=== PATIENT | male | born 1945 | race Caucasian/White ===

== ENCOUNTER → 2016-03-19 | Outpatient (CLI) | payer OTHER ==
[~2016-03-19] MED LIST: ASPI81TA28 PO; CHOL100010 PO; CINN500T PO; GLC/500 PO; LISI5TAB PO; MULT-506 PO; PRLSR20 PO; SIMV20TA2 PO
== END | disposition home or self-care (01) ==
LOC: C.LABPBG 09:14
PROVIDERS: ATTEND Internal Medicine Gastroenterology
DX: E31.21 Multiple endocrine neoplasia [MEN] type I (principal)

== ENCOUNTER → 2016-08-20 | Outpatient (CLI) | payer OTHER ==
[2016-08-20 15:25] LABS: BLOOD UREA NITROGEN 19 mg/dl (7-18)
--- NOTE | 2016-08-20 15:52 | DIAGNOSTIC IMAGING REPORT ---
BRAIN WITHOUT CONTRAST HISTORY: Memory loss. Mental status change. DEMENTIA TECHNIQUE: Multiplanar multisequence MRI of the brain was performed without the use of contrast. COMPARISON STUDY: None. FINDINGS: Mild age-related atrophy. Mild chronic small vessel change involving the periventricular and deep white matter regions. Ventricular system is midline. Sella and parasellar regions are unremarkable. Diffusion-weighted images show no evidence for an acute ischemic event. IMPRESSION: Age-related atrophy and chronic small vessel change. No acute process. The above report was generated using voice recognition software. It may contain grammatical, syntax or spelling errors. Electronically signed by: Santosh Briscoe M.D. 08/20/2016 3:51 PM Dictated Date/Time: 08/20/2016 3:49 PM
== END | disposition home or self-care (01) ==
LOC: C.MRI 14:31
PROVIDERS: ATTEND Family Medicine
DX: I10 Essential (primary) hypertension (principal); F03.90 Unspecified dementia, unspecified severity, without behavioral disturbance, psychotic disturbance, mood disturbance, and anxiety

== ENCOUNTER → 2016-09-22 | Outpatient (CLI) | payer OTHER ==
[2016-09-22 12:55] LABS: ESTIMATED AVERAGE GLUCOSE 123 mg/dl; HA1C FLAG Normal (Normal)
[2016-09-22 13:02] LABS: BLOOD UREA NITROGEN 15 mg/dl (7-18); BUN/CREATININE RATIO 17.1 (10-20); CALCIUM 9.4 mg/dl (8.5-10.1); CARBON DIOXIDE 28 mmol/L (21-32); CHLORIDE 106 mmol/L (98-107); CREATININE 0.86 mg/dl (0.60-1.40); GLUCOSE,FASTING 100 mg/dl (70-99); MAGNESIUM 2.1 mg/dl (1.8-2.4); POTASSIUM 4.3 mmol/L (3.5-5.1); SODIUM 139 mmol/L (136-145)
[2016-09-22 13:05] LABS: HEMATOCRIT 44.6 % (42-52); MEAN CELL VOLUME 95.3 fL (80-100); MEAN CORPUSCULAR HEMOGLOBIN 32.1 pg (25-34); MEAN CORPUSCULAR HGB CONC 33.6 g/dl (32-36); PLATELET COUNT 201 K/uL (130-400); RED BLOOD COUNT 4.68 M/uL (4.7-6.1); WHITE BLOOD COUNT 6.21 K/uL (4.8-10.8)
[2016-09-22 13:14] LABS: ALKALINE PHOSPHATASE 120 U/L (45-117); ALT/SGPT 32 U/L (12-78); AST/SGOT 24 U/L (15-37); CHOLESTEROL 106 mg/dl (0-200); CHOLESTEROL/HDL RATIO 2.9; HDL CHOLESTEROL 37 mg/dl; TRIGLYCERIDES 67 mg/dl (0-150); VERY LOW DENSITY LIPOPROT CALC 13 mg/dl
== END | disposition home or self-care (01) ==
LOC: C.LABPBG 09:19
PROVIDERS: ATTEND Family Medicine
DX: E78.5 Hyperlipidemia, unspecified (principal); I10 Essential (primary) hypertension; Z79.899 Other long term (current) drug therapy

== ENCOUNTER → 2016-10-22 | Outpatient (CLI) | payer OTHER | END | disposition home or self-care (01) | LOC: C.LAB 11:24 | PROVIDERS: ATTEND Psychiatry & Neurology Neurology | DX: R41.3 Other amnesia (principal) ==

== ENCOUNTER 2017-03-30 08:10 | Inpatient (IN) | payer OTHER ==
[2017-03-24 15:18] VITALS: BMI 24.0
--- NOTE | 2017-03-24 15:59 | PAT Medication Instructions ---
Service Date Mar 24, 2017. Current Home Medication List Aspirin (Aspirin Ec), 81 MG PO QAM Cholecalciferol (Vitamin D3), 1 TAB PO QAM Donepezil HCl (Aricept), 10 MG PO DAILY Lisinopril (Prinivil), 10 MG PO QAM Multivitamin (Multivitamin), 1 TAB PO QAM Omeprazole (Prilosec), 40 MG PO BID Simvastatin (Zocor), 20 MG PO HS Medication Instructions For Your Scheduled Surgery - Continue as directed: Donepezil HCl (Aricept), 10 MG PO DAILY - Hold the following medications the morning of surgery: Cholecalciferol (Vitamin D3), 1 TAB PO QAM Lisinopril (Prinivil), 10 MG PO QAM Multivitamin (Multivitamin), 1 TAB PO QAM - Take the following medications the morning of surgery with a sip of water: Omeprazole (Prilosec), 40 MG PO BID Aspirin (Aspirin Ec), 81 MG PO QAM - Take the following medications as scheduled the night before surgery: Omeprazole (Prilosec), 40 MG PO BID Simvastatin (Zocor), 20 MG PO HS If you have any questions please call us at [phone] or [phone] or [phone]
[2017-03-24 16:29] LABS: BASO % 0.3 %; BASO ABS # 0.02 K/uL (0-0.2); EOS ABS # 0.06 K/uL (0-0.5); HEMATOCRIT 42.4 % (42-52); HEMOGLOBIN 14.6 g/dL (14.0-18.0); IG# 0.01 K/uL (0.00-0.02); LYMPH % 26.7 %; LYMPH ABS # 1.54 K/uL (1.2-3.4); MEAN CORPUSCULAR HEMOGLOBIN 32.4 pg (25-34); MEAN CORPUSCULAR HGB CONC 34.4 g/dl (32-36); MONO % 8.2 %; MONO ABS # 0.47 K/uL (0.11-0.59); NEUT % 63.6 %; NEUT ABS # 3.66 K/uL (1.4-6.5); PLATELET COUNT 184 K/uL (130-400); RED CELL DISTRIBUTION WIDTH CV 13.1 % (11.5-14.5); WHITE BLOOD COUNT 5.76 K/uL (4.8-10.8)
[2017-03-24 16:36] LABS: ALBUMIN 3.4 gm/dl (3.4-5.0); CALCIUM 9.6 mg/dl (8.5-10.1); CREATININE 0.99 mg/dl (0.60-1.40); POTASSIUM 4.6 mmol/L (3.5-5.1)
--- NOTE | 2017-03-24 16:37 | DIAGNOSTIC IMAGING REPORT ---
CHEST 2 VIEWS ROUTINE CLINICAL HISTORY: pat preoperative evaluation COMPARISON STUDY: 08/16/2014 FINDINGS: The bones soft tissues and hemidiaphragms are normal. The cardiomediastinal silhouette is normal. The lungs are clear. The pulmonary vasculature is normal. IMPRESSION: Negative chest. The above report was generated using voice recognition software. It may contain grammatical, syntax or spelling errors. Electronically signed by: Santosh Briscoe M.D. 03/24/2017 4:35 PM Dictated Date/Time: 03/24/2017 4:35 PM
[2017-03-24 16:41] LABS: INR 1.1 (0.9-1.1); PTT PATIENT 26.4 SECONDS (21.0-31.0)
--- NOTE | 2017-03-24 18:13 | HISTORY & PHYSICAL EXAMINATION ---
DATE OF ADMISSION: 03/30/2017 CHIEF COMPLAINT: Bilateral knee pain. HISTORY OF PRESENT ILLNESS: Mr. Clay is a 71-year-old male with a 1- to 2-year history of worsening bilateral knee pain. The patient rates his pain an 8/10. He has pain with his daily activities. He has limited standing and walking tolerance. Pain is worse with weightbearing. The patient has had injections, bracing over the years. He leads a fairly active lifestyle and has difficulty with his ADLs. He has failed conservative treatment and is scheduled for bilateral knee replacement. PAST MEDICAL HISTORY: Borderline diabetes. He denies heart disease or DVT. PAST SURGICAL HISTORY: Lumbar discectomy, cholecystectomy, left shoulder repair, parathyroidectomy. SOCIAL HISTORY: The patient denies alcohol or tobacco use. He lives in a single story home. He is and retired. FAMILY HISTORY: Negative for DVT. MEDICATIONS: Simvastatin 40 mg half tablet daily, omeprazole 20 mg 2 tablets twice daily, lisinopril 10 mg daily, aspirin 81 mg daily, vitamin D3 one daily, multivitamin 1 daily, donepezil 10 mg daily. ALLERGIES: None. REVIEW OF SYSTEMS: See HPI. Ten other systems reviewed, all negative. PHYSICAL EXAMINATION: VITAL SIGNS: Height 6 feet 0 inch, weight 176 pounds, BMI 24. GENERAL: This is a well-developed, well-nourished male who is alert and oriented x3. Mood and affect are appropriate. HEENT: Normocephalic, atraumatic. Mucous membranes are moist and intact. NECK: Supple without lymphadenopathy. HEART: Regular rate and rhythm without murmurs, rubs or gallops. LUNGS: Clear to auscultation without wheezes or rhonchi. ABDOMEN: Soft and nontender. Bowel sounds are equal and active. EXTREMITIES: No ecchymosis, redness or warmth. Thigh and calf are soft and nontender. Right knee shows neutral alignment. Range of motion is from 0-115 degrees. He has minimal effusion. He is neurovascularly intact. Left knee shows a varus deformity. Range of motion is from 3-115 degrees with +2 laxity. His deformity does correct to neutral. He has mild effusion. He is neurovascularly intact. X-RAY EXAMINATION: AP and lateral views show joint space narrowing and osteophyte formation in both knees. IMPRESSION: Degenerative joint disease, bilateral knees. PLAN: The patient will be admitted for bilateral total knee replacement with Dr. Baez. We will plan on aspirin for DVT prophylaxis. The patient is planning on short rehab stay at [facility] upon discharge.
[2017-03-25 06:34] LABS: HEMOGLOBIN A1C 5.8 % (4.5-5.6)
[~2017-03-30] VITALS: Ht 180.3 cm; Wt 79.9 kg
[2017-03-30] VITALS (8 sets, daily range): BP systolic 105–171; BP diastolic 46–96; PULSE 53–78; TEMP 35.8–36.8; O2SAT 95–99; Ht 180.3 cm; Wt 79.9 kg
--- NOTE | 2017-03-30 08:06 | History & Physical Bridge Note ---
H&P Re-Evaluation Bridge Note: I have examined the patient, reviewed the History & Physical and in the interval since the performance of the History & Physical I have noted the following changes of clinical significance: No changes noted
[~2017-03-30 08:10] MED LIST changes: +BUPIVACAINE 0.25% 30 ML VIAL ONE; +BUPIVACAINE 0.5 % 5 MG/1 ML PF 10ML VIAL ONE; +CHOL1000 PO; -CHOL100010 PO; -CINN500T PO; +DONE5TAB9 PO; -GLC/500 PO; +LACTATED RINGER'S 1000ML 1,000 ML IV SCH; +LACTATED RINGER'S 1000ML 500 ML IV SCH
[2017-03-30] MEDS ORDERED: CEFAZOLIN SOD 1000MG/7.5 ML IV PUSH IV ONE (09:15)
[2017-03-30] MEDS ORDERED: CeleBREX 200 MG CAP ONE (09:16)
[2017-03-30] MEDS ORDERED: ACETAMINOPHEN 500 MG TAB PO ONE (09:16)
[2017-03-30] MEDS ORDERED: DEXAMETHASONE 4 MG TAB ONE (09:16)
[2017-03-30] MEDS ORDERED: GABAPENTIN 300 MG CAP PO ONE (09:17)
[2017-03-30] MEDS ORDERED: FAMOTIDINE 20 MG TAB ONE (09:17)
[2017-03-30] MEDS ORDERED: METOCLOPRAMIDE HCL 10 MG TAB PO ONE (09:18)
[2017-03-30] MEDS ORDERED: ROPIVACAINE 5MG/ML 30 ML 150 MG, BUPIVACAINE 0.5% MPF INJ 30 ML, EpINEphrine HCL INJ 0.... INFIL SCH ×8 (09:30)
[2017-03-30] MEDS ORDERED: MIDAZOLAM HCL 1 MG/ML 2ML VIAL ONE ×2 (09:37)
[2017-03-30] MEDS ORDERED: FENTANYL CITRATE INJ 50 MCG/1 ML 2 ML VIAL ONE (09:37)
[2017-03-30] MEDS ORDERED: BACITRACIN 50000 UNIT VIAL ONE (09:39)
[2017-03-30] MEDS ORDERED: POVIDONE-IODINE OP SOLN 30 ML BTL ONE (09:39)
[2017-03-30] MEDS ORDERED: ONDANSETRON INJ 2 MG/ML 2 ML VIAL IV PRN ×2 (09:45→12:45)
[2017-03-30] MEDS ORDERED: EpHEDrine SULFATE INJ 50 MG/ML AMP IV PRN (09:45)
[2017-03-30] MEDS ORDERED: ATROPINE SULFATE 0.1 MG/ML 5ML SYR IV PRN (09:45)
[2017-03-30] MEDS ORDERED: FENTANYL CITRATE INJ 50 MCG/1 ML 2 ML VIAL IV PRN (09:45)
[2017-03-30] MEDS ORDERED: BUPIVACAINE 0.5 % 5 MG/1 ML PF 10ML VIAL ONE (10:28)
--- NOTE | 2017-03-30 10:40 | History & Physical Bridge Note ---
H&P Re-Evaluation Bridge Note: I have examined the patient, reviewed the History & Physical and in the interval since the performance of the History & Physical I have noted the following changes of clinical significance: No changes noted the procedure been changed to left total knee arthroplasty after discussion with anesthesia regarding patient risk factors of the procedure will be a left total knee arthroplasty
[2017-03-30] MEDS: TRANEXAMIC ACID INJ 1,000 MG x 2 Bags IV SCH ×4 (10:43→14:57)
[2017-03-30] MEDS ORDERED: LIDOCAINE HCL 2% 2 ML VIAL (20MG/ML) ONE (12:02)
[2017-03-30] MEDS ORDERED: PROPOFOL IV EMULSION 10 MG/ML 20 ML VIAL IV ONE (12:02)
--- NOTE | 2017-03-30 12:02 | [facility] Post Operative Brief Note ---
Immediate Operative Summary Operative Date Mar 30, 2017. Pre-Operative Diagnosis left knee osteoarthritis Post-Operative Diagnosis left knee osteoarthritis Procedure(s) Performed left knee total arthroplasty Surgeon Dr. Oni Baez Enrichment Specialist Surgeon(s) Bismark Ghosh Estimated Blood Loss 5ML Findings Consistent with Post-Op Diagnosis Specimens A: Left knee bone and tissue Anesthesia Type MAC Spinal Regional Complication(s) none Disposition Disposition: Recovery Room / PACU
--- NOTE | 2017-03-30 12:03 | [facility] Operative Report ---
Operative Report Operative Date Mar 30, 2017. Pre-Operative Diagnosis left knee osteoarthritis Post-Operative Diagnosis left knee osteoarthritis Procedure(s) Performed left knee total arthroplasty utilizing Harrison & Nephew journey 2 non-block size 6 femur 6 tibia 11 Dilia [address] Oni Baez Office Manager Surgeon(s) Bismark Ghosh Estimated Blood Loss 5ML Findings Patient presents with severe end-stage DJD left knee with tricompartmental arthritis medial compartment DJD subchondral sclerosis osteophytes marginal osteophytes Specimens A: Left knee bone and tissue Anesthesia Type MAC Spinal Regional Complication(s) none Disposition Recovery Room / PACU Indications Patient presents after failing attempts at conservative management including physical therapy anti-inflammatories Roto-Rest activity modification proper findings revealed subchondral sclerosis osteophytes marginal osteophytes sclerosis bone the bone medial compartment. Description of Procedure After proper prepping and draping of the left lower extremity anterior midline incision was made over the region of the extensor extensor mechanism after meticulous hemostasis was obtained and maintained in subcutaneous tissues a medial parapatellar incision was made The patella was subluxed lateralward the medial lateral gutter were cleaned from any hypertrophic synovitis and scar tissue of the distal femoral block was placed and the distal femoral osteotomy cut was made subsequently the chamfers anterior and posterior osteotomy cuts were made utilizing the 4-in-1 block the tibia was subsequently subluxed anteriorward medial and ateral meniscal remnants were excised in their entirety remnants of the anterior and posterior cruciate ligaments were excised in their entirety excellent exposure of the proximal tibia was obtained the tibial osteotomy guide was placed on the proximal tibial osteotomy cut was made once again the knee was irrigated with copious amounts of sterile saline solution the patella was subsequently everted lateralward thickened scar tissue around the patella was removed the patella was subsequently cut utilizing a freehand technique and was drilled prepared for final preparation and placement of patella socially flexion-extension gaps were checked and the equal and symmetric trials were placed to the appropriate femoral and tibial trials with poly-spacer being placed for equal flexion and extension gaps and full range of motion including extension to 0 and flexion to 140 the trial components after having been taken to recovery range of motion was subsequently removed meticulous hemostasis was obtained and maintained subsequently a knee block injection of joint cocktail including ropivacaine 0.5% 150 mg. Bupivacaine 0.5 % epinephrine 1-200,030 mL's toradol 30 mg dexamethasone 4 mg ketamine 10 mg clonidine 100 micrograms normal saline solution 30 mg was infiltrated into the soft tissues of the posterior knee medial lateral gutters and periosteal synovium special attention was paid to protect neurovascular structures at all times subsequently trial components having been removed the knee was irrigated with sterile saline solution. debris was removed the proximal tibia was subsequently prepared and was made ready for the placement of the tibial component tibial component was also cemented and tamped into position the femoral component was subsequently placed and cemented in the position the patellar component was subsequently cemented in position because hemostasis once again obtained and maintained wound having been thoroughly irrigated with debridement and debridement lavage was performed as well as a medial parapatellar incision closed with #1 Vicryl in interrupted fashion subcutaneous was closed with #2 Vicryl skin was closed with skin clips. PA-C was necessary for prepping and drapping as well as wound closure of deep fascia Sub cutaneous tissue and skin and was necessary for the case. A sterile compressive dressing was placed patient was taken to recovery in stable condition of report dictated by Nestor I attest to the content of the Intraoperative Record and any orders documented therein. Any exceptions are noted below. I attest to the content of the Intraoperative Record and any orders documented therein. Any exceptions are noted below.
[2017-03-30] MEDS ORDERED: OXYCODONE HCL IR 5 MG TAB (IMMEDIATE RELEASE) PO PRN (12:45)
[2017-03-30] MEDS ORDERED: ALUMINUM/MAGNESIUM/SIMETH (MAALOX MAX) 30 ML UDC PO PRN (12:45)
[2017-03-30] MEDS ORDERED: CEFAZOLIN IV 2,000 MG in DEXTROSE 5% 50ML 50 ML IV SCH (12:45)
[2017-03-30] MEDS ORDERED: TRAMADOL HCL 50 MG TAB PO PRN (12:45)
[2017-03-30] MEDS ORDERED: MoRPHine SULFATE 2 MG/ML CARP IV PRN (12:45)
[2017-03-30] MEDS ORDERED: MAGNESIUM HYDROXIDE SUSP 30 ML UDC PO PRN (12:45)
[2017-03-30] MEDS ORDERED: TAMSULOSIN HCL 0.4 MG CAP PO PRN (12:45)
--- NOTE | 2017-03-30 13:05 | Anesthesiology Progress Note ---
Anesthesia Post Op Note Date & Time Mar 30, 2017 at 13:05 Vital Signs Pain Intensity: 0 Vital Signs Past 12 Hours Date Time Temp Pulse Resp B/P (MAP) Pulse Ox O2 Delivery O2 Flow Rate FiO2 03/30/17 12:45 55 16 117/67 100 Oxymask 8 03/30/17 12:35 36.3 60 16 121/71 99 Oxymask 8 03/30/17 09:10 36.4 57 18 171/96 97 Room Air Notes Mental Status: alert / awake / arousable, participated in evaluation Pt Amnestic to Procedure: Yes Nausea / Vomiting: adequately controlled Pain: adequately controlled Airway Patency, RR, SpO2: stable & adequate BP & HR: stable & adequate Hydration State: stable & adequate Neuraxial Anesthesia: was administered, sensory block is resolving Anesthetic Complications: no major complications apparent
--- NOTE | 2017-03-30 13:18 | DIAGNOSTIC IMAGING REPORT ---
L KNEE 1 OR 2 VIEWS ROUTINE CLINICAL HISTORY: Left knee arthroplasty. COMPARISON: None FINDINGS: Alignment of the total left knee arthroplasty is anatomic. There is no fracture or unexpected radiopaque foreign body. There are drains and skin sumi. IMPRESSION: Expected findings following total left knee arthroplasty. Electronically signed by: Magdiel Saucedo M.D. 03/30/2017 1:17 PM Dictated Date/Time: 03/30/2017 1:16 PM
[2017-03-30] MEDS: ACETAMINOPHEN 500 MG TAB PO SCH (15:59)
[2017-03-30] MEDS ORDERED: PNEUMOCOCCAL ADMINISTRATION CHARGE ONE (18:00)
[2017-03-30] MEDS ORDERED: PNEUMOCOCCAL POLYSACCHARIDES 25 MCG/0.5 ML VIAL/SYR IM. ONE (18:00)
[2017-03-30] MEDS: CEFAZOLIN IV 2,000 MG in SYRINGE 0 ML IV SCH (18:57)
[2017-03-30] MEDS: FERROUS GLUCONATE 324 MG TAB PO SCH (18:57)
[2017-03-30] MEDS: SODIUM CHLORIDE 0.9% 1000ML 1,000 ML IV SCH (21:31)
[2017-03-30] MEDS: SIMVASTATIN 20 MG TAB PO SCH (21:31)
[2017-03-30] MEDS: ASPIRIN 81 MG ECTAB PO SCH (21:32)
[2017-03-30] MEDS: CeleBREX 200 MG CAP PO SCH (21:32)
[2017-03-30] MEDS: SENNA 8.6 MG TAB PO SCH (21:33)
[2017-03-30] MEDS: DOCUSATE SODIUM 100 MG CAP PO SCH (21:33)
[2017-03-30] MEDS ORDERED: NURSING VERBAL MED ORDER ONE (23:00)
[2017-03-31] VITALS (7 sets, daily range): BP systolic 99–112; BP diastolic 47–63; PULSE 61–79; TEMP 36.1–36.9; O2SAT 94–100
[2017-03-31] MEDS: ACETAMINOPHEN 500 MG TAB PO SCH ×3 (00:31→17:13)
[2017-03-31] MEDS: CEFAZOLIN IV 2,000 MG in SYRINGE 0 ML IV SCH (01:53)
[2017-03-31] MEDS: SODIUM CHLORIDE 0.9% 1000ML 1,000 ML IV SCH (07:18)
[2017-03-31 07:44] LABS: HEMATOCRIT 34.2 % (42-52); MEAN CELL VOLUME 92.2 fL (80-100); MEAN CORPUSCULAR HEMOGLOBIN 32.3 pg (25-34); MEAN CORPUSCULAR HGB CONC 35.1 g/dl (32-36); MEAN PLATELET VOLUME 9.7 fL (7.4-10.4); PLATELET COUNT 172 K/uL (130-400); RED CELL DISTRIBUTION WIDTH CV 12.7 % (11.5-14.5); RED CELL DISTRIBUTION WIDTH SD 43.2 fL (36.4-46.3); WHITE BLOOD COUNT 18.58 K/uL (4.8-10.8)
--- NOTE | 2017-03-31 08:11 | Orthopedic Progress Note ---
Orthopedic Progress Note Date of Service Mar 31, 2017. Subjective Post OP Day: 1 Reports: feeling well, Denies: chest pain, SOB, nausea / vomiting, light headedness, calf pain Objective calves soft nontender, N/V intact, capillary refill less than 2 sec., dressing C /D/I, A&O x3, toes mobile, hemovac drainage (105/5cc per shift) Date Time Temp Pulse Resp B/P (MAP) Pulse Ox O2 Delivery O2 Flow Rate FiO2 03/31/17 08:00 36.1 61 12 110/60 (77) 100 Room Air 03/31/17 06:58 36.8 79 18 112/63 (79) 98 Room Air 03/31/17 03:20 36.9 75 16 99/47 (64) 97 Room Air 03/31/17 00:30 Room Air 03/30/17 23:29 36.7 72 17 105/46 (65) 96 Room Air 03/30/17 20:03 36.8 71 18 116/57 (76) 95 Room Air 03/30/17 16:42 36.4 78 18 146/72 (96) 99 Nasal Cannula 2.0 03/30/17 15:44 35.8 71 16 147/81 (103) 98 Nasal Cannula 3.0 03/30/17 15:03 69 15 137/70 (92) 99 03/30/17 14:36 36.4 58 15 135/75 (95) 99 03/30/17 13:45 Nasal Cannula 2.0 03/30/17 13:45 Nasal Cannula 2.0 03/30/17 13:45 36.4 53 16 131/69 (89) 96 Nasal Cannula 2.0 03/30/17 13:15 36.5 54 13 123/65 99 Nasal Cannula 2 03/30/17 13:05 59 20 130/65 97 Nasal Cannula 2 03/30/17 12:55 62 14 118/79 93 Nasal Cannula 2 03/30/17 12:45 55 16 117/67 100 Oxymask 8 03/30/17 12:35 36.3 60 16 121/71 99 Oxymask 8 03/30/17 09:10 36.4 57 18 171/96 97 Room Air Laboratory Results 24 Hours: Test 03/31/17 07:18 Hematocrit 34.2 % Hemoglobin 12.0 g/dL Assessment & Plan Assessment: POD#1 sp left TKA Plan: PT/OT DVT proph- ASA 81mg bid Pain management- Alisa, Tylenol DC planning- Initially patient was considering inpt rehab with BL TKA. Now that he is just a single he may consider home PT. Patient will see how PT goes today and discuss with .Anticipate DC tomorrow.
[2017-03-31 08:13] LABS: CALCIUM 9.1 mg/dl (8.5-10.1); CREATININE 1.07 mg/dl (0.60-1.40); POTASSIUM 3.8 mmol/L (3.5-5.1)
[2017-03-31] MEDS: FERROUS GLUCONATE 324 MG TAB PO SCH ×3 (08:30→17:14)
[2017-03-31] MEDS: LISINOPRIL 5 MG TAB PO SCH (09:11)
[2017-03-31] MEDS: DOCUSATE SODIUM 100 MG CAP PO SCH ×2 (09:11→20:54)
[2017-03-31] MEDS: CeleBREX 200 MG CAP PO SCH ×2 (09:11→20:53)
[2017-03-31] MEDS: DONEPEZIL HCL 5 MG TAB PO SCH (09:11)
[2017-03-31] MEDS: ASPIRIN 81 MG ECTAB PO SCH ×2 (09:12→20:53)
[2017-03-31] MEDS: CHOLECALCIFEROL 1000 INTER.UNIT TAB PO SCH (09:12)
[2017-03-31] MEDS: MULTIVITAMIN TAB PO SCH (09:12)
[2017-03-31] MEDS: PANTOprazole SOD 40 MG TAB PO SCH (09:56)
[2017-03-31] MEDS: SENNA 8.6 MG TAB PO SCH (20:54)
[2017-03-31] MEDS: SIMVASTATIN 20 MG TAB PO SCH (20:54)
[2017-04-01] MEDS: ACETAMINOPHEN 500 MG TAB PO SCH ×2 (00:25→08:55)
[2017-04-01 07:03] VITALS: BP 124/62; PULSE 64; TEMP 36.9; O2SAT 97
--- NOTE | 2017-04-01 07:55 | Orthopedic Progress Note ---
Orthopedic Progress Note Date of Service Apr 01, 2017. Subjective Post OP Day: 2 Reports: feeling well, Denies: complaints Objective calves soft nontender, N/V intact, dressing C/D/I (Silverlon with scant drainage noted), A&O x3, toes mobile Date Time Temp Pulse Resp B/P (MAP) Pulse Ox O2 Delivery O2 Flow Rate FiO2 04/01/17 07:03 36.9 64 19 124/62 (82) 97 Room Air 04/01/17 01:15 Room Air 03/31/17 23:12 36.8 76 15 105/49 (67) 94 Room Air 03/31/17 15:15 Room Air 03/31/17 15:13 36.7 64 16 101/47 (65) 94 Room Air 03/31/17 12:20 36.8 65 14 110/54 (72) 96 Room Air 03/31/17 10:21 100 Room Air 03/31/17 08:00 36.1 61 12 110/60 (77) 100 Room Air Assessment & Plan Assessment: POD#2 sp left TKA Plan: PT/OT DVT proph- ASA 81mg bid Pain management DC planning- Now planning for home health services. Plan for dc later today. Inhouse Planning Pain Management: Celebrex, Ultram, Morphine, PO Tylenol, Oxy IR DVT Prophylaxis: TEDs, SCDs, ASA Discharge Planning Discharge Planning: home with home health
[2017-04-01] MEDS ORDERED: RXC5 PO (07:58)
[2017-04-01] MEDS ORDERED: CLB200 PO (07:58)
[2017-04-01] MEDS ORDERED: SENN-61 PO (07:58)
[2017-04-01] MEDS ORDERED: ASPI81TA28 PO (07:58)
[2017-04-01] MEDS ORDERED: ACET-24 PO (07:58)
--- NOTE | 2017-04-01 08:03 | Discharge Instructions ---
Discharge Instructions Date of Service Apr 01, 2017. Admission Reason for Admission: Bilateral Knee Osteoarthritis Discharge Discharge Diagnosis / Problem: Left Knee Djd Discharge Goals Goal(s): Decrease discomfort, Improve function, Increase independence Activity Recommendations Activity Limitations: per Instructions/Follow-up section Weightbearing Status: Left weightbearing (as tolerated) . Instructions / Follow-Up Instructions / Follow-Up ACTIVITY RECOMMENDATIONS: SELF CARE INSTRUCTIONS AFTER TOTAL KNEE REPLACEMENT A. You may need to continue a physical therapy program after discharge from the hospital. There are several options available to you. Your doctor will assist you in selecting the best one for you. 1. An out-patient facility 2 to 3 times a week for therapy or home therapy. 2. Continue working on all exercises taught to you in the hospital. Your goals should be to increase bending of your knee to 90 degrees and beyond and to fully straighten your knee. B. You may progress at your own pace from walking with a walker or crutches to a cane; then to no assistive devices. C. Make walking a part of your daily routine. Be up as much as comfortable with rest periods throughout the day. Rest with leg elevation is very important. Use the ice wrap frequently for the first 3-4 weeks. D. There are no restrictions on activities. You may ride in a car, shop, participate in cork molder and all social activities. E. Wear the long elastic stockings (SAMMIE hose) 20 hours a day for 2 weeks after surgery. They can be removed several times a day for laundering and for a bath. F. You may shower, no tub baths until cleared by your doctor. SPECIAL CARE INSTRUCTIONS: VERY IMPORTANT TO READ AND REVIEW A. There are a few signs you need to watch for after you are home. Call [facility] if you notice any of the followin. Increased severe knee pain. Some pain is expected especially when you exercise. 2. Increased swelling in your leg or knee; pain or swelling of the calf muscle in either lower leg. 3. Any fluid drainage from the incision. 4. Shortness of breath or chest pain. B. Please call [facility] at if you have any concerns or questions about your operation or recovery. The doctor or his nurse will return your call promptly. C. You must take antibiotics before dental work, bladder, bowel or other surgery. Your doctor will provide you with a permanent care to carry describing this precaution. IMPORTANT: * REMEMBER TO TAKE ASPIRIN, 81 MG, TWICE DAILY FOR 4 WEEKS UNLESS OTHERWISE DIRECTED. THIS IS YOUR BLOOD THINNER. * HIGH RISK PATIENTS MAY BE PRESCRIBED A STRONGER BLOOD THINNER. THIS WILL BE PROVIDED AT DISCHARGE. * CALL IF INCREASED PAIN, REDNESS, DRAINAGE OR FEVER GREATER THAT 101. * WEAR SAMMIE HOSE 20 HOURS PER DAY FOR 2 WEEKS. * Silverlon- This is a large adhesive bandage that contains silver ions. This helps your incision heal by fighting off bacteria and protecting it from the outside environment. You are permitted to shower with this dressing. This will remain on your incision for 7 days and then should be removed. Some visible blood or drainage through the dressing window is normal. If there is significant drainage or leaking noted before the 7 days notify your doctor's office immediately. Once removed, keep incision clean and dry. If there is any drainage or redness noted, please call your surgeon. . FOLLOW UP VISIT: If appointment is not already scheduled: Please call [facility] to make a follow-up appointment for 2 weeks after your surgery at . Current Hospital Diet Patient's current hospital diet: AHA Diet (Heart Healthy) Discharge Diet Recommended Diet: AHA Diet (Heart Healthy) Procedures Procedures Performed: left knee total arthroplasty utilizing Harrison & Nephew journey 2 non-block size 6 femur 6 tibia 11 Dilia 32 oval patella Pending Studies Studies pending at discharge: no Laboratory Results Hemoglobin A1c Test 03/24/17 16:04 Range/Units Estimated Average Glucose 120 mg/dl Hemoglobin A1c 5.8 H 4.5-5.6 % Medical Emergencies . Who to Call and When: Medical Emergencies: If at any time you feel your situation is an emergency, please call 911 immediately. . Non-Emergent Contact Non-Emergency issues call your: Surgeon Call Non-Emergent contact if: temperature is above 101.5, your pain is not controlled, your pain is worsening, wound has increased drainage, wound has increased redness . "Provider Documentation" section prepared by Bismark Mcmahon. . VTE Core Measure Inpt VTE Proph given/why not?: Other Anticoagulation, T.E.D. Stockings, SCD's [place] Drug Monitoring Program Search Results: patient reviewed within database, no issues identified
[2017-04-01 08:49] LABS: CALCIUM 9.3 mg/dl (8.5-10.1); CREATININE 0.91 mg/dl (0.60-1.40); POTASSIUM 4.8 mmol/L (3.5-5.1)
[2017-04-01] MEDS: DOCUSATE SODIUM 100 MG CAP PO SCH (08:55)
[2017-04-01] MEDS: CHOLECALCIFEROL 1000 INTER.UNIT TAB PO SCH (08:55)
[2017-04-01] MEDS: ASPIRIN 81 MG ECTAB PO SCH (08:55)
[2017-04-01] MEDS: CeleBREX 200 MG CAP PO SCH (08:55)
[2017-04-01] MEDS: DONEPEZIL HCL 5 MG TAB PO SCH (08:56)
[2017-04-01] MEDS: MULTIVITAMIN TAB PO SCH (08:57)
[2017-04-01] MEDS: LISINOPRIL 5 MG TAB PO SCH (08:57)
[2017-04-01] MEDS: FERROUS GLUCONATE 324 MG TAB PO SCH ×2 (08:57→13:08)
[2017-04-01] MEDS: PANTOprazole SOD 40 MG TAB PO SCH (09:00)
[2017-04-01 10:36] VITALS: BP 124/62; PULSE 64; TEMP 36.9; O2SAT 97
== END 2017-04-01 13:20 | disposition home health service (06) | DRG 470 ==
LOC: C.ACU 08:10 → C.3E 09:04 → ENRESERV 12:58
PROVIDERS: ADMIT Orthopaedic Surgery; ATTEND Orthopaedic Surgery
PROC: 0SRD0J9 Replacement of Left Knee Joint with Synthetic Substitute, Cemented, Open Approach (ICD-10-PCS; principal; 2017-03-30 10:45)
DX: M17.12 Unilateral primary osteoarthritis, left knee (principal); R73.03 Prediabetes; Z79.82 Long term (current) use of aspirin; Z79.899 Other long term (current) drug therapy; Z98.890 Other specified postprocedural states

== ENCOUNTER 2017-05-18 06:19 | Inpatient (IN) | payer OTHER ==
[2017-04-20 15:00] VITALS: Ht 180.3 cm; Wt 77.3 kg
[~2017-05-18] VITALS: Ht 180.3 cm; Wt 77.3 kg
[2017-05-18] VITALS (10 sets, daily range): BP systolic 99–154; BP diastolic 52–79; PULSE 59–77; TEMP 36.4–36.5; O2SAT 93–100
[~2017-05-18 06:19] MED LIST changes: +ACET-24 PO; +ACETAMINOPHEN 500 MG TAB PO SCH; -BUPIVACAINE 0.25% 30 ML VIAL ONE; -BUPIVACAINE 0.5 % 5 MG/1 ML PF 10ML VIAL ONE; +CEFAZOLIN 1000MG IV PUSH 7.5 ML IV SCH; +CINN1CAP2 PO; +CLB200 PO; +CeleBREX 200 MG CAP PO SCH; +DEXAMETHASONE 4 MG TAB PO SCH; +DONE1TAB26 PO; -DONE5TAB9 PO; +FAMOTIDINE 20 MG TAB PO SCH; +GABAPENTIN 300 MG CAP PO SCH; +IBUP600T44 PO; -LACTATED RINGER'S 1000ML 1,000 ML IV SCH; +METOCLOPRAMIDE HCL 10 MG TAB PO SCH; +POLY335019 PO; +ROPIVACAINE 5MG/ML 30 ML 150 MG, BUPIVACAINE 0.5% MPF INJ 30 ML, EpINEphrine HCL INJ 0.... INFIL SCH; +TRAM-10 PO
[2017-05-18] MEDS: TRANEXAMIC ACID INJ 1,000 MG x 2 Bags IV SCH ×4 (06:30→08:10)
[2017-05-18] MEDS ORDERED: BUPIVACAINE 0.25% 30 ML VIAL ONE (06:35)
[2017-05-18] MEDS ORDERED: BUPIVACAINE 0.5 % 5 MG/1 ML PF 10ML VIAL ONE (06:35)
[2017-05-18] MEDS ORDERED: METOPROLOL TARTRATE 1 MG/ML VIAL ONE (07:00)
[2017-05-18] MEDS ORDERED: FENTANYL CITRATE INJ 50 MCG/1 ML 2 ML VIAL ONE (07:00)
[2017-05-18] MEDS ORDERED: MIDAZOLAM HCL 1 MG/ML 2ML VIAL ONE (07:01)
[2017-05-18] MEDS ORDERED: ORTHO JOINT ANESTHETIC ONE (07:08)
[2017-05-18] MEDS ORDERED: POVIDONE-IODINE OP SOLN 30 ML BTL ONE (07:08)
[2017-05-18] MEDS ORDERED: BACITRACIN 50000 UNIT VIAL ONE (07:08)
--- NOTE | 2017-05-18 07:09 | History and Physical ---
History & Physical Date May 18, 2017. Chief Complaint Patient presents as a 71-year-old white male with severe end-stage DJD about his right knee presents for right total knee arthroplasties failed attempts at conservative management presents for a total knee arthroplasty postoperative pain management DVT prophylaxis antibiotics History of Present Illness The patient is a 72 year old male with complaints of ongoing right knee pain as previously undergone left total knee arthroplasty successfully presents for right total knee arthroplasty postoperative pain meds DVT prophylaxis for failed attempts at conservative management x-rays will be evidence of subchondral sclerosis cystic changes marginal osteophytes Past Medical/Surgical History Medical Problems: (1) Diabetes (2) High blood pressure (3) Kidney stone (4) Left knee DJD (5) Ulcer Surgical Problems: (1) Hx of cholecystectomy Additional History Hepatic Disease: No Endocrine Disorder: Yes Kidney Disease: No Hypertension: No Heart Disease: No Bleeding Tendencies: No Infectious Diseases: No Allergies Coded Allergies: No Known Allergies (Unverified , 05/18/17) Home Medications Scheduled Acetaminophen (Sb Non-Aspirin Extra Stre), 1,000 MG PO Q8H Aspirin (Aspirin Ec), 81 MG PO BID Cholecalciferol (Vitamin D3), 1,000 UNITS PO QAM Cinnamon (Cinnamon), 500 MG PO HS Donepezil Hydrochloride (Donepezil Hcl), 10 MG PO HS Lisinopril (Prinivil), 5 MG PO QAM Multivitamin (Multivitamin), 1 TAB PO QAM Omeprazole (Prilosec), 40 MG PO BID Polyethylene Glycol 3350 (Miralax), 17 GM PO QAM Simvastatin (Zocor), 20 MG PO HS Scheduled PRN Celecoxib (Celebrex), 200 MG PO DAILY PRN for Pain Ibuprofen (Motrin), Unknown Dose PO UD PRN for Pain Tramadol (Ultram), 50 MG PO Q4H PRN for Pain Physical Examination Skin: warm/dry, no rash Eyes: normal inspection, EOMI, sclerae normal ENT: normal ENT inspection, pharynx normal Head: normocephalic, atraumatic Neck: supple, no adenopathy, trachea midline Respiratory/Chest: lungs clear, normal breath sounds, no respiratory distress Cardiovascular: regular rate, rhythm, no edema, no murmur Abdomen / GI: normal bowel sounds, non tender Back: normal inspection Extremities: + pertinent finding (djd rt knee) Diagnosis Severe end-stage right degenerative joint disease right knee with varus alignment subchondral sclerosis marginal osteophytes subchondral cystic changes Plan of Treatment Plan for total knee arthroplasty postoperative pain management DVT prophylaxis antibiotics as necessary
[2017-05-18] MEDS ORDERED: ATROPINE SULFATE 0.1 MG/ML 5ML SYR IV PRN (08:45)
[2017-05-18] MEDS ORDERED: EpHEDrine SULFATE INJ 50 MG/ML AMP IV PRN (08:45)
[2017-05-18] MEDS ORDERED: LIDOCAINE HCL 2% 2 ML VIAL (20MG/ML) ONE (09:13)
[2017-05-18] MEDS ORDERED: ONDANSETRON INJ 2 MG/ML 2 ML VIAL ONE (09:13)
[2017-05-18] MEDS ORDERED: PROPOFOL IV EMULSION 10 MG/ML 20 ML VIAL IV ONE (09:26)
--- NOTE | 2017-05-18 09:29 | [facility] Post Operative Brief Note ---
Immediate Operative Summary Operative Date May 18, 2017. Pre-Operative Diagnosis Right Knee Degenerative Joint Disease Post-Operative Diagnosis Right Knee Degenerative Joint Disease Procedure(s) Performed Right Total Knee Arthroplasty utilizing ChartITright non-block journey 03/16 femur 6 tibia 12 Kira [address] Baez Mine Inspector Surgeon(s) Bismark Mcmahon PA-C Estimated Blood Loss 5 cc Findings Consistent with Post-Op Diagnosis Specimens A: Right Knee Bone and Tissue Anesthesia Type MAC Spinal Regional Complication(s) none Disposition Disposition: Recovery Room / PACU
--- NOTE | 2017-05-18 09:30 | [facility] Operative Report ---
Operative Report Operative Date May 18, 2017. Pre-Operative Diagnosis Right Knee Degenerative Joint Disease Post-Operative Diagnosis Right Knee Degenerative Joint Disease Procedure(s) Performed Right Total Knee Arthroplasty utilizing Zamzee non-block journey / femur 6 tibia 12 Kira [address] Baez Laboratory Coordinator Surgeon(s) Bismark Mcmahon PA-C Estimated Blood Loss 5 cc Findings Patient presents with varus alignment subchondral sclerosis marginal osteophytes cystic changes bone the bone changes medial compartment patellofemoral compartment no response to conservative therapy Specimens A: Right Knee Bone and Tissue Anesthesia Type MAC Spinal Regional Complication(s) none Disposition Recovery Room / PACU Indications Patient presents with severe end-stage DJD varus alignment subchondral sclerosis marginal osteophytes subchondral cystic changes no response to conservative therapy the patient has had previous injections viscous accommodation corticosteroid injections relative rest activity modification presents for right total knee arthroplasty Description of Procedure After proper prepping and draping of the Right lower extremity anterior midline incision was made over the region of the extensor extensor mechanism after meticulous hemostasis was obtained and maintained in subcutaneous tissues a medial parapatellar incision was made The patella was subluxed lateralward the medial lateral gutter were cleaned from any hypertrophic synovitis and scar tissue of the distal femoral block was placed and the distal femoral osteotomy cut was made subsequently the chamfers anterior and posterior osteotomy cuts were made utilizing the 4-in-1 block the tibia was subsequently subluxed anteriorward medial and ateral meniscal remnants were excised in their entirety remnants of the anterior and posterior cruciate ligaments were excised in their entirety excellent exposure of the proximal tibia was obtained the tibial osteotomy guide was placed on the proximal tibial osteotomy cut was made once again the knee was irrigated with copious amounts of sterile saline solution the patella was subsequently everted lateralward thickened scar tissue around the patella was removed the patella was subsequently cut utilizing a freehand technique and was drilled prepared for final preparation and placement of patella socially flexion-extension gaps were checked and the equal and symmetric trials were placed to the appropriate femoral and tibial trials with poly-spacer being placed for equal flexion and extension gaps and full range of motion including extension to 0 and flexion to 140 the trial components after having been taken to recovery range of motion was subsequently removed meticulous hemostasis was obtained and maintained subsequently a knee block injection of joint cocktail including ropivacaine 0.5% 150 mg. Bupivacaine 0.5 % epinephrine 1-200,030 mL's toradol 30 mg dexamethasone 4 mg ketamine 10 mg clonidine 100 micrograms normal saline solution 30 mg was infiltrated into the soft tissues of the posterior knee medial lateral gutters and periosteal synovium special attention was paid to protect neurovascular structures at all times subsequently trial components having been removed the knee was irrigated with sterile saline solution. debris was removed the proximal tibia was subsequently prepared and was made ready for the placement of the tibial component tibial component was also cemented and tamped into position the femoral component was subsequently placed and cemented in the position the patellar component was subsequently cemented in position because hemostasis once again obtained and maintained wound having been thoroughly irrigated with debridement and debridement lavage was performed as well as a medial parapatellar incision closed with #1 Vicryl in interrupted fashion subcutaneous was closed with #2 Vicryl skin was closed with skin clips. PA-C was necessary for prepping and drapping as well as wound closure of deep fascia Sub cutaneous tissue and skin and was necessary for the case. A sterile compressive dressing was placed patient was taken to recovery in stable condition of report dictated by Nestor I attest to the content of the Intraoperative Record and any orders documented therein. Any exceptions are noted below. I attest to the content of the Intraoperative Record and any orders documented therein. Any exceptions are noted below.
[2017-05-18] MEDS ORDERED: CEFAZOLIN IV 1,000 MG in DEXTROSE 5% 50ML 50 ML IV SCH (10:15)
[2017-05-18] MEDS ORDERED: ONDANSETRON INJ 2 MG/ML 2 ML VIAL IV PRN (10:15)
[2017-05-18] MEDS ORDERED: MoRPHine SULFATE 2 MG/ML CARP IV PRN (10:15)
[2017-05-18] MEDS ORDERED: OXYCODONE HCL IR 5 MG TAB (IMMEDIATE RELEASE) PO PRN (10:15)
[2017-05-18] MEDS ORDERED: ALUMINUM/MAGNESIUM/SIMETH (MAALOX MAX) 30 ML UDC PO PRN (10:15)
[2017-05-18] MEDS ORDERED: TAMSULOSIN HCL 0.4 MG CAP PO PRN (10:15)
--- NOTE | 2017-05-18 10:50 | Anesthesiology Progress Note ---
Anesthesia Post Op Note Date & Time May 18, 2017 at 10:50 Vital Signs Pain Intensity: 0 Vital Signs Past 12 Hours Date Time Temp Pulse Resp B/P (MAP) Pulse Ox O2 Delivery O2 Flow Rate FiO2 05/18/17 10:47 66 16 100 05/18/17 10:47 65 16 05/18/17 10:45 121/65 05/18/17 10:42 59 14 99 05/18/17 10:42 60 14 05/18/17 10:40 121/64 05/18/17 10:37 61 12 05/18/17 10:37 61 12 100 05/18/17 10:35 117/70 05/18/17 10:35 36.6 100 Nasal Cannula 2 05/18/17 10:32 61 12 05/18/17 10:32 61 12 99 05/18/17 10:31 62 16 05/18/17 10:31 63 16 99 05/18/17 10:30 126/69 05/18/17 10:26 61 16 05/18/17 10:26 61 16 99 05/18/17 10:25 126/67 05/18/17 10:21 62 12 05/18/17 10:21 62 12 100 05/18/17 10:20 112/64 05/18/17 10:16 68 12 100 05/18/17 10:16 67 12 05/18/17 10:15 116/64 05/18/17 10:14 61 13 100 05/18/17 10:14 59 13 05/18/17 10:10 123/66 05/18/17 10:09 66 16 100 05/18/17 10:09 65 16 05/18/17 10:06 114/60 05/18/17 10:04 65 20 128/63 100 05/18/17 10:04 66 20 05/18/17 10:04 36.6 69 14 128/63 100 Oxymask 10 05/18/17 06:50 36.4 63 18 154/79 96 Room Air Notes Mental Status: alert / awake / arousable, participated in evaluation Pt Amnestic to Procedure: Yes Nausea / Vomiting: adequately controlled Pain: adequately controlled Airway Patency, RR, SpO2: stable & adequate BP & HR: stable & adequate Hydration State: stable & adequate Neuraxial Anesthesia: was administered, sensory block is resolving Anesthetic Complications: no major complications apparent
--- NOTE | 2017-05-18 10:52 | DIAGNOSTIC IMAGING REPORT ---
RIGHT KNEE 2 VIEWS History: Right total knee arthroplasty. Degenerative arthritis. Postop. FINDINGS: The patient is status post a right total knee arthroplasty. The hardware is intact. No fracture or dislocation. Skin sumi and surgical drains are in place. IMPRESSION: Right total knee arthroplasty. No evidence for hardware complication. Electronically signed by: Rudi Farrell M.D. 05/18/2017 10:51 AM Dictated Date/Time: 05/18/2017 10:47 AM
[2017-05-18] MEDS: D5W AND 1/2NSS + 20MEQ KCL 1,000 ML IV SCH ×2 (13:06→21:49)
[2017-05-18] MEDS: FERROUS GLUCONATE 324 MG TAB PO SCH ×2 (13:06→17:54)
[2017-05-18] MEDS: ACETAMINOPHEN 500 MG TAB PO SCH ×2 (14:43→21:16)
[2017-05-18] MEDS: CEFAZOLIN IV 1,000 MG in SYRINGE 0 ML IV SCH ×2 (15:18→23:47)
[2017-05-18] MEDS: DONEPEZIL HCL 10 MG TAB PO SCH (21:14)
[2017-05-18] MEDS: ASPIRIN 81 MG ECTAB PO SCH (21:14)
[2017-05-18] MEDS: SIMVASTATIN 20 MG TAB PO SCH (21:14)
[2017-05-18] MEDS: CeleBREX 200 MG CAP PO SCH (21:15)
[2017-05-19 03:36] VITALS: BP 125/70; PULSE 95; TEMP 36.6; O2SAT 99
[2017-05-19] MEDS: ACETAMINOPHEN 500 MG TAB PO SCH ×3 (06:23→21:04)
[2017-05-19 06:46] LABS: HEMATOCRIT 33.3 % (42-52); HEMOGLOBIN 11.7 g/dL (14.0-18.0); MEAN CELL VOLUME 90.2 fL (80-100); MEAN CORPUSCULAR HEMOGLOBIN 31.7 pg (25-34); MEAN CORPUSCULAR HGB CONC 35.1 g/dl (32-36); MEAN PLATELET VOLUME 9.3 fL (7.4-10.4); PLATELET COUNT 222 K/uL (130-400); RED CELL DISTRIBUTION WIDTH SD 42.6 fL (36.4-46.3); WHITE BLOOD COUNT 18.36 K/uL (4.8-10.8)
[2017-05-19 07:22] LABS: CALCIUM 9.4 mg/dl (8.5-10.1); CREATININE 0.86 mg/dl (0.60-1.40); POTASSIUM 4.5 mmol/L (3.5-5.1)
[2017-05-19] MEDS: D5W AND 1/2NSS + 20MEQ KCL 1,000 ML IV SCH (07:42)
--- NOTE | 2017-05-19 08:30 | Orthopedic Progress Note ---
Orthopedic Progress Note Date of Service May 19, 2017. Subjective Post OP Day: 1 Reports: feeling well, Denies: chest pain, SOB, nausea / vomiting, light headedness, calf pain Additional Notes: Pt states he's unable to dorsiflex his foot. No other complaints at this time. Discussed that it was likely due to intraop injection. Objective calves soft nontender, dressing C/D/I, A&O x3, hemovac drainage (250ml) Unable to dorsiflex the foot/great toe on the operative leg. States he has sensation on the dorsum of the foot. Plantar flexion is strong. Date Time Temp Pulse Resp B/P (MAP) Pulse Ox O2 Delivery O2 Flow Rate FiO2 05/19/17 07:45 Room Air 05/19/17 03:36 36.6 95 17 125/70 (88) 99 Room Air 05/18/17 23:30 94 Room Air 2.0 05/18/17 23:19 36.5 67 15 130/72 (91) 94 Room Air 05/18/17 19:28 36.5 74 16 99/52 (68) 93 05/18/17 15:25 Room Air 05/18/17 15:12 77 16 111/61 (78) 97 Room Air 05/18/17 14:00 36.4 70 16 119/66 (83) 100 Room Air 05/18/17 13:00 36.4 73 16 127/73 (91) 100 Room Air 05/18/17 12:06 59 16 123/76 (92) 98 05/18/17 11:30 59 16 120/67 (84) 96 05/18/17 11:00 36.5 67 14 128/72 (90) 97 Nasal Cannula 2.0 05/18/17 11:00 97 Nasal Cannula 2.0 05/18/17 11:00 97 Nasal Cannula 2.0 05/18/17 11:00 36.5 67 16 128/72 (90) 97 Nasal Cannula 2.0 05/18/17 10:47 66 16 100 05/18/17 10:47 65 16 05/18/17 10:45 121/65 05/18/17 10:42 59 14 99 05/18/17 10:42 60 14 05/18/17 10:40 121/64 05/18/17 10:37 61 12 05/18/17 10:37 61 12 100 05/18/17 10:35 117/70 05/18/17 10:35 36.6 100 Nasal Cannula 2 05/18/17 10:32 61 12 05/18/17 10:32 61 12 99 05/18/17 10:31 62 16 05/18/17 10:31 63 16 99 05/18/17 10:30 126/69 05/18/17 10:26 61 16 05/18/17 10:26 61 16 99 05/18/17 10:25 126/67 05/18/17 10:21 62 12 05/18/17 10:21 62 12 100 05/18/17 10:20 112/64 05/18/17 10:16 68 12 100 05/18/17 10:16 67 12 05/18/17 10:15 116/64 05/18/17 10:14 61 13 100 05/18/17 10:14 59 13 05/18/17 10:10 123/66 05/18/17 10:09 66 16 100 05/18/17 10:09 65 16 05/18/17 10:06 114/60 05/18/17 10:04 65 20 128/63 100 05/18/17 10:04 66 20 05/18/17 10:04 36.6 69 14 128/63 100 Oxymask 10 Laboratory Results 24 Hours: Test 05/19/17 06:26 Hematocrit 33.3 % Hemoglobin 11.7 g/dL Assessment & Plan Assessment: POD 1 s/p Right TKA Right foot drop Plan: PT/OT Follow foot drop for now. Likely due to intraop injection. AFO brace if not resolving quickly. Planning for HH services upon DC Inhouse Planning Pain Management: Celebrex, Morphine, PO Tylenol, Oxy IR DVT Prophylaxis: TEDs, SCDs, ASA Discharge Planning Discharge Planning: home with home health
[2017-05-19] MEDS: FERROUS GLUCONATE 324 MG TAB PO SCH ×3 (08:46→17:52)
[2017-05-19] MEDS: POLYETHYLENE (MIRALAX) 17 GM PACK PO SCH (08:47)
[2017-05-19] MEDS: ASPIRIN 81 MG ECTAB PO SCH ×2 (08:47→21:03)
[2017-05-19] MEDS: PANTOprazole SOD 40 MG TAB PO SCH (08:47)
[2017-05-19] MEDS: MULTIVITAMIN TAB PO SCH (08:47)
[2017-05-19] MEDS: CeleBREX 200 MG CAP PO SCH ×2 (08:47→21:03)
[2017-05-19 08:49] VITALS: BP 130/70; PULSE 84; TEMP 36.7; O2SAT 100
[2017-05-19] MEDS: LISINOPRIL 5 MG TAB PO SCH (08:52)
[2017-05-19] MEDS ORDERED: MULTIVITAMIN TAB PO SCH (09:00)
[2017-05-19 09:36] VITALS: BP 164/91; PULSE 66; TEMP 36.3
--- NOTE | 2017-05-19 10:56 | Anesthesiology Progress Note ---
Anesthesia Post Op Note Date & Time May 19, 2017 at 10:55 Vital Signs Pain Intensity: 0.0 Vital Signs Past 12 Hours Date Time Temp Pulse Resp B/P (MAP) Pulse Ox O2 Delivery O2 Flow Rate FiO2 05/19/17 09:36 36.3 66 16 164/91 (115) 05/19/17 08:49 36.7 84 16 130/70 (90) 100 Room Air 05/19/17 07:45 Room Air 05/19/17 03:36 36.6 95 17 125/70 (88) 99 Room Air 05/18/17 23:30 94 Room Air 2.0 05/18/17 23:19 36.5 67 15 130/72 (91) 94 Room Air Notes Mental Status: alert / awake / arousable, participated in evaluation Pt Amnestic to Procedure: Yes Nausea / Vomiting: adequately controlled Pain: adequately controlled Airway Patency, RR, SpO2: stable & adequate BP & HR: stable & adequate Hydration State: stable & adequate Neuraxial Anesthesia: sensory block resolved Anesthetic Complications: no major complications apparent
[2017-05-19 12:41] VITALS: BP 152/80; PULSE 70; TEMP 36.3; O2SAT 98
[2017-05-19] MEDS: TRAMADOL HCL 50 MG TAB PO PRN ×2 (13:48→23:47)
[2017-05-19 14:50] VITALS: BP 132/66; PULSE 71; TEMP 36.4; O2SAT 99
[2017-05-19] MEDS: SIMVASTATIN 20 MG TAB PO SCH (21:02)
[2017-05-19] MEDS: DONEPEZIL HCL 10 MG TAB PO SCH (21:02)
[2017-05-19 23:32] VITALS: BP 125/68; PULSE 85; TEMP 36.5; O2SAT 95
[2017-05-20] MEDS: ACETAMINOPHEN 500 MG TAB PO SCH (05:40)
[2017-05-20 06:17] VITALS: BP 108/59; PULSE 65; TEMP 36.7; O2SAT 96
[2017-05-20] MEDS: FERROUS GLUCONATE 324 MG TAB PO SCH (07:16)
[2017-05-20] MEDS: CeleBREX 200 MG CAP PO SCH (07:17)
[2017-05-20] MEDS: ASPIRIN 81 MG ECTAB PO SCH (07:17)
[2017-05-20] MEDS: POLYETHYLENE (MIRALAX) 17 GM PACK PO SCH (07:17)
[2017-05-20] MEDS: MULTIVITAMIN TAB PO SCH (07:18)
[2017-05-20] MEDS: PANTOprazole SOD 40 MG TAB PO SCH (07:18)
[2017-05-20 07:20] VITALS: BP 114/66; PULSE 71
[2017-05-20] MEDS: LISINOPRIL 5 MG TAB PO SCH (07:21)
--- NOTE | 2017-05-20 07:32 | Orthopedic Progress Note ---
Orthopedic Progress Note Date of Service May 20, 2017. Subjective Post OP Day: 2 Reports: feeling well, pain controlled w PO medications, Denies: complaints, chest pain, SOB, nausea / vomiting, light headedness, calf pain Objective calves soft nontender, N/V intact, capillary refill less than 2 sec., dressing C /D/I (silverlon intact), A&O x3, toes mobile foot drop resolved Date Time Temp Pulse Resp B/P (MAP) Pulse Ox O2 Delivery O2 Flow Rate FiO2 05/20/17 07:20 71 114/66 (82) 05/20/17 06:17 36.7 65 15 108/59 (75) 96 Room Air 05/20/17 00:00 Room Air 05/19/17 23:32 36.5 85 16 125/68 (87) 95 Room Air 05/19/17 15:10 Room Air 05/19/17 14:50 36.4 71 16 132/66 (88) 99 Room Air 05/19/17 12:41 36.3 70 13 152/80 (104) 98 Room Air 05/19/17 09:36 36.3 66 16 164/91 (115) 05/19/17 08:49 36.7 84 16 130/70 (90) 100 Room Air 05/19/17 07:45 Room Air Assessment & Plan Assessment: POD 2 s/p Right TKA Right foot drop- resolved Plan: PT/OT Foot drop has resolved will plan on discharge home later today with HHPT Discharge Planning Discharge Planning: home with home health
--- NOTE | 2017-05-20 07:33 | Discharge Instructions ---
Discharge Instructions Date of Service May 20, 2017. Admission Reason for Admission: Right Knee Osteoarthritis Discharge Discharge Diagnosis / Problem: right total knee replacement Discharge Goals Goal(s): Decrease discomfort, Improve function, Increase independence Activity Recommendations Activity Limitations: as noted below Weightbearing Status: Right weightbearing (as tolerated) . Instructions / Follow-Up Instructions / Follow-Up ACTIVITY RECOMMENDATIONS: SELF CARE INSTRUCTIONS AFTER TOTAL KNEE REPLACEMENT A. You may need to continue a physical therapy program after discharge from the hospital. There are several options available to you. Your doctor will assist you in selecting the best one for you. 1. An out-patient facility 2 to 3 times a week for therapy or home therapy. 2. Continue working on all exercises taught to you in the hospital. Your goals should be to increase bending of your knee to 90 degrees and beyond and to fully straighten your knee. B. You may progress at your own pace from walking with a walker or crutches to a cane; then to no assistive devices. C. Make walking a part of your daily routine. Be up as much as comfortable with rest periods throughout the day. Rest with leg elevation is very important. Use the ice wrap frequently for the first 3-4 weeks. D. There are no restrictions on activities. You may ride in a car, shop, participate in fish filleter and all social activities. E. Wear the long elastic stockings (SAMMIE hose) 20 hours a day for 2 weeks after surgery. They can be removed several times a day for laundering and for a bath. F. You may shower, no tub baths until cleared by your doctor. SPECIAL CARE INSTRUCTIONS: VERY IMPORTANT TO READ AND REVIEW A. There are a few signs you need to watch for after you are home. Call [facility] [place] if you notice any of the followin. Increased severe knee pain. Some pain is expected especially when you exercise. 2. Increased swelling in your leg or knee; pain or swelling of the calf muscle in either lower leg. 3. Any fluid drainage from the incision. 4. Shortness of breath or chest pain. B. Please call [facility] at if you have any concerns or questions about your operation or recovery. The doctor or his nurse will return your call promptly. C. You must take antibiotics before dental work, bladder, bowel or other surgery. Your doctor will provide you with a permanent care to carry describing this precaution. IMPORTANT: * REMEMBER TO TAKE ASPIRIN, 81 MG, TWICE DAILY FOR 4 WEEKS UNLESS OTHERWISE DIRECTED. THIS IS YOUR BLOOD THINNER. * HIGH RISK PATIENTS MAY BE PRESCRIBED A STRONGER BLOOD THINNER. THIS WILL BE PROVIDED AT DISCHARGE. * CALL IF INCREASED PAIN, REDNESS, DRAINAGE OR FEVER GREATER THAT 101. * WEAR SAMMIE HOSE 20 HOURS PER DAY FOR 2 WEEKS. * YOU MAY HAVE A LARGE BAND-AID LIKE DRESSING (SILVERON). THIS WILL REMAIN ON YOUR INCISION FOR 7 DAYS, THEN CAN BE REMOVED. IF INCISION IS LEAKING THROUGH DRESSING, CALL THE OFFICE . FOLLOW UP VISIT: If appointment is not already scheduled: Please call [facility] [place] to make a follow-up appointment for 2 weeks after your surgery at . Current Hospital Diet Patient's current hospital diet: Regular Diet Discharge Diet Recommended Diet: Regular Diet Procedures Procedures Performed: Right Total Knee Arthroplasty utilizing Visual Unity non-block journey 2 femur 6 tibia 12 Kira 32 oval patella Pending Studies Studies pending at discharge: no Laboratory Results Hemoglobin A1c Test 03/24/17 16:04 Range/Units Estimated Average Glucose 120 mg/dl Hemoglobin A1c 5.8 H 4.5-5.6 % Medical Emergencies . Who to Call and When: Medical Emergencies: If at any time you feel your situation is an emergency, please call 911 immediately. . Non-Emergent Contact Non-Emergency issues call your: Primary Care Provider, Surgeon . "Provider Documentation" section prepared by Santosh Javier. . [place] Drug Monitoring Program Search Results: patient reviewed within database, no issues identified
[2017-05-20] MEDS ORDERED: CLB200 PO (07:35)
[2017-05-20] MEDS ORDERED: ASPI-320 PO (07:35)
[2017-05-20] MEDS ORDERED: ONDA-170 PO (07:35)
[2017-05-20] MEDS ORDERED: RXC5 PO (07:35)
[2017-05-20] MEDS ORDERED: ACET-24 PO (07:35)
[2017-05-20 09:10] VITALS: BP 114/66; PULSE 71; TEMP 36.7; O2SAT 96
--- NOTE | 2017-05-24 16:11 | DISCHARGE SUMMARY ---
DISCHARGE DIAGNOSIS: Degenerative joint disease, right knee. SECONDARY DIAGNOSES: Borderline diabetic, hypertension, history of peptic ulcer disease, hypercholesterolemia. CONSULTS: None. COMPLICATIONS: None. PROCEDURE: Right total knee arthroplasty performed by Dr. Baez on for 05/18/2017. BRIEF HISTORY: As dictated in the history and physical. HOSPITAL SUMMARY: The patient was admitted on the above-noted date and had the above-noted surgery performed, which he tolerated well. On first postoperative day, he was feeling well and had no complaints. He was stating that he was unable to dorsiflex his operative foot. Calves were soft and nontender. Dressings clean, dry and intact. The patient was currently unable to dorsiflex the foot or great toe on the operative leg. He states he has sensation on dorsum of foot and plantar flexion was strong. Vital signs are stable. He was afebrile and hemoglobin was 11.7. He was started on physical therapy protocol and continued on DVT prophylaxis and pain management. With his right foot drop, it was likely due to intraoperative injection and plans were for AFO brace if it was not resolving. By his second postoperative day, he was feeling well and pain was controlled. He had no complaints. Calves were soft and nontender. Neurovascularly was intact. Dressings clean, dry and intact. Toes are mobile. His footdrop was resolved. Vital signs were stable. He was afebrile. He was progressing with his physical therapy and it was felt he could be discharged to home. For further review, please see chart. LAB AND X-RAY DATA: As per chart. DISCHARGE INSTRUCTIONS: The patient was discharged home in satisfactory condition on 05/20/2017. DIET: Regular. ACTIVITY: Weightbearing as tolerated, right lower extremity. Follow TK instruction sheets and special care instructions as noted. Follow up with Dr. Baez in 2 weeks. The patient to call for appointment if one has not been made for you. DISCHARGE MEDICATIONS: Acetaminophen 1000 mg p.o. q. 8 hours., aspirin 81 mg p.o. b.i.d. and after 30 days resume once daily dosing, Celebrex 200 mg p.o. b.i.d., Zofran 8 mg p.o. q. 8 hours. p.r.n. nausea, oxycodone 5-10 mg p.o. q. 4 hours. p.r.n. Resume home meds as listed. Stop taking the home dosing of acetaminophen. Stop taking ibuprofen and tramadol.
== END 2017-05-20 10:22 | disposition home health service (06) | DRG 470 ==
LOC: C.ACU 06:19 → C.3E 06:45 → ENRESERV 10:34
PROVIDERS: ADMIT Orthopaedic Surgery; ATTEND Orthopaedic Surgery
PROC: 0SRC0J9 Replacement of Right Knee Joint with Synthetic Substitute, Cemented, Open Approach (ICD-10-PCS; principal; 2017-05-18 08:30)
DX: M17.11 Unilateral primary osteoarthritis, right knee (principal); M21.161 Varus deformity, not elsewhere classified, right knee; I25.10 Atherosclerotic heart disease of native coronary artery without angina pectoris; I10 Essential (primary) hypertension; E78.5 Hyperlipidemia, unspecified; F03.90 Unspecified dementia, unspecified severity, without behavioral disturbance, psychotic disturbance, mood disturbance, and anxiety; Z96.652 Presence of left artificial knee joint; Z87.891 Personal history of nicotine dependence; Z79.82 Long term (current) use of aspirin; Z79.899 Other long term (current) drug therapy

== ENCOUNTER → 2017-06-28 | Outpatient (CLI) | payer OTHER ==
[~2017-06-28] MED LIST changes: -ACETAMINOPHEN 500 MG TAB PO SCH; +ASPI-320 PO; -ASPI81TA28 PO; -CEFAZOLIN 1000MG IV PUSH 7.5 ML IV SCH; -CeleBREX 200 MG CAP PO SCH; -DEXAMETHASONE 4 MG TAB PO SCH; -FAMOTIDINE 20 MG TAB PO SCH; -GABAPENTIN 300 MG CAP PO SCH; -IBUP600T44 PO; -LACTATED RINGER'S 1000ML 500 ML IV SCH; -METOCLOPRAMIDE HCL 10 MG TAB PO SCH; +ONDA-170 PO; -ROPIVACAINE 5MG/ML 30 ML 150 MG, BUPIVACAINE 0.5% MPF INJ 30 ML, EpINEphrine HCL INJ 0.... INFIL SCH; +RXC5 PO; -TRAM-10 PO
[2017-06-28 17:03] LABS: BASO % 0.5 %; BASO ABS # 0.03 K/uL (0-0.2); EOS % 1.5 %; EOS ABS # 0.09 K/uL (0-0.5); HEMATOCRIT 38.5 % (42-52); HEMOGLOBIN 12.3 g/dL (14.0-18.0); IG# 0.02 K/uL (0.00-0.02); LYMPH % 18.8 %; LYMPH ABS # 1.11 K/uL (1.2-3.4); MEAN CELL VOLUME 90.4 fL (80-100); MEAN CORPUSCULAR HEMOGLOBIN 28.9 pg (25-34); MEAN CORPUSCULAR HGB CONC 31.9 g/dl (32-36); MEAN PLATELET VOLUME 10.8 fL (7.4-10.4); MONO % 5.2 %; MONO ABS # 0.31 K/uL (0.11-0.59); NEUT % 73.7 %; NEUT ABS # 4.35 K/uL (1.4-6.5); PLATELET COUNT 226 K/uL (130-400); RED CELL DISTRIBUTION WIDTH CV 14.3 % (11.5-14.5); RED CELL DISTRIBUTION WIDTH SD 46.8 fL (36.4-46.3); WHITE BLOOD COUNT 5.91 K/uL (4.8-10.8)
== END | disposition home or self-care (01) ==
LOC: C.LABPBG 11:38
PROVIDERS: ATTEND Family Medicine
DX: R53.83 Other fatigue (principal); R68.89 Other general symptoms and signs

== ENCOUNTER → 2017-09-28 | Outpatient (CLI) | payer OTHER ==
--- NOTE | 2017-09-28 16:24 | DIAGNOSTIC IMAGING REPORT ---
LUMBAR SPINE RADIOGRAPHS CLINICAL HISTORY: Acute back pain. COMPARISON: CT of the abdomen and pelvis October 18, 2009. FINDINGS: There are 5 lumbar type vertebra. Vertebral body heights are maintained there is no fracture or suspicious lesion. Mild multilevel disc space narrowing is noted with moderate anterior osteophytosis. There is moderate multilevel facet arthrosis. There are cholecystectomy clips. Scattered soft tissue calcifications are chronic. There may be partial ankylosis of the bilateral sacroiliac joints. IMPRESSION: 1. No acute lumbar spine fracture or subluxation. 2. Moderate multilevel degenerative disc disease and facet arthrosis of the lumbar spine. 3. 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 Electronically signed by: Magdiel Saucedo M.D. 09/28/2017 4:22 PM Dictated Date/Time: 09/28/2017 4:21 PM
== END | disposition home or self-care (01) ==
LOC: C.RAD1850 16:09
PROVIDERS: ATTEND Family Medicine
DX: M54.5 Low back pain (principal); M51.36 Other intervertebral disc degeneration, lumbar region; M43.28 Fusion of spine, sacral and sacrococcygeal region

== ENCOUNTER 2023-12-05 11:25 | Inpatient (IN) ==
--- NOTE | 2023-12-05 11:52 | XRay Report ---
SINGLE VIEW CHEST CLINICAL HISTORY: Atypical chest pain FINDINGS: An AP, portable, upright chest radiograph is compared to study dated 08/16/2014. The heart is mildly enlarged. The pulmonary vasculature is noncongested. Chronic interstitial thickening is simil ar to previous. The lungs and pleural spaces are clear. No pneumothorax is seen. The skeletal structu res are osteopenic. The bony thorax is grossly intact. Postsurgical changes seen in the left shoulder . Surgical clips project over the left lower neck. IMPRESSION: No active disease in the chest. ACT 112: Negative or not required by law. Electronically signed by: Geovany Patel M.D. 12/05/2023 11:50 AM
[2023-12-05 11:56] LABS: Basophils # (auto) 0.03 K/uL (0.00-0.20); Basophils % (auto) 0.3 %; Eosinophils # (auto) 0.04 K/uL (0.00-0.50); Eosinophils % (auto) 0.4 %; Hematocrit (blood only) 41.1 % (42.0-52.0); Hemoglobin 14.4 g/dl (14.0-18.0); Immature Granulocytes # (auto) 0.03 K/uL (0.01-0.20); Immature Granulocytes % (auto) 0.3 %; Lymphocytes # (auto) 1.17 K/uL (1.20-3.40); Lymphocytes % (auto) 10.7 %; Mean Corpuscular Hemoglobin 32.7 pg (25.0-34.0); Mean Corpuscular Volume 93.2 fL (80.0-100.0); Mean Platelet Volume 9.9 fL (9.4-12.4); Monocytes # (auto) 0.55 K/uL (0.11-0.59); Neutrophils # (auto) 9.08 K/uL (1.40-6.50); Neutrophils % (auto) 83.3 %; Platelet Count 222 K/uL (130-400); RDW Coefficient of Variation 12.9 % (11.5-14.5); RDW Standard Deviation 44.2 fL (36.4-46.3); Red Blood Count 4.41 M/uL (4.70-6.10)
[2023-12-05 11:56] LABS: iSTAT Hemoglobin 13.9 g/dl (14.0-18.0); iSTAT Ionized Calcium 1.29 mmol/l (1.12-1.32); iSTAT Potassium 4.3 mmol/L (3.3-5.0)
[2023-12-05] MEDS: OPTIRAY 320 125ml IV ONE (12:07)
[2023-12-05 12:15] LABS: Anion Gap 4 (3-11); BUN Creatinine Ratio 22.2 (10-20); Blood Urea Nitrogen 20 mg/dl (6-23); Calcium 9.6 mg/dl (8.6-10.3); Carbon Dioxide 29 mmol/L (21-32); Chloride 104 mmol/L (98-107); Glucose 120 mg/dl (70-99(Fasting)); Lipase 17 U/L (11-82); Magnesium 1.8 mg/dl (1.7-2.4); Potassium 4.2 mmol/L (3.5-5.1); Sodium 137 mmol/L (136-145)
--- NOTE | 2023-12-05 12:18 | Electrocardiogram Report ---
Test Reason : Blood Pressure : */* mmHG Vent. Rate : 59 BPM Atrial Rate : 59 BPM P-R Int : 210 ms QRS Dur : 84 ms QT Int : 440 ms P-R-T Axes : 14 -29 103 degrees QTcB Int : 435 ms Sinus bradycardia with 1st degree A-V block Abnormal ECG When compared with ECG of 17-Oct-2017 12:37, QRS axis Shifted left Confirmed by Kristopher Lutz ([id number]) on 12/05/2023 12:18:38 PM Referred By: Confirmed By: Kristopher Lutz
[2023-12-05 12:20] LABS: Troponin I High Sensitivity 4.8 pg/ml (0-20)
--- NOTE | 2023-12-05 12:20 | CT Scan Report ---
CT SCAN OF THE BRAIN WITHOUT IV CONTRAST CLINICAL HISTORY: Syncope COMPARISON STUDY: CT of the brain dated 10/27/2017. TECHNIQUE: Unenhanced axial CT scan of the brain is performed from the vertex to the skull base. A do se lowering technique was utilized adhering to the principles of ALARA. FINDINGS: Brain parenchyma: There is age-related involutional change noting moderate subcortical and periventri cular microangiopathic disease. There is no hemorrhage, mass effect, or evidence of acute territorial ischemia by CT criteria. Jordan-white matter differentiation is preserved. No extra-axial fluid collec tion is seen. Ventricles, sulci, cisterns: Prominent secondary to involutional change. Intracranial vasculature: There is atherosclerotic calcification of the cavernous carotid arteries. Calvarium: Unremarkable. Sinuses and mastoids: The visualized paranasal sinuses are clear. The mastoid air cells are well pneu matized. Orbits: The bony orbits are grossly intact. IMPRESSION: There is no hemorrhage, mass effect, or evidence of acute territorial ischemia by CT carroll dunn. ACT 112: Negative or not required by law. Electronically signed by: Geovany Patel M.D. 12/05/2023 12:18 PM
[2023-12-05 12:25] LABS: Partial Thromboplastin Ratio 0.9; Partial Thromboplastin Time 24 Seconds (21-31); Prothrombin Time 11.3 Seconds (9.0-12.0)
[2023-12-05] MEDS: ASPIRIN CHEW 324 MG PO STA (12:26)
--- NOTE | 2023-12-05 13:28 | Emergency Department Note ---
History of Present Illness General Chief complaint: Syncope Stated complaint: SYNCOPE Time Seen by Provider: 12/05/23 11:29 Source: family (Daughter at bedside) History of Present Illness Provider complaint: Syncope 78-year-old male presents emergency department for syncope. Reportedly the patient was at [employer] with his when he started having abdominal pain and then had a syncopal episode. Patient is dementia and is unable to get a clear history. Daughter at bedside reported that the patient was not having chest pain or headache but she states that she was not there when this occurred. Home Medications Medication Instructions Recorded Confirmed Type acetaminophen 500 mg tablet 1,000 mg PO Q8H PRN Pain 10/17/17 12/05/23 History (Tylenol Extra Strength) aspirin 81 mg tablet,delayed 81 mg PO DAILY 10/17/17 12/05/23 History release cholecalciferol (vitamin D3) 25 1,000 units PO DAILY 10/17/17 12/05/23 History mcg (1,000 unit) tablet (Vitamin D3) lisinopril 5 mg tablet 5 mg PO DAILY 10/17/17 12/05/23 History multivitamin 1 tab PO DAILY 10/17/17 12/05/23 History simvastatin 20 mg tablet 20 mg PO HS 10/17/17 12/05/23 History omeprazole 40 mg capsule,delayed 40 mg PO BID 04/30/21 12/05/23 History release sertraline 25 mg tablet 25 mg PO PM 04/30/21 12/05/23 History donepezil 10 mg tablet 10 mg PO BID #180 tabs 07/06/23 12/05/23 Rx glipizide 2.5 mg tablet, extended 2.5 mg PO HS 12/05/23 12/05/23 History release 24 hr Allergies Allergy/AdvReac Type Severity Reaction Status Date / Time No Known Allergies Allergy Verified 04/08/20 10:24 Past Med/Surg History Problem List (Updated 12/05/23 @ 16:21 by Christos Foreman MD) Ischemic heart disease due to coronary artery obstruction Syncope V-tach (Acute) Syncope (Acute) 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) Idiopathic peripheral neuropathy (Acute) Small vessel disease, cerebrovascular (Acute) History of knee replacement procedure of left knee History of knee replacement procedure of right knee High blood pressure (Chronic) Abdominal pain (Acute) Left knee DJD Right knee DJD Medical History Hyperlipidemia Mixed Alzheimer's and vascular dementia Diabetes Dementia Hypertension Inguinal hernia Diabetes Actinic keratosis Surgical History H/O right inguinal hernia repair Hx of cholecystectomy Family History Brother Diabetes Hypertension Sister Diabetes Hypertension Other No pertinent family history Social History Smoking Status: Never smoker Feels Safe at Home: Yes Physical Exam Vital Signs Vital Signs - 24 hr 12/05/23 11:30 12/05/23 11:30 12/05/23 11:30 Temperature 36.5 C Temperature Source Axillary Pulse Rate 59 L Pulse Rate [Apical] 61 Pulse Rate from SpO2 Sensor Respiratory Rate 20 20 Respiratory Effort / Characteristics Non-Labored Non-Labored Respiratory Depth Normal Normal Blood Pressure 139/67 Blood Pressure [Right Arm] 139/67 Blood Pressure Mean 91 Blood Pressure Mean [Right Arm] 91 Pulse Oximetry 98 98 Oxygen Delivery Method Room Air Room Air Room Air Sepsis Recent Fever Within 48 Hours No Sepsis New/Unexplained Change in Mental Status No Sepsis Action Taken by Nursing No Action Required 12/05/23 11:30 12/05/23 11:31 12/05/23 11:33 Temperature Temperature Source Pulse Rate 57 L Pulse Rate [Apical] Pulse Rate from SpO2 Sensor Respiratory Rate 14 Respiratory Effort / Characteristics Respiratory Depth Blood Pressure 139/67 Blood Pressure [Right Arm] Blood Pressure Mean 84 Blood Pressure Mean [Right Arm] Pulse Oximetry 98 Oxygen Delivery Method Room Air Sepsis Recent Fever Within 48 Hours Sepsis New/Unexplained Change in Mental Status Sepsis Action Taken by Nursing 12/05/23 12:03 12/05/23 12:03 12/05/23 12:06 Temperature Temperature Source Pulse Rate 74 68 Pulse Rate [Apical] Pulse Rate from SpO2 Sensor Respiratory Rate 22 Respiratory Effort / Characteristics Respiratory Depth Blood Pressure 140/83 Blood Pressure [Right Arm] Blood Pressure Mean 95 Blood Pressure Mean [Right Arm] Pulse Oximetry Oxygen Delivery Method Sepsis Recent Fever Within 48 Hours Sepsis New/Unexplained Change in Mental Status Sepsis Action Taken by Nursing 12/05/23 12:16 12/05/23 12:16 12/05/23 12:16 Temperature Temperature Source Pulse Rate Pulse Rate [Apical] 61 Pulse Rate from SpO2 Sensor Respiratory Rate 20 Respiratory Effort / Characteristics Non-Labored Respiratory Depth Normal Blood Pressure Blood Pressure [Right Arm] 139/67 Blood Pressure Mean Blood Pressure Mean [Right Arm] 91 Pulse Oximetry 98 98 98 Oxygen Delivery Method Room Air Room Air Room Air Sepsis Recent Fever Within 48 Hours Sepsis New/Unexplained Change in Mental Status Sepsis Action Taken by Nursing 12/05/23 12:30 12/05/23 12:30 12/05/23 13:00 Temperature Temperature Source Pulse Rate 57 L Pulse Rate [Apical] Pulse Rate from SpO2 Sensor 56 L Respiratory Rate 15 Respiratory Effort / Characteristics Respiratory Depth Blood Pressure 116/66 121/67 Blood Pressure [Right Arm] Blood Pressure Mean 87 85 Blood Pressure Mean [Right Arm] Pulse Oximetry 90 Oxygen Delivery Method Sepsis Recent Fever Within 48 Hours Sepsis New/Unexplained Change in Mental Status Sepsis Action Taken by Nursing 12/05/23 13:00 12/05/23 13:27 12/05/23 13:30 Temperature Temperature Source Pulse Rate 56 L 57 L Pulse Rate [Apical] Pulse Rate from SpO2 Sensor 56 L 57 L Respiratory Rate 16 13 Respiratory Effort / Characteristics Respiratory Depth Blood Pressure 115/68 Blood Pressure [Right Arm] Blood Pressure Mean 85 Blood Pressure Mean [Right Arm] Pulse Oximetry 99 99 Oxygen Delivery Method Sepsis Recent Fever Within 48 Hours Sepsis New/Unexplained Change in Mental Status Sepsis Action Taken by Nursing 12/05/23 13:45 12/05/23 13:57 12/05/23 14:00 Temperature Temperature Source Pulse Rate 56 L 55 L Pulse Rate [Apical] Pulse Rate from SpO2 Sensor 56 L 55 L Respiratory Rate 14 17 Respiratory Effort / Characteristics Respiratory Depth Blood Pressure 132/75 Blood Pressure [Right Arm] Blood Pressure Mean 85 Blood Pressure Mean [Right Arm] Pulse Oximetry 96 96 Oxygen Delivery Method Sepsis Recent Fever Within 48 Hours Sepsis New/Unexplained Change in Mental Status Sepsis Action Taken by Nursing 12/05/23 14:09 12/05/23 15:56 Temperature Temperature Source Pulse Rate 56 L 57 L Pulse Rate [Apical] Pulse Rate from SpO2 Sensor 57 L Respiratory Rate 16 20 Respiratory Effort / Characteristics Respiratory Depth Blood Pressure 150/82 H Blood Pressure [Right Arm] Blood Pressure Mean Blood Pressure Mean [Right Arm] Pulse Oximetry 98 100 Oxygen Delivery Method Room Air Sepsis Recent Fever Within 48 Hours Sepsis New/Unexplained Change in Mental Status Sepsis Action Taken by Nursing Physical Exam GENERAL: oriented to person, place, and time. appears well-developed and well- nourished. HENT: Exam performed. - Head: Normocephalic and atraumatic. EYES: Conjunctivae and EOM are normal. Right eye exhibits no discharge. Left eye exhibits no discharge. No scleral icterus. NECK: Normal range of motion. Neck supple. No JVD present. CV: Normal rate, regular rhythm, normal heart sounds and intact distal pulses. There is no peripheral edema. Palpable radial pulses bue. PULM/CHEST: Effort normal and breath sounds normal. No respiratory distress. No stridor. no wheezes. no rales. ABD: The abdomen is soft. There is no tenderness. NEURO: Motor and sensation grossly intact. SKIN: Skin is warm and dry. He is not diaphoretic. PSYCH: normal mood and affect. Behavior is normal. Judgment and thought content normal. Course Course 1129: The patient was evaluated in room A12. A complete history and physical exam was performed Cardiac monitoring: An order was placed for continuous cardiac monitoring. The monitor shows a rate of 60 with sinus rhythm interpreted by me While in the room evaluating the patient the patient had a 4 beat run of V. tach. Patient was asymptomatic. 1343: Vital signs stable. Patient very pleasantly sitting in the room. No reported chest pain. Patient is demented and unable to give an accurate history though. CT of the head negative. CT of the chest viewed by me shows no dissection. Labs within normal limits. Repeat EKG looks same as previous 2 EKGs done in the emergency department. Discussed the patient's EKGs with on- call interventional cardiology Dr. Foreman. He reviewed the patient's EKGs and agreed that the EKGs are borderline. He recommends getting a high-sensitivity troponin and then to contact him back. 1355: CTA chest abdomen pelvis negative. 1436: Vital signs stable. Delta troponin negative. Discussed case with Dr. Cardoza again and he states given the intermittent V. tach he wants to conduct a cardiac catheterization on the patient. He recommends admitting the patient to medicine and states he will plan on doing a cardiac catheterization around 1600 today. No heart alert activation at this time though, will be a planned catheterization. Family and patient were made aware and family is in agreement. Hospitalist Dr. Donohue was also made aware and in agreement with the plan. Cardiology states no heparin at this time. Administered Medications Discontinued Medications Aspirin (Aspirin Chew 324 Mg) 324 mg PO NOW STA Stop: 12/05/23 11:37 Last Admin: 12/05/23 12:26 Dose: 324 mg Documented By: MONIKA Ioversol (Optiray 320 125ml) 119 ml IV ONCE ONE Stop: 12/05/23 12:08 Last Admin: 12/05/23 12:07 Dose: 119 ml Documented By: LOPEZ Medical Decision Making Laboratory Data Attestation: I reviewed the patient's lab results. 12/05/23 11:43 12/05/23 11:43 Lab Results 12/05/23 12/05/23 12/05/23 Range/Units 11:43 11:44 13:45 WBC 10.90 H (4.8-10.8) K/ul RBC 4.41 L (4.70-6.10) M/uL Hgb 14.4 (14.0-18.0) g/dl POC Hgb 13.9 L (14.0-18.0) g/dl Hct 41.1 L (42.0-52.0) % POC Hct 41 L (42-52) % MCV 93.2 (80.0-100.0) fL MCH 32.7 (25.0-34.0) pg MCHC 35.0 (32.0-36.0) g/dL RDW Std Deviation 44.2 (36.4-46.3) fL RDW Coeff of Aruna 12.9 (11.5-14.5) % Plt Count 222 (130-400) K/uL MPV 9.9 (9.4-12.4) fL Immature Gran % (Auto) 0.3 % Neut % (Auto) 83.3 % Lymph % (Auto) 10.7 % [place] % (Auto) 5.0 % Eos % (Auto) 0.4 % Baso % (Auto) 0.3 % Neut # (Auto) 9.08 H (1.40-6.50) K/uL Lymph # (Auto) 1.17 L (1.20-3.40) K/uL [place] # (Auto) 0.55 (0.11-0.59) K/uL Eos # (Auto) 0.04 (0.00-0.50) K/uL Baso # (Auto) 0.03 (0.00-0.20) K/uL Immature Gran # (Auto) 0.03 (0.01-0.20) K/uL PT 11.3 (9.0-12.0) Seconds INR 1.0 (0.9-1.1) APTT 24 (21-31) Seconds PTT Ratio 0.9 POC Sodium 140 (135-144) mmol/L Sodium 137 (136-145) mmol/L POC Potassium 4.3 (3.3-5.0) mmol/L Potassium 4.2 (3.5-5.1) mmol/L POC Chloride 101 (101-112) mmol/L Chloride 104 (98-107) mmol/L Carbon Dioxide 29 (21-32) mmol/L POC Total CO2 25 (24-31) mmol/L Anion Gap 4 (3-11) POC Anion Gap 19.0 (16-25) mmol/L POC BUN 20 H (7-18) mg/dl BUN 20 (6-23) mg/dl Creatinine 0.90 (0.6-1.4) mg/dl POC Creatinine 1.0 (0.6-1.3) mg/dl Est Cr Clr Drug Dosing Not Reportable eGFR 86.34 BUN/Creatinine Ratio 22.2 H (10-20) Glucose 120 H (70-99(Fasting)) mg/dl POC Glucose (other) 124 H (70-99) mg/dl Calcium 9.6 (8.6-10.3) mg/dl POC Ioniz Calcium Maria Eugenia 1.29 (1.12-1.32) mmol/l Magnesium 1.8 (1.7-2.4) mg/dl Troponin I High Sens 4.8 5.0 (0-20) pg/ml Lipase 17 (11-82) U/L Imaging Data Attestation: I personally reviewed and interpreted this imaging study as follows: My Impression: Chest x-ray negative. Airway clear. No pneumothorax. No consolidation. No cardiomegaly or cephalization.. No free air under the diaphragm. No fractures of the skeletal structures. CT head: No ICH CTA chest: No dissection Radiologist's Impression: Chest X-Ray 12/05/23 11:36 SINGLE VIEW CHEST CLINICAL HISTORY: Atypical chest pain FINDINGS: An AP, portable, upright chest radiograph is compared to study dated 08/16/2014. The heart is mildly enlarged. The pulmonary vasculature is noncongested. Chronic interstitial thickening is similar to previous. The lungs and pleural spaces are clear. No pneumothorax is seen. The skeletal structures are osteopenic. The bony thorax is grossly intact. Postsurgical changes seen in the left shoulder. Surgical clips project over the left lower neck. IMPRESSION: No active disease in the chest. ACT 112: Negative or not required by law. Electronically signed by: Geovany Patel M.D. 12/05/2023 11:50 AM Abdomen/Pelvis CTA 12/05/23 11:39 CT ANGIOGRAM OF THE CHEST COMBO; CT angiogram of the abdomen AND PELVIS CLINICAL HISTORY: Syncope. Epigastric abdominal pain. COMPARISON STUDY: Chest x-ray dated 12/05/2023. Abdominal CT dated 10/18/2009. TECHNIQUE: Unenhanced CT scan of the chest was performed. Subsequently, following the IV administration of 119 cc of Optiray 320, CT angiogram of the chest, abdomen, and pelvis was performed from the thoracic inlet to the proximal femora. Images are reviewed in the axial, sagittal, and coronal planes. 3-D MIPS images are created and assessed. IV contrast was administered without complication. A dose lowering technique was utilized adhering to the principles of ALARA. The examinations are degraded by streak artifact from the arms which could not be elevated above the chest or abdomen. CT DOSE: 2867.96 mGy.cm FINDINGS: CHEST: Thyroid: Imaged portions of the thyroid gland are normal in size and attenuation. Surgical clips are seen above the left thyroid lobe. Thoracic aorta: No intramural hematoma is seen on the unenhanced series. The thoracic aorta is normal in course and caliber. The aortic arch demonstrates standard 3-vessel anatomy. No dissection is seen. The arch vessels are widely patent. Pulmonary vasculature: The pulmonary trunk is normal in caliber. There are no filling defects identified in the main, lobar, or segmental pulmonary arteries to indicate pulmonary embolus. Heart: The heart is enlarged and without pericardial effusion. The coronary arteries are densely calcified. Lungs and pleural spaces: There is no airspace consolidation or pleural effusion. Mild subpleural reticulation is seen throughout both lungs with bibasilar scarring/atelectasis. The trachea and central airways are clear. There are scattered calcified granulomas. Mediastinum: There is no mediastinal lymphadenopathy. Tenisha: Mildly enlarged hilar nodes measure up to 14 mm short axis. These may be related to chronic lung disease. Axillae: There is no axillary lymphadenopathy. Bony thorax: The skeletal structures are osteopenic. Degenerative change and mild hyperkyphosis is noted in the thoracic spine. No lytic or blastic bony lesions are identified. Arthritic change is noted in the shoulders with postsurgical change seen on the left. ABDOMEN AND PELVIS: Liver: The contrast-enhanced liver is normal in size, contour, and attenuation. There is no intrahepatic biliary ductal dilatation. The main portal veins appear patent. Gallbladder: Surgically absent noting clips in the gallbladder fossa. Spleen: Normal in size and attenuation noting heterogeneous arterial phase enhancement. Pancreas: Moderately atrophic and grossly unremarkable. Adrenal glands: Unremarkable. Kidneys: The contrast enhanced kidneys demonstrate mild cortical atrophy and are without hydronephrosis. Renal sinus cysts are seen on the left. The kidneys enhance symmetrically. Abdominal aorta and iliac arteries: The abdominal aorta is normal in course and caliber noting moderate atherosclerotic calcification. No dissection is seen. The iliac arteries are widely patent bilaterally. 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 There is focal curvature of the celiac trunk and this may represent median arcuate ligament syndrome. This measures up to 1.3 cm in diameter. The superior mesenteric and inferior mesenteric arteries are widely patent. Hepatic arterial anatomy is conventional. The splenic artery is patent. 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 There are 2 left renal arteries and 3 right renal arteries. The renal arteries are patent bilaterally. Bowel: There is advanced colonic diverticulosis without CT evidence of acute diverticulitis. No bowel obstruction is seen. Moderate fecal retention is noted throughout the colon. The appendix is well-visualized and normal. Peritoneum: There is no intraperitoneal free air or abdominal ascites. There is a small fat-containing umbilical hernia. A 3 cm focus of fat necrosis is suggested in the right ventral abdominal wall. Lymphadenopathy: None. Pelvic viscera: The prostate gland is mildly enlarged and heterogeneous. The bladder wall appears thickened/trabeculated indicating chronic outlet obstruction. A 2.3 cm hutch diverticulum is seen on the right. There is evidence of previous right inguinal herniorrhaphy. Skeletal structures: The skeletal structures are osteopenic. There is moderate to advanced lumbosacral spondylosis. Degenerative sclerosis is noted in the sacroiliac joints. No lytic or blastic Lesions are seen. IMPRESSION: 1. Unremarkable CT angiogram of the thoracic aorta. 2. There is no evidence of pulmonary embolus in the main, lobar, or segmental pulmonary arteries. 3. Cardiomegaly. 4. There is no airspace consolidation or pleural effusion. 5. There is high-grade focal stenosis at the origin of the celiac trunk with poststenotic dilatation. The configuration suggests median arcuate ligament syndrome. 6. Otherwise unremarkable CT angiogram of the abdominal aorta and its major branches. 7. Advanced colonic diverticulosis without CT evidence of acute diverticulitis. 8. Additional findings as above. ACT 112: Negative or not required by law. Electronically signed by: Geovany Patel M.D. 12/05/2023 1:41 PM Chest CTA 12/05/23 11:39 CT ANGIOGRAM OF THE CHEST COMBO; CT angiogram of the abdomen AND PELVIS CLINICAL HISTORY: Syncope. Epigastric abdominal pain. COMPARISON STUDY: Chest x-ray dated 12/05/2023. Abdominal CT dated 10/18/2009. TECHNIQUE: Unenhanced CT scan of the chest was performed. Subsequently, following the IV administration of 119 cc of Optiray 320, CT angiogram of the chest, abdomen, and pelvis was performed from the thoracic inlet to the proximal femora. Images are reviewed in the axial, sagittal, and coronal planes. 3-D MIPS images are created and assessed. IV contrast was administered without complication. A dose lowering technique was utilized adhering to the principles of ALARA. The examinations are degraded by streak artifact from the arms which could not be elevated above the chest or abdomen. CT DOSE: 2867.96 mGy.cm FINDINGS: CHEST: Thyroid: Imaged portions of the thyroid gland are normal in size and attenuation. Surgical clips are seen above the left thyroid lobe. Thoracic aorta: No intramural hematoma is seen on the unenhanced series. The thoracic aorta is normal in course and caliber. The aortic arch demonstrates standard 3-vessel anatomy. No dissection is seen. The arch vessels are widely patent. Pulmonary vasculature: The pulmonary trunk is normal in caliber. There are no filling defects identified in the main, lobar, or segmental pulmonary arteries to indicate pulmonary embolus. Heart: The heart is enlarged and without pericardial effusion. The coronary arteries are densely calcified. Lungs and pleural spaces: There is no airspace consolidation or pleural effusion. Mild subpleural reticulation is seen throughout both lungs with bibasilar scarring/atelectasis. The trachea and central airways are clear. There are scattered calcified granulomas. Mediastinum: There is no mediastinal lymphadenopathy. Tenisha: Mildly enlarged hilar nodes measure up to 14 mm short axis. These may be related to chronic lung disease. Axillae: There is no axillary lymphadenopathy. Bony thorax: The skeletal structures are osteopenic. Degenerative change and mild hyperkyphosis is noted in the thoracic spine. No lytic or blastic bony lesions are identified. Arthritic change is noted in the shoulders with postsurgical change seen on the left. ABDOMEN AND PELVIS: Liver: The contrast-enhanced liver is normal in size, contour, and attenuation. There is no intrahepatic biliary ductal dilatation. The main portal veins appear patent. Gallbladder: Surgically absent noting clips in the gallbladder fossa. Spleen: Normal in size and attenuation noting heterogeneous arterial phase enhancement. Pancreas: Moderately atrophic and grossly unremarkable. Adrenal glands: Unremarkable. Kidneys: The contrast enhanced kidneys demonstrate mild cortical atrophy and are without hydronephrosis. Renal sinus cysts are seen on the left. The kidneys enhance symmetrically. Abdominal aorta and iliac arteries: The abdominal aorta is normal in course and caliber noting moderate atherosclerotic calcification. No dissection is seen. The iliac arteries are widely patent bilaterally. 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 There is focal curvature of the celiac trunk and this may represent median arcuate ligament syndrome. This measures up to 1.3 cm in diameter. The superior mesenteric and inferior mesenteric arteries are widely patent. Hepatic arterial anatomy is conventional. The splenic artery is patent. 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 There are 2 left renal arteries and 3 right renal arteries. The renal arteries are patent bilaterally. Bowel: There is advanced colonic diverticulosis without CT evidence of acute diverticulitis. No bowel obstruction is seen. Moderate fecal retention is noted throughout the colon. The appendix is well-visualized and normal. Peritoneum: There is no intraperitoneal free air or abdominal ascites. There is a small fat-containing umbilical hernia. A 3 cm focus of fat necrosis is suggested in the right ventral abdominal wall. Lymphadenopathy: None. Pelvic viscera: The prostate gland is mildly enlarged and heterogeneous. The bladder wall appears thickened/trabeculated indicating chronic outlet obstruction. A 2.3 cm hutch diverticulum is seen on the right. There is evidence of previous right inguinal herniorrhaphy. Skeletal structures: The skeletal structures are osteopenic. There is moderate to advanced lumbosacral spondylosis. Degenerative sclerosis is noted in the sacroiliac joints. No lytic or blastic Lesions are seen. IMPRESSION: 1. Unremarkable CT angiogram of the thoracic aorta. 2. There is no evidence of pulmonary embolus in the main, lobar, or segmental pulmonary arteries. 3. Cardiomegaly. 4. There is no airspace consolidation or pleural effusion. 5. There is high-grade focal stenosis at the origin of the celiac trunk with poststenotic dilatation. The configuration suggests median arcuate ligament syndrome. 6. Otherwise unremarkable CT angiogram of the abdominal aorta and its major branches. 7. Advanced colonic diverticulosis without CT evidence of acute diverticulitis. 8. Additional findings as above. ACT 112: Negative or not required by law. Electronically signed by: Geovany Patel M.D. 12/05/2023 1:[address] 12/05/23 11:39 CT SCAN OF THE BRAIN WITHOUT IV CONTRAST CLINICAL HISTORY: Syncope COMPARISON STUDY: CT of the brain dated 10/27/2017. TECHNIQUE: Unenhanced axial CT scan of the brain is performed from the vertex to the skull base. A dose lowering technique was utilized adhering to the principles of ALARA. FINDINGS: Brain parenchyma: There is age-related involutional change noting moderate subcortical and periventricular microangiopathic disease. There is no hemorrhage, mass effect, or evidence of acute territorial ischemia by CT criteria. Jordan-white matter differentiation is preserved. No extra-axial fluid collection is seen. Ventricles, sulci, cisterns: Prominent secondary to involutional change. Intracranial vasculature: There is atherosclerotic calcification of the cavernous carotid arteries. Calvarium: Unremarkable. Sinuses and mastoids: The visualized paranasal sinuses are clear. The mastoid air cells are well pneumatized. Orbits: The bony orbits are grossly intact. IMPRESSION: There is no hemorrhage, mass effect, or evidence of acute territorial ischemia by CT criteria. ACT 112: Negative or not required by law. Electronically signed by: Geovany Patel M.D. 12/05/2023 12:18 PM ECG Data Attestation: I personally reviewed and interpreted this ECG as follows: Additional Comments: EKG #1 at 1132: Sinus rhythm with rate of 59. WI 210 QRS [address] elevation or ST depression. T wave inversions in lead I and aVL. Biphasic T wave in lead V2. First-degree AV block present. EKG #2 at 1138: Sinus rhythm with rate of 54. WI 212 QRS 84 QTc 424. No significant change from the EKG done earlier. EKG #3 at 1138: Sinus rhythm with rate of 54. WI 212 QRS 84 QTc 424. No significant change from the EKG earlier today. MDM Narrative 1129: The patient was evaluated in room A12. A complete history and physical exam was performed Cardiac monitoring: An order was placed for continuous cardiac monitoring. The monitor shows a rate of 60 with sinus rhythm interpreted by me While in the room evaluating the patient the patient had a 4 beat run of V. tach. Patient was asymptomatic. 1343: Vital signs stable. Patient very pleasantly sitting in the room. No reported chest pain. Patient is demented and unable to give an accurate history though. CT of the head negative. CT of the chest viewed by me shows no dissection. Labs within normal limits. Repeat EKG looks same as previous 2 EKGs done in the emergency department. Discussed the patient's EKGs with on- call interventional cardiology Dr. Foreman. He reviewed the patient's EKGs and agreed that the EKGs are borderline. He recommends getting a high-sensitivity troponin and then to contact him back. 1355: CTA chest abdomen pelvis negative. 1436: Vital signs stable. Delta troponin negative. Discussed case with Dr. Cardoza again and he states given the intermittent V. tach he wants to conduct a cardiac catheterization on the patient. He recommends admitting the patient to medicine and states he will plan on doing a cardiac catheterization around 1600 today. No heart alert activation at this time though, will be a planned catheterization. Family and patient were made aware and family is in agreement. Hospitalist Dr. Donohue was also made aware and in agreement with the plan. Cardiology states no heparin at this time. Impression & Plan Syncope, V-tach Discharge Plan Visit Data Chief Complaint: Syncope Stated Complaint: SYNCOPE ED Provider: Gerald Parmar Discharge Problem: Syncope, V-tach Patient Disposition: Admitted As Inpatient Discharge Instructions Interventions: ED Discharge Assessment Last Done: 12/05/23 15:56 Forms Stand Alone Forms: My [facility] [employer] Prescriptions Prescriptions: No Action donepezil 10 mg tablet 10 mg PO BID Qty: 180 3RF sertraline 25 mg tablet 25 mg PO PM multivitamin Tablet 1 tab PO DAILY aspirin 81 mg Tablet,Delayed Release (Dr/Ec) 81 mg PO DAILY acetaminophen [Tylenol Extra Strength] 500 mg Tablet 1,000 mg PO Q8H PRN (Reason: Pain) simvastatin 20 mg Tablet 20 mg PO HS lisinopril 5 mg Tablet 5 mg PO DAILY cholecalciferol (vitamin D3) [Vitamin D3] 1,000 unit Tablet 1,000 units PO DAILY omeprazole 40 mg capsule,delayed release(DR/EC) 40 mg PO BID glipizide 2.5 mg tablet extended release 24hr 2.5 mg PO HS Referrals Referrals: July Brown MD [Primary Care Provider] -
--- NOTE | 2023-12-05 13:43 | CT Scan Report ---
CT ANGIOGRAM OF THE CHEST COMBO; CT angiogram of the abdomen AND PELVIS CLINICAL HISTORY: Syncope. Epigastric abdominal pain. COMPARISON STUDY: Chest x-ray dated 12/05/2023. Abdominal CT dated 10/18/2009. TECHNIQUE: Unenhanced CT scan of the chest was performed. Subsequently, following the IV administrati on of 119 cc of Optiray 320, CT angiogram of the chest, abdomen, and pelvis was performed from the th oracic inlet to the proximal femora. Images are reviewed in the axial, sagittal, and coronal planes. 3-D MIPS images are created and assessed. IV contrast was administered without complication. A dose l owering technique was utilized adhering to the principles of ALARA. The examinations are degraded by streak artifact from the arms which could not be elevated above the chest or abdomen. CT DOSE: 2867.96 mGy.cm FINDINGS: CHEST: Thyroid: Imaged portions of the thyroid gland are normal in size and attenuation. Surgical clips are seen above the left thyroid lobe. Thoracic aorta: No intramural hematoma is seen on the unenhanced series. The thoracic aorta is normal in course and caliber. The aortic arch demonstrates standard 3-vessel anatomy. No dissection is seen . The arch vessels are widely patent. Pulmonary vasculature: The pulmonary trunk is normal in caliber. There are no filling defects identif ied in the main, lobar, or segmental pulmonary arteries to indicate pulmonary embolus. Heart: The heart is enlarged and without pericardial effusion. The coronary arteries are densely calc ified. Lungs and pleural spaces: There is no airspace consolidation or pleural effusion. Mild subpleural ret iculation is seen throughout both lungs with bibasilar scarring/atelectasis. The trachea and central airways are clear. There are scattered calcified granulomas. Mediastinum: There is no mediastinal lymphadenopathy. Tenisha: Mildly enlarged hilar nodes measure up to 14 mm short axis. These may be related to chronic talita g disease. Axillae: There is no axillary lymphadenopathy. Bony thorax: The skeletal structures are osteopenic. Degenerative change and mild hyperkyphosis is no dago in the thoracic spine. No lytic or blastic bony lesions are identified. Arthritic change is noted in the shoulders with postsurgical change seen on the left. ABDOMEN AND PELVIS: Liver: The contrast-enhanced liver is normal in size, contour, and attenuation. There is no intrahepa tic biliary ductal dilatation. The main portal veins appear patent. Gallbladder: Surgically absent noting clips in the gallbladder fossa. Spleen: Normal in size and attenuation noting heterogeneous arterial phase enhancement. Pancreas: Moderately atrophic and grossly unremarkable. Adrenal glands: Unremarkable. Kidneys: The contrast enhanced kidneys demonstrate mild cortical atrophy and are without hydronephros is. Renal sinus cysts are seen on the left. The kidneys enhance symmetrically. Abdominal aorta and iliac arteries: The abdominal aorta is normal in course and caliber noting modera te atherosclerotic calcification. No dissection is seen. The iliac arteries are widely patent bilater ally. 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 There is focal curvature of the celiac trunk and this may represent me randy arcuate ligament syndrome. This measures up to 1.3 cm in diameter. The superior mesenteric and i nferior mesenteric arteries are widely patent. Hepatic arterial anatomy is conventional. The splenic artery is patent. 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 There are 2 left renal arteries and 3 right renal arteries. The renal arteries are patent bilaterally. Bowel: There is advanced colonic diverticulosis without CT evidence of acute diverticulitis. No bowel obstruction is seen. Moderate fecal retention is noted throughout the colon. The appendix is well-v isualized and normal. Peritoneum: There is no intraperitoneal free air or abdominal ascites. There is a small fat-containin g umbilical hernia. A 3 cm focus of fat necrosis is suggested in the right ventral abdominal wall. Lymphadenopathy: None. Pelvic viscera: The prostate gland is mildly enlarged and heterogeneous. The bladder wall appears thi ckened/trabeculated indicating chronic outlet obstruction. A 2.3 cm hutch diverticulum is seen on the right. There is evidence of previous right inguinal herniorrhaphy. Skeletal structures: The skeletal structures are osteopenic. There is moderate to advanced lumbosacra l spondylosis. Degenerative sclerosis is noted in the sacroiliac joints. No lytic or blastic Lesions are seen. IMPRESSION: 1. Unremarkable CT angiogram of the thoracic aorta. 2. There is no evidence of pulmonary embolus in the main, lobar, or segmental pulmonary arteries. 3. Cardiomegaly. 4. There is no airspace consolidation or pleural effusion. 5. There is high-grade focal stenosis at the origin of the celiac trunk with poststenotic dilatation. The configuration suggests median arcuate ligament syndrome. 6. Otherwise unremarkable CT angiogram of the abdominal aorta and its major branches. 7. Advanced colonic diverticulosis without CT evidence of acute diverticulitis. 8. Additional findings as above. ACT 112: Negative or not required by law. Electronically signed by: Geovany Patel M.D. 12/05/2023 1:41 PM
--- NOTE | 2023-12-05 15:38 | History & Physical Report ---
Date of Service December 05, 2023 Assessment & Plan (1) Syncope: (2) V-tach: (3) Hyperlipidemia: (4) Mixed Alzheimer's and vascular dementia: (5) Diabetes: (6) Hypertension: Plan This is an 78 M with HTN, HLD, DM2, and prior CVA among other conditions p/w syncope and episode of V tach who is being urgently taken to quality assurance lab technician for evaluation of coronary vasculature. Some of follow up plan to still be determined. 1) Syncope/Vtach/HLD -Admit to PCU post procedure unless cardiology recommends ICU -Patient is NPO for now pending procedure -Post-quality assurance lab technician care per cardiology -Antiplatelet recommendations per cardiology -Can continue Simvastatin or more high intensity statin based on recs per cardiology 2) DM2 -Patient NPO, will just order q6h accucheck for now -Can start on SSI if patient stable post procedure and taking PO; goal ser gluc 110-150 -A1C in AM 3) HTN -Monitor BP -- may be able to resume Lisinopril 5 mg daily in AM per home dose if this is confirmed 4) Mood disorder/Dementia -Reume Zoloft, Donepezil per home dose once confirmed 5) DVT PPx -- Will place SCDs only for now; can be switched to Lovenox/Heparin once cleared by cardiology to start 6) Code Status -- full code History of Present Illness Chief Complaint: Syncopal episode Primary Care Provider: July Brown MD History is largely from family because patient has dementia. 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 Per patient's daughter and , he was in [employer] this morning, when he c/o epigastric pain all of a sudden. Soon after he had a syncopal episode where he slumped over onto his and she had to help support him. This was about 10 AM. They called 911 and patient was brought here. Here in the ER, patient had a brief several second run of V tach. Given the combination of findings, patient will be taken to the cardiac quality assurance lab technician for evaluation of coronary vessels. Patient has no complaints at this time. No recent report from family of CP/SOB/f/c/n/v/d prior to the events of today. Allergies Allergy/AdvReac Type Severity Reaction Status Date / Time No Known Allergies Allergy Verified 04/08/20 10:24 Home Medications Medication Instructions Recorded Confirmed Type acetaminophen 500 mg tablet 1,000 mg PO Q8H PRN Pain 10/17/17 12/05/23 History (Tylenol Extra Strength) aspirin 81 mg tablet,delayed 81 mg PO DAILY 10/17/17 12/05/23 History release cholecalciferol (vitamin D3) 25 1,000 units PO DAILY 10/17/17 12/05/23 History mcg (1,000 unit) tablet (Vitamin D3) lisinopril 5 mg tablet 5 mg PO DAILY 10/17/17 12/05/23 History multivitamin 1 tab PO DAILY 10/17/17 12/05/23 History simvastatin 20 mg tablet 20 mg PO HS 10/17/17 12/05/23 History omeprazole 40 mg capsule,delayed 40 mg PO BID 04/30/21 12/05/23 History release sertraline 25 mg tablet 25 mg PO PM 04/30/21 12/05/23 History donepezil 10 mg tablet 10 mg PO BID #180 tabs 07/06/23 12/05/23 Rx glipizide 2.5 mg tablet, extended 2.5 mg PO HS 12/05/23 12/05/23 History release 24 hr Past Med/Surg History Problem List (Updated 12/05/23 @ 16:21 by Christos Foreman MD) Ischemic heart disease due to coronary artery obstruction Syncope V-tach (Acute) Syncope (Acute) 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) Idiopathic peripheral neuropathy (Acute) Small vessel disease, cerebrovascular (Acute) History of knee replacement procedure of left knee History of knee replacement procedure of right knee High blood pressure (Chronic) Abdominal pain (Acute) Left knee DJD Right knee DJD Medical History Hyperlipidemia Mixed Alzheimer's and vascular dementia Diabetes Dementia Hypertension Inguinal hernia Diabetes Actinic keratosis Surgical History H/O right inguinal hernia repair Hx of cholecystectomy Family History Brother Diabetes Hypertension Sister Diabetes Hypertension Other No pertinent family history Social History Smoking Status: Never smoker Feels Safe at Home: Yes Review of Systems Review of Systems: Unobtainable due to cognitive status Physical Exam Eyes: PERRL, conjunctivae normal, anicteric sclerae ENMT: external ear and nose normal, oropharynx normal Neck: trachea midline, no thyromegaly Respiratory: normal respiratory effort, lungs clear to auscultation Cardiovascular: RRR, no murmur, no edema Musculoskeletal: no cyanosis or clubbing, extremities motor strength 5/5 Skin: no rashes, warm and dry Neurologic: PERRL, EOMI, accommodation nl, no face palsy, no dysarthria Limited assessment because of dementia. Psychiatric: Orientation: alert, oriented to person, oriented to place and cooperative Patient with dementia, not able to perform detailed eval. Results & Data Results & Data Vital Signs (Past 12 Hours) Vital Signs Temp Pulse Pulse Resp BP BP Pulse Ox 12/05/23 14:09 56 L 16 98 12/05/23 14:00 132/75 12/05/23 13:57 55 L 17 96 12/05/23 13:45 56 L 14 96 12/05/23 13:30 115/68 12/05/23 13:27 57 L 13 99 12/05/23 13:00 56 L 16 99 12/05/23 13:00 121/67 12/05/23 12:30 57 L 15 90 12/05/23 12:30 116/66 12/05/23 12:16 98 12/05/23 12:16 61 20 139/67 98 12/05/23 12:16 98 12/05/23 12:06 68 12/05/23 12:03 74 22 12/05/23 12:03 140/83 12/05/23 11:33 57 L 14 12/05/23 11:31 139/67 12/05/23 11:30 98 12/05/23 11:30 61 20 139/67 98 12/05/23 11:30 12/05/23 11:30 36.5 C 59 L 20 139/67 98 O2 Del Method 12/05/23 14:09 12/05/23 14:00 12/05/23 13:57 12/05/23 13:45 12/05/23 13:30 12/05/23 13:27 12/05/23 13:00 12/05/23 13:00 12/05/23 12:30 12/05/23 12:30 12/05/23 12:16 Room Air 12/05/23 12:16 Room Air 12/05/23 12:16 Room Air 12/05/23 12:06 12/05/23 12:03 12/05/23 12:03 12/05/23 11:33 12/05/23 11:31 12/05/23 11:30 Room Air 12/05/23 11:30 Room Air 12/05/23 11:30 Room Air 12/05/23 11:30 Room Air Laboratory Results 12/05/23 12/05/23 12/05/23 13:45 11:44 11:43 WBC 10.90 H RBC 4.41 L Hgb 14.4 POC Hgb 13.9 L Hct 41.1 L POC Hct 41 L MCV 93.2 MCH 32.7 MCHC 35.0 RDW Std Deviation 44.2 RDW Coeff of Aruna 12.9 Plt Count 222 MPV 9.9 Immature Gran % (Auto) 0.3 Neut % (Auto) 83.3 Lymph % (Auto) 10.7 [place] % (Auto) 5.0 Eos % (Auto) 0.4 Baso % (Auto) 0.3 Neut # (Auto) 9.08 H Lymph # (Auto) 1.17 L [place] # (Auto) 0.55 Eos # (Auto) 0.04 Baso # (Auto) 0.03 Immature Gran # (Auto) 0.03 PT 11.3 INR 1.0 APTT 24 PTT Ratio 0.9 POC Sodium 140 Sodium 137 POC Potassium 4.3 Potassium 4.2 POC Chloride 101 Chloride 104 Carbon Dioxide 29 POC Total CO2 25 Anion Gap 4 POC Anion Gap 19.0 POC BUN 20 H BUN 20 Creatinine 0.90 POC Creatinine 1.0 Est Cr Clr Drug Dosing Not Reportable eGFR 86.34 BUN/Creatinine Ratio 22.2 H Glucose 120 H POC Glucose (other) 124 H Calcium 9.6 POC Ioniz Calcium Maria Eugenia 1.29 Magnesium 1.8 Troponin I High Sens 5.0 4.8 Lipase 17 Diagnostic Findings Chest X-Ray 12/05/23 11:36 SINGLE VIEW CHEST CLINICAL HISTORY: Atypical chest pain FINDINGS: An AP, portable, upright chest radiograph is compared to study dated 08/16/2014. The heart is mildly enlarged. The pulmonary vasculature is noncongested. Chronic interstitial thickening is similar to previous. The lungs and pleural spaces are clear. No pneumothorax is seen. The skeletal structures are osteopenic. The bony thorax is grossly intact. Postsurgical changes seen in the left shoulder. Surgical clips project over the left lower neck. IMPRESSION: No active disease in the chest. ACT 112: Negative or not required by law. Electronically signed by: Geovany Patel M.D. 12/05/2023 11:50 AM Abdomen/Pelvis CTA 12/05/23 11:39 CT ANGIOGRAM OF THE CHEST COMBO; CT angiogram of the abdomen AND PELVIS CLINICAL HISTORY: Syncope. Epigastric abdominal pain. COMPARISON STUDY: Chest x-ray dated 12/05/2023. Abdominal CT dated 10/18/2009. TECHNIQUE: Unenhanced CT scan of the chest was performed. Subsequently, following the IV administration of 119 cc of Optiray 320, CT angiogram of the chest, abdomen, and pelvis was performed from the thoracic inlet to the proximal femora. Images are reviewed in the axial, sagittal, and coronal planes. 3-D MIPS images are created and assessed. IV contrast was administered without complication. A dose lowering technique was utilized adhering to the principles of ALARA. The examinations are degraded by streak artifact from the arms which could not be elevated above the chest or abdomen. CT DOSE: 2867.96 mGy.cm FINDINGS: CHEST: Thyroid: Imaged portions of the thyroid gland are normal in size and attenuation. Surgical clips are seen above the left thyroid lobe. Thoracic aorta: No intramural hematoma is seen on the unenhanced series. The thoracic aorta is normal in course and caliber. The aortic arch demonstrates standard 3-vessel anatomy. No dissection is seen. The arch vessels are widely patent. Pulmonary vasculature: The pulmonary trunk is normal in caliber. There are no filling defects identified in the main, lobar, or segmental pulmonary arteries to indicate pulmonary embolus. Heart: The heart is enlarged and without pericardial effusion. The coronary arteries are densely calcified. Lungs and pleural spaces: There is no airspace consolidation or pleural effusion. Mild subpleural reticulation is seen throughout both lungs with bibasilar scarring/atelectasis. The trachea and central airways are clear. There are scattered calcified granulomas. Mediastinum: There is no mediastinal lymphadenopathy. Tenisha: Mildly enlarged hilar nodes measure up to 14 mm short axis. These may be related to chronic lung disease. Axillae: There is no axillary lymphadenopathy. Bony thorax: The skeletal structures are osteopenic. Degenerative change and mild hyperkyphosis is noted in the thoracic spine. No lytic or blastic bony lesions are identified. Arthritic change is noted in the shoulders with postsurgical change seen on the left. ABDOMEN AND PELVIS: Liver: The contrast-enhanced liver is normal in size, contour, and attenuation. There is no intrahepatic biliary ductal dilatation. The main portal veins appear patent. Gallbladder: Surgically absent noting clips in the gallbladder fossa. Spleen: Normal in size and attenuation noting heterogeneous arterial phase enhancement. Pancreas: Moderately atrophic and grossly unremarkable. Adrenal glands: Unremarkable. Kidneys: The contrast enhanced kidneys demonstrate mild cortical atrophy and are without hydronephrosis. Renal sinus cysts are seen on the left. The kidneys enhance symmetrically. Abdominal aorta and iliac arteries: The abdominal aorta is normal in course and caliber noting moderate atherosclerotic calcification. No dissection is seen. The iliac arteries are widely patent bilaterally. 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 There is focal curvature of the celiac trunk and this may represent median arcuate ligament syndrome. This measures up to 1.3 cm in diameter. The superior mesenteric and inferior mesenteric arteries are widely patent. Hepatic arterial anatomy is conventional. The splenic artery is patent. 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 There are 2 left renal arteries and 3 right renal arteries. The renal arteries are patent bilaterally. Bowel: There is advanced colonic diverticulosis without CT evidence of acute diverticulitis. No bowel obstruction is seen. Moderate fecal retention is noted throughout the colon. The appendix is well-visualized and normal. Peritoneum: There is no intraperitoneal free air or abdominal ascites. There is a small fat-containing umbilical hernia. A 3 cm focus of fat necrosis is suggested in the right ventral abdominal wall. Lymphadenopathy: None. Pelvic viscera: The prostate gland is mildly enlarged and heterogeneous. The bladder wall appears thickened/trabeculated indicating chronic outlet obstruction. A 2.3 cm hutch diverticulum is seen on the right. There is evidence of previous right inguinal herniorrhaphy. Skeletal structures: The skeletal structures are osteopenic. There is moderate to advanced lumbosacral spondylosis. Degenerative sclerosis is noted in the sacroiliac joints. No lytic or blastic Lesions are seen. IMPRESSION: 1. Unremarkable CT angiogram of the thoracic aorta. 2. There is no evidence of pulmonary embolus in the main, lobar, or segmental pulmonary arteries. 3. Cardiomegaly. 4. There is no airspace consolidation or pleural effusion. 5. There is high-grade focal stenosis at the origin of the celiac trunk with poststenotic dilatation. The configuration suggests median arcuate ligament syndrome. 6. Otherwise unremarkable CT angiogram of the abdominal aorta and its major branches. 7. Advanced colonic diverticulosis without CT evidence of acute diverticulitis. 8. Additional findings as above. ACT 112: Negative or not required by law. Electronically signed by: Geovany Patel M.D. 12/05/2023 1:41 PM Chest CTA 12/05/23 11:39 CT ANGIOGRAM OF THE CHEST COMBO; CT angiogram of the abdomen AND PELVIS CLINICAL HISTORY: Syncope. Epigastric abdominal pain. COMPARISON STUDY: Chest x-ray dated 12/05/2023. Abdominal CT dated 10/18/2009. TECHNIQUE: Unenhanced CT scan of the chest was performed. Subsequently, following the IV administration of 119 cc of Optiray 320, CT angiogram of the chest, abdomen, and pelvis was performed from the thoracic inlet to the proximal femora. Images are reviewed in the axial, sagittal, and coronal planes. 3-D MIPS images are created and assessed. IV contrast was administered without complication. A dose lowering technique was utilized adhering to the principles of ALARA. The examinations are degraded by streak artifact from the arms which could not be elevated above the chest or abdomen. CT DOSE: 2867.96 mGy.cm FINDINGS: CHEST: Thyroid: Imaged portions of the thyroid gland are normal in size and attenuation. Surgical clips are seen above the left thyroid lobe. Thoracic aorta: No intramural hematoma is seen on the unenhanced series. The thoracic aorta is normal in course and caliber. The aortic arch demonstrates standard 3-vessel anatomy. No dissection is seen. The arch vessels are widely patent. Pulmonary vasculature: The pulmonary trunk is normal in caliber. There are no filling defects identified in the main, lobar, or segmental pulmonary arteries to indicate pulmonary embolus. Heart: The heart is enlarged and without pericardial effusion. The coronary arteries are densely calcified. Lungs and pleural spaces: There is no airspace consolidation or pleural effusion. Mild subpleural reticulation is seen throughout both lungs with bibasilar scarring/atelectasis. The trachea and central airways are clear. There are scattered calcified granulomas. Mediastinum: There is no mediastinal lymphadenopathy. Tenisha: Mildly enlarged hilar nodes measure up to 14 mm short axis. These may be related to chronic lung disease. Axillae: There is no axillary lymphadenopathy. Bony thorax: The skeletal structures are osteopenic. Degenerative change and mild hyperkyphosis is noted in the thoracic spine. No lytic or blastic bony lesions are identified. Arthritic change is noted in the shoulders with postsurgical change seen on the left. ABDOMEN AND PELVIS: Liver: The contrast-enhanced liver is normal in size, contour, and attenuation. There is no intrahepatic biliary ductal dilatation. The main portal veins appear patent. Gallbladder: Surgically absent noting clips in the gallbladder fossa. Spleen: Normal in size and attenuation noting heterogeneous arterial phase enhancement. Pancreas: Moderately atrophic and grossly unremarkable. Adrenal glands: Unremarkable. Kidneys: The contrast enhanced kidneys demonstrate mild cortical atrophy and are without hydronephrosis. Renal sinus cysts are seen on the left. The kidneys enhance symmetrically. Abdominal aorta and iliac arteries: The abdominal aorta is normal in course and caliber noting moderate atherosclerotic calcification. No dissection is seen. The iliac arteries are widely patent bilaterally. 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 There is focal curvature of the celiac trunk and this may represent median arcuate ligament syndrome. This measures up to 1.3 cm in diameter. The superior mesenteric and inferior mesenteric arteries are widely patent. Hepatic arterial anatomy is conventional. The splenic artery is patent. 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 There are 2 left renal arteries and 3 right renal arteries. The renal arteries are patent bilaterally. Bowel: There is advanced colonic diverticulosis without CT evidence of acute diverticulitis. No bowel obstruction is seen. Moderate fecal retention is noted throughout the colon. The appendix is well-visualized and normal. Peritoneum: There is no intraperitoneal free air or abdominal ascites. There is a small fat-containing umbilical hernia. A 3 cm focus of fat necrosis is suggested in the right ventral abdominal wall. Lymphadenopathy: None. Pelvic viscera: The prostate gland is mildly enlarged and heterogeneous. The bladder wall appears thickened/trabeculated indicating chronic outlet obstruction. A 2.3 cm hutch diverticulum is seen on the right. There is evidence of previous right inguinal herniorrhaphy. Skeletal structures: The skeletal structures are osteopenic. There is moderate to advanced lumbosacral spondylosis. Degenerative sclerosis is noted in the sacroiliac joints. No lytic or blastic Lesions are seen. IMPRESSION: 1. Unremarkable CT angiogram of the thoracic aorta. 2. There is no evidence of pulmonary embolus in the main, lobar, or segmental pulmonary arteries. 3. Cardiomegaly. 4. There is no airspace consolidation or pleural effusion. 5. There is high-grade focal stenosis at the origin of the celiac trunk with poststenotic dilatation. The configuration suggests median arcuate ligament syndrome. 6. Otherwise unremarkable CT angiogram of the abdominal aorta and its major branches. 7. Advanced colonic diverticulosis without CT evidence of acute diverticulitis. 8. Additional findings as above. ACT 112: Negative or not required by law. Electronically signed by: Geovany Patel M.D. 12/05/2023 1:[address] 12/05/23 11:39 CT SCAN OF THE BRAIN WITHOUT IV CONTRAST CLINICAL HISTORY: Syncope COMPARISON STUDY: CT of the brain dated 10/27/2017. TECHNIQUE: Unenhanced axial CT scan of the brain is performed from the vertex to the skull base. A dose lowering technique was utilized adhering to the principles of ALARA. FINDINGS: Brain parenchyma: There is age-related involutional change noting moderate subcortical and periventricular microangiopathic disease. There is no hemorrhage, mass effect, or evidence of acute territorial ischemia by CT criteria. Jordan-white matter differentiation is preserved. No extra-axial fluid collection is seen. Ventricles, sulci, cisterns: Prominent secondary to involutional change. Intracranial vasculature: There is atherosclerotic calcification of the cavernous carotid arteries. Calvarium: Unremarkable. Sinuses and mastoids: The visualized paranasal sinuses are clear. The mastoid air cells are well pneumatized. Orbits: The bony orbits are grossly intact. IMPRESSION: There is no hemorrhage, mass effect, or evidence of acute territorial ischemia by CT criteria. ACT 112: Negative or not required by law. Electronically signed by: Geovany Patel M.D. 12/05/2023 12:18 PM ECG Additional Comments: Sinus Bradycardia at [address] abnormal in septal and laeral leads Code Status & VTE Plan Code Status Per discussion with and daughter, patient would like to be full code, but would not want to have life sustained indefinitely by artifical measures. PG Care Time/CCT Total # of Minutes Spent Total Time Spent with Patient: Total time spent is greater than 50% in coordination of care (as documented) at patient's floor/unit and/or counseling patient: Coding Level of Care Code 24962 INT INP/OBS CARE 2/55MIN Diagnoses Syncope, unspecified syncope type R55 Syncope type: unspecified V-tach I47.20 Hyperlipidemia E78.5 Mixed Alzheimer's and vascular dementia G30.9; F01.50; F02.80 Diabetes E11.9 Hypertension I10 (1) Syncope Syncope type: unspecified Qualified Code(s): R55 - Syncope and collapse
--- NOTE | 2023-12-05 16:23 | Consultation ---
Date of Consultation December 05, 2023 at 3:30pm Assessment & Plan (1) Syncope: Present on Admission?: Yes (2) V-tach: Present on Admission?: Yes (3) Ischemic heart disease due to coronary artery obstruction: History of Present Illness Requesting Physician: Dr. Ghulam Duarte Reason for Consultation: Syncopesuspected ischemic ventricular tachycardia associated syncope History of Present Illness Patient is a pleasant reasonably functional but with some cognitive impairment who In [employer] reportedly had a syncopal event and recovered without resuscitation On arrival in the ER, EKG suggestive of ischemic changes he had a brief episode of nonsustained VT in the ED Based on the above presentation, cardiology was consulted On speaking with the patient's daughter who is an RN, she corroborates above but patient is a poor historian and unable to give much in terms of history but he categorically at this time denies chest pain shortness of breath Also denies PND orthopnea Allergies Allergy/AdvReac Type Severity Reaction Status Date / Time No Known Allergies Allergy Verified 04/08/20 10:24 Home Medications Medication Instructions Recorded Confirmed Type acetaminophen 500 mg tablet 1,000 mg PO Q8H PRN Pain 10/17/17 12/05/23 History (Tylenol Extra Strength) aspirin 81 mg tablet,delayed 81 mg PO DAILY 10/17/17 12/05/23 History release cholecalciferol (vitamin D3) 25 1,000 units PO DAILY 10/17/17 12/05/23 History mcg (1,000 unit) tablet (Vitamin D3) lisinopril 5 mg tablet 5 mg PO DAILY 10/17/17 12/05/23 History multivitamin 1 tab PO DAILY 10/17/17 12/05/23 History simvastatin 20 mg tablet 20 mg PO HS 10/17/17 12/05/23 History omeprazole 40 mg capsule,delayed 40 mg PO BID 04/30/21 12/05/23 History release sertraline 25 mg tablet 25 mg PO PM 04/30/21 12/05/23 History donepezil 10 mg tablet 10 mg PO BID #180 tabs 07/06/23 12/05/23 Rx glipizide 2.5 mg tablet, extended 2.5 mg PO HS 12/05/23 12/05/23 History release 24 hr Patient History Medical History Hyperlipidemia Mixed Alzheimer's and vascular dementia Diabetes Dementia Hypertension Inguinal hernia Diabetes Actinic keratosis Surgical History H/O right inguinal hernia repair Hx of cholecystectomy Family History Brother Diabetes Hypertension Sister Diabetes Hypertension Other No pertinent family history Social History Smoking Status: Never smoker Feels Safe at Home: Yes Review of Systems Review of Systems: Besides what has been stated above, 10 point review of systems negative except as stated in the HPI Physical Exam Physical Exam: Appears comfortable and not in distress Eyes: Pupils equal and reactive to light and accommodation Extraocular muscles intact Respiratory: Good air entry bilaterally, no rales or crackles Cardiovascular: Rate/Rhythm: regular rate and regular rhythm Heart Sounds: normal S1 and normal S2 Gastrointestinal (Abdomen): normal bowel sounds, soft, nontender, no hepatosplenomegaly Skin: no rashes, warm and dry Neurologic: Awake alert oriented answers simple questions, no gross focal deficits Results & Data Vital Signs (Past 12 Hours) Vital Signs Temp Pulse Pulse Resp BP BP Pulse Ox 12/05/23 15:56 57 L 20 150/82 H 100 12/05/23 14:09 56 L 16 98 12/05/23 14:00 132/75 12/05/23 13:57 55 L 17 96 12/05/23 13:45 56 L 14 96 12/05/23 13:30 115/68 12/05/23 13:27 57 L 13 99 12/05/23 13:00 56 L 16 99 12/05/23 13:00 121/67 12/05/23 12:30 57 L 15 90 12/05/23 12:30 116/66 12/05/23 12:16 98 12/05/23 12:16 61 20 139/67 98 12/05/23 12:16 98 12/05/23 12:06 68 12/05/23 12:03 74 22 12/05/23 12:03 140/83 12/05/23 11:33 57 L 14 12/05/23 11:31 139/67 12/05/23 11:30 98 12/05/23 11:30 61 20 139/67 98 12/05/23 11:30 12/05/23 11:30 36.5 C 59 L 20 139/67 98 O2 Del Method 12/05/23 15:56 Room Air 12/05/23 14:09 12/05/23 14:00 12/05/23 13:57 12/05/23 13:45 12/05/23 13:30 12/05/23 13:27 12/05/23 13:00 12/05/23 13:00 12/05/23 12:30 12/05/23 12:30 12/05/23 12:16 Room Air 12/05/23 12:16 Room Air 12/05/23 12:16 Room Air 12/05/23 12:06 12/05/23 12:03 12/05/23 12:03 12/05/23 11:33 12/05/23 11:31 12/05/23 11:30 Room Air 12/05/23 11:30 Room Air 12/05/23 11:30 Room Air 12/05/23 11:30 Room Air ECG Additional Comments: Sinus rhythm, left bundle branch block, mild ST depressions lateral segments suggestive of ischemia Telemetry strip in ED showed nonsustained VT PG Care Time/CCT Total # of Minutes Spent Total Time Spent with Patient: Total time spent is greater than 50% in coordination of care (as documented) at patient's floor/unit and/or counseling patient: Coding Level of Care Code 85760 IN/OBS CONSULT LVL 4,60M Medical Decision Making High Complexity Diagnoses Syncope, unspecified syncope type R55 Syncope type: unspecified V-tach I47.20 Ischemic heart disease due to coronary artery obstruction I24.0; I25.9 Time Spent (min) 90 (1) Syncope Syncope type: unspecified Qualified Code(s): R55 - Syncope and collapse
[2023-12-05] MEDS ORDERED: ONDANSETRON INJ 2 MG/ML 2 ML VIAL IV PRN (16:49)
[2023-12-05] MEDS ORDERED: NITROGLYCERIN SL 0.4 MG/TAB TAB SL PRN (16:49)
[2023-12-05] MEDS: HEPARIN (PORCINE) 1000 UNIT/ML 10 ML (CATH LAB USE ONLY) ONE (16:55)
[2023-12-05] MEDS: fentaNYL citrate PF 100 MCG/2 ML VIAL ONE (16:55)
[2023-12-05] MEDS: MIDAZOLAM HCL 1 MG/ML 2ML VIAL ONE (16:56)
[2023-12-05] MEDS: OPTIRAY 350 ONE (16:57)
[2023-12-05] MEDS: niCARdipine HCL INJ 2.5 MG/ML 10 ML AMP ONE (16:57)
[2023-12-05] MEDS: NITROGLYCERIN/D5W 100MCG/ML 20ML SYR ONE (16:58)
[2023-12-05] MEDS: TICAGRELOR 90 MG TAB ONE (16:58)
--- NOTE | 2023-12-05 17:26 | Cardiac Catheterization ---
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 High Intensity statin ) Cardiac Cath Procedure Full Procedure Date December 05, 2023 Pre-Procedure Diagnosis Pre-Procedure Diagnosis: Arrhythmia (VT ) AUC Score AUC Score: 8 Post-Procedure Diagnosis Post-Procedure Diagnosis: Severe CAD and Successful PCI Procedure(s) Performed Procedure(s) Performed: Coronary Angiography, Left Heart Cath and Drug Eluting Stent Brake Tester Christos Foreman MD Estimated Blood Loss Estimated Blood Loss: 10 cc Summary of Findings History as a definitive test right radial artery access Cardiac catheterization including selective bilateral coronary angiography Percutaneous coronary intervention of the mid LAD Indication: Ventricular tachycardia; syncope Ischemic EKG Patient was brought to the cardiac Laydown Machine Operator in the fasting state and connected to real-time hemodynamic, electrical, and respiratory monitor Utilizing ultrasound guidance and micropuncture technique, 6 Grenadian sheath was s ecured into the right radial artery 6 Grenadian JL 3.5 and JR4 was used for left and right coronary angiography 6 Grenadian JR4 was used for hemodynamics Hemodynamics Left ventricle 126/1/9 mmHg Pressure 126/65 mmHg Coronary findings Left dominant system Right coronary artery is a small nondominant The proximal, mid, distal RCA have mild luminal regularities The left main is of normal caliber without stenosis it bifurcates into the LAD and circumflex The circumflex, its 2 obtuse marginal branch and the PDA branch are free of disease The proximal LAD has what appears to be a 20% lesion that appears mildly thrombotic but not impeding blood flow The mid LAD has a 70 to 80% hazy lesion at the takeoff of the second diagonal branch with characteristics suggestive of a ruptured plaque that appeared unstable The distal LAD is free of disease Intervention Heparin was given to achieve therapeutic ACT An EBU guide 3.5 was used to engage the left main followed by successfully wiring the LAD used a run-through wire Direct stenting of the mid LAD unstable plaque was performed using a 3.0 x 12 mm drug-eluting stent Postprocedure 2 orthogonal shots without a wire across showed appropriate stent apposition no loss of branches or dissections TR band was used to secure right radial artery hemostasis Conclusion Syncope; ventricular tachycardia with a 70% mid LAD lesion that appeared to be a ruptured plaque successful PCI Recommendations DAPT Beta-dontrell High intensity statin Echocardiogram for review Findings discussed with the patient and the patient's daughter Christos Foreman MD, FACC, FSCAI, MIKE Hemodynamics Rest Ao:: 126/85 Final Ao: 126/56 LV: 126/02/16 Recommendations Recommendations: Management Recommendatons (DAPT, BB. High Intensity statin ) Radiation Exposure (mGy) 903 Contrast (mls) 110 Anesthesia Moderate sedation using fentanyl and versed Procedural Complication(s) None I attest to the content of the Intraoperative Record and any orders documented therein. Any exceptions are noted below. Vascular Charges Indication for Procedure (1) V-tach: PG Care Time/CCT Total # of Minutes Spent Total Time Spent: 75 Total Time Spent with Patient: Total time spent is greater than 50% in coordination of care (as documented) at patient's floor/unit and/or counseling patient:
[2023-12-05] MEDS ORDERED: CARBOHYDRATES FOR HYPOGLYCEMIA PO PRN (17:27)
[2023-12-05] MEDS ORDERED: GLUCOSE 10 TAB/TUBE PO PRN (17:27)
[2023-12-05] MEDS ORDERED: DEXTROSE 50% 50 ML SYRINGE IV PRN (17:27)
[2023-12-05] MEDS ORDERED: GLUCAGON FOR INJ 1 MG VIAL SQ PRN (17:27)
[2023-12-05] MEDS ORDERED: GLUCOSE 40% GEL 15 GM TUBE PO PRN (17:27)
--- NOTE | 2023-12-05 18:15 | Cardiac Catheterization ---
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 High Intensity statin ) Cardiac Cath Procedure Full Procedure Date December 05, 2023 Pre-Procedure Diagnosis Pre-Procedure Diagnosis: Arrhythmia (VT ) AUC Score AUC Score: 8 Post-Procedure Diagnosis Post-Procedure Diagnosis: Severe CAD and Successful PCI Procedure(s) Performed Procedure(s) Performed: Coronary Angiography, Left Heart Cath and Drug Eluting Stent Ramp Lead Christos Foreman MD Estimated Blood Loss Estimated Blood Loss: 10 cc Summary of Findings Right radial artery access Cardiac catheterization including selective bilateral coronary angiography Percutaneous coronary intervention of the mid LAD Indication: Ventricular tachycardia; syncope Ischemic EKG Patient was brought to the cardiac Boat Dock Operator in the fasting state and connected to real-time hemodynamic, electrical, and respiratory monitor Utilizing ultrasound guidance and micropuncture technique, 6 Tuvaluan sheath was secured into the right radial artery 6 Tu[place] JL 3.5 and JR4 was used for left and right coronary angiography 6 Tu[place] JR4 was used for hemodynamics Hemodynamics Left ventricle 126/1/9 mmHg Pressure 126/65 mmHg Coronary findings Left dominant system Right coronary artery is a small nondominant The proximal, mid, distal RCA have mild luminal regularities The left main is of normal caliber without stenosis it bifurcates into the LAD and circumflex The circumflex, its 2 obtuse marginal branch and the PDA branch are free of disease The proximal LAD has what appears to be a 20% lesion that appears mildly thrombotic but not impeding blood flow The mid LAD has a 70 to 80% hazy lesion at the takeoff of the second diagonal branch with characteristics suggestive of a ruptured plaque that appeared unstable The distal LAD is free of disease Intervention Heparin was given to achieve therapeutic ACT An EBU guide 3.5 was used to engage the left main followed by successfully wiring the LAD used a run-through wire Direct stenting of the mid LAD unstable plaque was performed using a 3.0 x 12 mm drug-eluting stent Postprocedure 2 orthogonal shots without a wire across showed appropriate stent apposition no loss of branches or dissections TR band was used to secure right radial artery hemostasis Conclusion Syncope; ventricular tachycardia with a 70% mid LAD lesion that appeared to be a ruptured plaque successful PCI Recommendations DAPT Beta-dontrell High intensity statin Echocardiogram for review Findings discussed with the patient and the patient's daughter Christos Foreman MD, FACC, FSCAI, MIKE Hemodynamics Rest Ao:: 133/65 Final Ao: 112/45 LV: 130/11 Recommendations Recommendations: Management Recommendatons (DAPT, BB. High Intensity statin ) Radiation Exposure (mGy) 903mGy Contrast (mls) 110 Anesthesia Moderate sedation using fentanyl and versed Procedural Complication(s) None I attest to the content of the Intraoperative Record and any orders documented therein. Any exceptions are noted below. Vascular Charges Indication for Procedure (1) Ischemic heart disease due to coronary artery obstruction: (2) V-tach: PG Care Time/CCT Total # of Minutes Spent Total Time Spent with Patient: Total time spent is greater than 50% in coordination of care (as documented) at patient's floor/unit and/or counseling patient: Prolonged Care Time 75
[2023-12-05] MEDS: PANTOprazole 40 MG TAB PO SCH (20:45)
[2023-12-05] MEDS: ROSUVASTATIN CALCIUM 20 MG TAB PO SCH (21:15)
[2023-12-05] MEDS: DONEPEZIL HCL 10 MG TAB PO SCH (21:15)
[2023-12-06 00:34] VITALS: RESP 16
[2023-12-06] MEDS: ALPRAZolam 0.25 MG TABLET PO PRN (02:30)
[2023-12-06 06:12] LABS: Hematocrit (blood only) 35.5 % (42.0-52.0); Hemoglobin 12.6 g/dl (14.0-18.0); Mean Corpuscular Hemoglobin 32.1 pg (25.0-34.0); Mean Corpuscular Hgb Conc 35.5 g/dL (32.0-36.0); Mean Corpuscular Volume 90.3 fL (80.0-100.0); Platelet Count 204 K/uL (130-400); RDW Coefficient of Variation 12.5 % (11.5-14.5); RDW Standard Deviation 41.8 fL (36.4-46.3); Red Blood Count 3.93 M/uL (4.70-6.10); White Blood Count 8.36 K/ul (4.8-10.8)
[2023-12-06 06:23] LABS: BUN Creatinine Ratio 18.2 (10-20); Creatinine Clr Calc Pharmacy 69.1 ml/min; Potassium 3.9 mmol/L (3.5-5.1)
[2023-12-06 07:38] LABS: Estimated Average Glucose 134 mg/dl; Hemoglobin A1C 6.3 % (4.5-5.6)
[2023-12-06] MEDS: lisinopril 5 MG TAB PO SCH (10:12)
[2023-12-06] MEDS: TICAGRELOR 90 MG TAB PO SCH (10:12)
[2023-12-06] MEDS: SERTRALINE HCL 50 MG TABLET PO SCH (10:12)
--- NOTE | 2023-12-06 15:50 | XCELERA ---
[id number]
[2023-12-06] MEDS: ASPIRIN 81 MG ECTAB PO SCH (15:52)
--- NOTE | 2023-12-06 15:55 | Hospitalist Progress Note ---
Date of Service December 06, 2023 Assessment & Plan (1) Cardiac syncope: (2) DM2 (diabetes mellitus, type 2): (3) High blood pressure: Admission and Anticipated Discharge Date Admission Date: December 05, 2023 Merly Clay is a 78 y/o M with a PmHx: ischemic heart disease, carcinoid tumor, dementia, and small vessel cerebrovascular disease, rushed to ED after severe abdominal pain and a syncopal event with episode of v-tach. Patient was urgently sent to laboratory specialist and had catheterization done yesterday evening with successful PCI after a 70% LAD lesion with ruptured plaque was found. Today the patient is resting comfortably in the hospital with his daughter at bedside. Patient's daughter explained much of the history of the previous day as the patient has moderate cognitive decline and dementia. Patient is able to endorse that he has some lingering abdominal pain, but this is different from the severe pain he had before his syncopal event. Patient denies chest pain, palpitations, chest tightness, nausea, vomiting, SOB, cough, wheeze, fevers, or chills. 1) Syncope/Vtach/HLD -Admit to PCU post procedure unless cardiology recommends ICU -Patient is NPO for now pending procedure -Post-laboratory specialist care per cardiology -Antiplatelet recommendations per cardiology -Can continue Simvastatin or more high intensity statin based on recs per cardiology 2) DM2 -Patient NPO, will just order q6h accucheck for now -Can start on SSI if patient stable post procedure and taking PO; goal ser gluc 110-150 -A1C in AM 3) HTN -Monitor BP -- may be able to resume Lisinopril 5 mg daily in AM per home dose if this is confirmed 4) Mood disorder/Dementia -Reume Zoloft, Donepezil per home dose once confirmed 5) DVT PPx -- Will place SCDs only for now; can be switched to Lovenox/Heparin once cleared by cardiology to start 6) Code Status -- full code History of Present Illness Chief Complaint: Syncopal episode Primary Care Provider: July Brown MD History is largely from family because patient has dementia. 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 Per patient's daughter and , he was in [employer] this morning, when he c/o epigastric pain all of a sudden. Soon after he had a syncopal episode where he slumped over onto his and she had to help support him. This was about 10 AM. They called 911 and patient was brought here. Here in the ER, patient had a brief several second run of V tach. Given the combination of findings, patient will be taken to the cardiac laboratory specialist for evaluation of coronary vessels. Patient has no complaints at this time. No recent report from family of CP/SOB/f/c/n/v/d prior to the events of today. Physical Exam Physical Exam: General: patient resting comfortably, NAD, non-toxic in appearance, answers questions appropriately. Skin: warm, dry, intact HEENT: NC/AT, anicteric sclera, conjunctiva without injection, moist mucus membranes. Heart: +S1/S2, regular, no m/r/g Lungs: equal air entry bilaterally, no rales/rhonchi/wheezes Abd: +BS, soft, NT/ND Ext: warm, no clubbing/cyanosis or edema, Elham's neg. Neuro: nonfocal, speech intact, no facial droop, moving all extremities. Results & Data Results & Data Vital Signs (Past 12 Hours) Vital Signs Temp Pulse Pulse Resp BP Pulse Ox O2 Del Method 12/06/23 10:54 36.7 C 72 16 111/53 L 98 Room Air 12/06/23 07:45 36.7 C 58 L 16 126/67 96 Room Air 12/06/23 07:30 85 12/06/23 04:19 36.6 C 66 16 126/73 96 Room Air
--- NOTE | 2023-12-06 16:49 | Cardiology Progress Note ---
Date of Service December 06, 2023 Assessment & Plan (1) Syncope: (2) V-tach: Plan 1. Syncope: Unclear etiology. Possibly cardiogenic. 1 brief run of nonsustained VT noted in the emergency room. No high degree AV block or bradycardia. 2. Coronary artery disease: Patient was noted to have a lesion in the mid LAD. This was felt to be a ruptured plaque. He did not have an NSTEMI. No evidence of infarction. Echocardiogram is normal. No current symptoms. It would seem reasonable to consider discharge today. Tomorrow would also be reasonable. He should be discharged on aspirin 81 mg daily, Brilinta 90 mg twice daily and rosuvastatin 20 mg daily. I do not think he requires beta-blockade as he did not actually suffer a myocardial infarction. He should refrain from vigorous use of the right wrist and hand for 7 days. No lifting greater than 5 pounds with the right hand or arm. Admission and Anticipated Discharge Date Admission Date: December 05, 2023 Subjective This afternoon the patient clearly feeling well. He denied any discomfort at the right radial access site. He denies any chest pain. According to his who was present in the room today he was ambulatory without symptoms. He denied dizziness or lightheadedness. Review of Systems Review of Systems: Per HPI Physical Exam Physical Exam: The patient is alert and oriented. Mood and affect appeared normal. He answered all questions appropriately. He could not recall many of the events which occurred yesterday. HEENT: Pupils are equal and reactive to light and accommodation. Extraocular movements are intact. The sclerae are anicteric. Neuro: Cranial nerves intact Lungs: Clear to auscultation bilaterally. He has good air movement without use of accessory muscles. No rales wheezes or rhonchi. Cardiac: Heart demonstrates a regular rate and rhythm. Normal S1 and S2. No murmurs on examination. Pulses: Good perfusion of the right hand with palpable right radial pulse. Extremities: There was no evidence of hypoperfusion. There is no cyanosis or clubbing. There is no edema. Skin: I did not appreciate any rashes on examination today. Results & Data Vital Signs (Past 12 Hours) Vital Signs Temp Pulse Pulse Resp BP Pulse Ox O2 Del Method 12/06/23 10:54 36.7 C 72 16 111/53 L 98 Room Air 12/06/23 07:45 36.7 C 58 L 16 126/67 96 Room Air 12/06/23 07:30 85 Laboratory Results Abnormal Lab Results 12/05/23 12/05/23 12/06/23 16:46 20:49 05:44 WBC 8.36 RBC 3.93 L Hgb 12.6 L Hct 35.5 L MCV 90.3 MCH 32.1 MCHC 35.5 RDW Std Deviation 41.8 RDW Coeff of Aruna 12.5 Plt Count 204 MPV 10.0 Activ Coag Time Kaolin 232 H Sodium 137 Potassium 3.9 Chloride 106 Carbon Dioxide 27 Anion Gap 4 BUN 16 Creatinine 0.88 Est Cr Clr Drug Dosing 69.1 eGFR 86.93 BUN/Creatinine Ratio 18.2 Glucose 129 H POC Glucose 142 H Estimat Average Glucose 134 Hemoglobin A1c 6.3 H Calcium 9.0 12/06/23 12/06/23 08:15 11:42 WBC RBC Hgb Hct MCV MCH MCHC RDW Std Deviation RDW Coeff of Aruna Plt Count MPV Activ Coag Time Kaolin Sodium Potassium Chloride Carbon Dioxide Anion Gap BUN Creatinine Est Cr Clr Drug Dosing eGFR BUN/Creatinine Ratio Glucose POC Glucose 102 H 103 H Estimat Average Glucose Hemoglobin A1c Calcium Diagnostic Findings Coronary angiography performed 12/05/2019: Hazy mid LAD lesion estimated at 70%. PCI to the mid LAD. Left ventricular end-diastolic pressure 11 Echocardiogram performed today revealed preserved LV systolic function without regional wall motion abnormalities. Normal significant valvular heart disease. PG Care Time/CCT Total # of Minutes Spent Total Time Spent with Patient: Total time spent is greater than 50% in coordination of care (as documented) at patient's floor/unit and/or counseling patient: Coding Level of Care Code 18305 SUB INP/OBS CARE 2/35MIN Diagnoses Syncope, unspecified syncope type R55 Syncope type: unspecified V-tach I47.20 (1) Syncope Syncope type: unspecified Qualified Code(s): R55 - Syncope and collapse
[2023-12-06 16:52] VITALS: BP 125/60; TEMP 97.2; O2SAT 90
--- NOTE | 2023-12-06 17:23 | Discharge Summary ---
Date of Service December 06, 2023 Admission HPI Per Admitting Provider History is largely from family because patient has dementia. 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 Per patient's daughter and , he was in [place] this morning, when he c/o epigastric pain all of a sudden. Soon after he had a syncopal episode where he slumped over onto his and she had to help support him. This was about 10 AM. They called 911 and patient was brought here. Here in the ER, patient had a brief several second run of V tach. Given the combination of findings, patient will be taken to the cardiac cardiac cath technologist for evaluation of coronary vessels. Patient has no complaints at this time. No recent report from family of CP/SOB/f/c/n/v/d prior to the events of today. Principal Diagnosis Cardiac syncope Discharge Exam General: patient resting comfortably, NAD, non-toxic in appearance, answers questions appropriately. Skin: warm, dry, intact HEENT: NC/AT, anicteric sclera, conjunctiva without injection, moist mucus membranes. Heart: +S1/S2, regular, no m/r/g Lungs: equal air entry bilaterally, no rales/rhonchi/wheezes Abd: +BS, soft, NT/ND Ext: warm, no clubbing/cyanosis or edema, Elham's neg. Neuro: nonfocal, speech intact, no facial droop, moving all extremities. Discharge Data Allergies Allergy/AdvReac Type Severity Reaction Status Date / Time No Known Allergies Allergy Verified 04/08/20 10:24 Consultations 12/05/23 14:28 Consult Cardiac Catheterization Stat ED Decision to Admit Stat 12/05/23 16:49 Consult Cardiac Rehabilitation Routine Procedures Performed Operation Date: 12/05/23 15:35 Actual Procedures p Cineradiography w/Routine Exam - Christos Formean MD p Cath, Left with Cors and Vent - Christos Foreman MD p Drug Eluting Stent SGl Vessel - Christos Foreman MD Ordered Studies 12/05/23 11:39 CT angio abdomen pelvis w con Stat CT angio chest dissec wo/w con Stat CT head/brain wo con Stat 12/05/23 15:34 CL Cath Imgs for PACS use only Stat Laboratory Results WBC 8.36 K/ul (4.8-10.8) 12/06/23 05:44 RBC 3.93 M/uL (4.70-6.10) L 12/06/23 05:44 Hgb 12.6 g/dl (14.0-18.0) L 12/06/23 05:44 POC Hgb 13.9 g/dl (14.0-18.0) L 12/05/23 11:44 Hct 35.5 % (42.0-52.0) L 12/06/23 05:44 POC Hct 41 % (42-52) L 12/05/23 11:44 MCV 90.3 fL (80.0-100.0) 12/06/23 05:44 MCH 32.1 pg (25.0-34.0) 12/06/23 05:44 MCHC 35.5 g/dL (32.0-36.0) 12/06/23 05:44 RDW Std Deviation 41.8 fL (36.4-46.3) 12/06/23 05:44 RDW Coeff of Aruna 12.5 % (11.5-14.5) 12/06/23 05:44 Plt Count 204 K/uL (130-400) 12/06/23 05:44 MPV 10.0 fL (9.4-12.4) 12/06/23 05:44 Immature Gran % (Auto) 0.3 % 12/05/23 11:43 Neut % (Auto) 83.3 % 12/05/23 11:43 Lymph % (Auto) 10.7 % 12/05/23 11:43 Adair % (Auto) 5.0 % 12/05/23 11:43 Eos % (Auto) 0.4 % 12/05/23 11:43 Baso % (Auto) 0.3 % 12/05/23 11:43 Neut # (Auto) 9.08 K/uL (1.40-6.50) H 12/05/23 11:43 Lymph # (Auto) 1.17 K/uL (1.20-3.40) L 12/05/23 11:43 Adair # (Auto) 0.55 K/uL (0.11-0.59) 12/05/23 11:43 Eos # (Auto) 0.04 K/uL (0.00-0.50) 12/05/23 11:43 Baso # (Auto) 0.03 K/uL (0.00-0.20) 12/05/23 11:43 Immature Gran # (Auto) 0.03 K/uL (0.01-0.20) 12/05/23 11:43 PT 11.3 Seconds (9.0-12.0) 12/05/23 11:43 INR 1.0 (0.9-1.1) 12/05/23 11:43 APTT 24 Seconds (21-31) 12/05/23 11:43 PTT Ratio 0.9 12/05/23 11:43 Activ Coag Time Kaolin 232 SECONDS (94-140) H 12/05/23 16:46 POC Sodium 140 mmol/L (135-144) 12/05/23 11:44 Sodium 137 mmol/L (136-145) 12/06/23 05:44 POC Potassium 4.3 mmol/L (3.3-5.0) 12/05/23 11:44 Potassium 3.9 mmol/L (3.5-5.1) 12/06/23 05:44 POC Chloride 101 mmol/L (101-112) 12/05/23 11:44 Chloride 106 mmol/L (98-107) 12/06/23 05:44 Carbon Dioxide 27 mmol/L (21-32) 12/06/23 05:44 POC Total CO2 25 mmol/L (24-31) 12/05/23 11:44 Anion Gap 4 (3-11) 12/06/23 05:44 POC Anion Gap 19.0 mmol/L (16-25) 12/05/23 11:44 POC BUN 20 mg/dl (7-18) H 12/05/23 11:44 BUN 16 mg/dl (6-23) 12/06/23 05:44 Creatinine 0.88 mg/dl (0.6-1.4) 12/06/23 05:44 POC Creatinine 1.0 mg/dl (0.6-1.3) 12/05/23 11:44 Est Cr Clr Drug Dosing 69.1 ml/min 12/06/23 05:44 eGFR 86.93 12/06/23 05:44 BUN/Creatinine Ratio 18.2 (10-20) 12/06/23 05:44 Glucose 129 mg/dl (70-99(Fasting)) H 12/06/23 05:44 POC Glucose 97 mg/dl (70-99) 12/06/23 17:08 POC Glucose (other) 124 mg/dl (70-99) H 12/05/23 11:44 Estimat Average Glucose 134 mg/dl 12/06/23 05:44 Hemoglobin A1c 6.3 % (4.5-5.6) H 12/06/23 05:44 Calcium 9.0 mg/dl (8.6-10.3) 12/06/23 05:44 POC Ioniz Calcium Maria Eugenia 1.29 mmol/l (1.12-1.32) 12/05/23 11:44 Magnesium 1.8 mg/dl (1.7-2.4) 12/05/23 11:43 Troponin I High Sens 5.0 pg/ml (0-20) 12/05/23 13:45 Lipase 17 U/L (11-82) 12/05/23 11:43 Impressions Chest X-Ray 12/05/23 11:36 SINGLE VIEW CHEST CLINICAL HISTORY: Atypical chest pain FINDINGS: An AP, portable, upright chest radiograph is compared to study dated 08/16/2014. The heart is mildly enlarged. The pulmonary vasculature is noncongested. Chronic interstitial thickening is similar to previous. The lungs and pleural spaces are clear. No pneumothorax is seen. The skeletal structures are osteopenic. The bony thorax is grossly intact. Postsurgical changes seen in the left shoulder. Surgical clips project over the left lower neck. IMPRESSION: No active disease in the chest. ACT 112: Negative or not required by law. Electronically signed by: Geovany Patel M.D. 12/05/2023 11:50 AM Abdomen/Pelvis CTA 12/05/23 11:39 CT ANGIOGRAM OF THE CHEST COMBO; CT angiogram of the abdomen AND PELVIS CLINICAL HISTORY: Syncope. Epigastric abdominal pain. COMPARISON STUDY: Chest x-ray dated 12/05/2023. Abdominal CT dated 10/18/2009. TECHNIQUE: Unenhanced CT scan of the chest was performed. Subsequently, following the IV administration of 119 cc of Optiray 320, CT angiogram of the chest, abdomen, and pelvis was performed from the thoracic inlet to the proximal femora. Images are reviewed in the axial, sagittal, and coronal planes. 3-D MIPS images are created and assessed. IV contrast was administered without complication. A dose lowering technique was utilized adhering to the principles of ALARA. The examinations are degraded by streak artifact from the arms which could not be elevated above the chest or abdomen. CT DOSE: 2867.96 mGy.cm FINDINGS: CHEST: Thyroid: Imaged portions of the thyroid gland are normal in size and attenuation. Surgical clips are seen above the left thyroid lobe. Thoracic aorta: No intramural hematoma is seen on the unenhanced series. The thoracic aorta is normal in course and caliber. The aortic arch demonstrates standard 3-vessel anatomy. No dissection is seen. The arch vessels are widely patent. Pulmonary vasculature: The pulmonary trunk is normal in caliber. There are no filling defects identified in the main, lobar, or segmental pulmonary arteries to indicate pulmonary embolus. Heart: The heart is enlarged and without pericardial effusion. The coronary arteries are densely calcified. Lungs and pleural spaces: There is no airspace consolidation or pleural effusion. Mild subpleural reticulation is seen throughout both lungs with bibasilar scarring/atelectasis. The trachea and central airways are clear. There are scattered calcified granulomas. Mediastinum: There is no mediastinal lymphadenopathy. Tenisha: Mildly enlarged hilar nodes measure up to 14 mm short axis. These may be related to chronic lung disease. Axillae: There is no axillary lymphadenopathy. Bony thorax: The skeletal structures are osteopenic. Degenerative change and mild hyperkyphosis is noted in the thoracic spine. No lytic or blastic bony lesions are identified. Arthritic change is noted in the shoulders with pos tsurgical change seen on the left. ABDOMEN AND PELVIS: Liver: The contrast-enhanced liver is normal in size, contour, and attenuation. There is no intrahepatic biliary ductal dilatation. The main portal veins appear patent. Gallbladder: Surgically absent noting clips in the gallbladder fossa. Spleen: Normal in size and attenuation noting heterogeneous arterial phase enhancement. Pancreas: Moderately atrophic and grossly unremarkable. Adrenal glands: Unremarkable. Kidneys: The contrast enhanced kidneys demonstrate mild cortical atrophy and are without hydronephrosis. Renal sinus cysts are seen on the left. The kidneys enhance symmetrically. Abdominal aorta and iliac arteries: The abdominal aorta is normal in course and caliber noting moderate atherosclerotic calcification. No dissection is seen. The iliac arteries are widely patent bilaterally. 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 There is focal curvature of the celiac trunk and this may represent median arcuate ligament syndrome. This measures up to 1.3 cm in diameter. The superior mesenteric and inferior mesenteric arteries are widely patent. Hepatic arterial anatomy is conventional. The splenic artery is patent. 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 There are 2 left renal arteries and 3 right renal arteries. The renal arteries are patent bilaterally. Bowel: There is advanced colonic diverticulosis without CT evidence of acute diverticulitis. No bowel obstruction is seen. Moderate fecal retention is noted throughout the colon. The appendix is well-visualized and normal. Peritoneum: There is no intraperitoneal free air or abdominal ascites. There is a small fat-containing umbilical hernia. A 3 cm focus of fat necrosis is suggested in the right ventral abdominal wall. Lymphadenopathy: None. Pelvic viscera: The prostate gland is mildly enlarged and heterogeneous. The bladder wall appears thickened/trabeculated indicating chronic outlet obstruction. A 2.3 cm hutch diverticulum is seen on the right. There is evidence of previous right inguinal herniorrhaphy. Skeletal structures: The skeletal structures are osteopenic. There is moderate to advanced lumbosacral spondylosis. Degenerative sclerosis is noted in the sacroiliac joints. No lytic or blastic Lesions are seen. IMPRESSION: 1. Unremarkable CT angiogram of the thoracic aorta. 2. There is no evidence of pulmonary embolus in the main, lobar, or segmental pulmonary arteries. 3. Cardiomegaly. 4. There is no airspace consolidation or pleural effusion. 5. There is high-grade focal stenosis at the origin of the celiac trunk with poststenotic dilatation. The configuration suggests median arcuate ligament syndrome. 6. Otherwise unremarkable CT angiogram of the abdominal aorta and its major branches. 7. Advanced colonic diverticulosis without CT evidence of acute diverticulitis. 8. Additional findings as above. ACT 112: Negative or not required by law. Electronically signed by: Geovany Patel M.D. 12/05/2023 1:41 PM Chest CTA 12/05/23 11:39 CT ANGIOGRAM OF THE CHEST COMBO; CT angiogram of the abdomen AND PELVIS CLINICAL HISTORY: Syncope. Epigastric abdominal pain. COMPARISON STUDY: Chest x-ray dated 12/05/2023. Abdominal CT dated 10/18/2009. TECHNIQUE: Unenhanced CT scan of the chest was performed. Subsequently, following the IV administration of 119 cc of Optiray 320, CT angiogram of the chest, abdomen, and pelvis was performed from the thoracic inlet to the proximal femora. Images are reviewed in the axial, sagittal, and coronal planes. 3-D MIPS images are created and assessed. IV contrast was administered without complication. A dose lowering technique was utilized adhering to the principles of ALARA. The examinations are degraded by streak artifact from the arms which could not be elevated above the chest or abdomen. CT DOSE: 2867.96 mGy.cm FINDINGS: CHEST: Thyroid: Imaged portions of the thyroid gland are normal in size and attenuation. Surgical clips are seen above the left thyroid lobe. Thoracic aorta: No intramural hematoma is seen on the unenhanced series. The thoracic aorta is normal in course and caliber. The aortic arch demonstrates standard 3-vessel anatomy. No dissection is seen. The arch vessels are widely patent. Pulmonary vasculature: The pulmonary trunk is normal in caliber. There are no filling defects identified in the main, lobar, or segmental pulmonary arteries to indicate pulmonary embolus. Heart: The heart is enlarged and without pericardial effusion. The coronary arteries are densely calcified. Lungs and pleural spaces: There is no airspace consolidation or pleural effusion. Mild subpleural reticulation is seen throughout both lungs with bibasilar scarring/atelectasis. The trachea and central airways are clear. There are scattered calcified granulomas. Mediastinum: There is no mediastinal lymphadenopathy. Tenisha: Mildly enlarged hilar nodes measure up to 14 mm short axis. These may be related to chronic lung disease. Axillae: There is no axillary lymphadenopathy. Bony thorax: The skeletal structures are osteopenic. Degenerative change and mild hyperkyphosis is noted in the thoracic spine. No lytic or blastic bony lesi ons are identified. Arthritic change is noted in the shoulders with postsurgical change seen on the left. ABDOMEN AND PELVIS: Liver: The contrast-enhanced liver is normal in size, contour, and attenuation. There is no intrahepatic biliary ductal dilatation. The main portal veins appear patent. Gallbladder: Surgically absent noting clips in the gallbladder fossa. Spleen: Normal in size and attenuation noting heterogeneous arterial phase enhancement. Pancreas: Moderately atrophic and grossly unremarkable. Adrenal glands: Unremarkable. Kidneys: The contrast enhanced kidneys demonstrate mild cortical atrophy and are without hydronephrosis. Renal sinus cysts are seen on the left. The kidneys enhance symmetrically. Abdominal aorta and iliac arteries: The abdominal aorta is normal in course and caliber noting moderate atherosclerotic calcification. No dissection is seen. The iliac arteries are widely patent bilaterally. 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 There is focal curvature of the celiac trunk and this may represent median arcuate ligament syndrome. This measures up to 1.3 cm in diameter. The superior mesenteric and inferior mesenteric arteries are widely patent. Hepatic arterial anatomy is conventional. The splenic artery is patent. 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 There are 2 left renal arteries and 3 right renal arteries. The renal arteries are patent bilaterally. Bowel: There is advanced colonic diverticulosis without CT evidence of acute diverticulitis. No bowel obstruction is seen. Moderate fecal retention is noted throughout the colon. The appendix is well-visualized and normal. Peritoneum: There is no intraperitoneal free air or abdominal ascites. There is a small fat-containing umbilical hernia. A 3 cm focus of fat necrosis is suggested in the right ventral abdominal wall. Lymphadenopathy: None. Pelvic viscera: The prostate gland is mildly enlarged and heterogeneous. The bladder wall appears thickened/trabeculated indicating chronic outlet obstruction. A 2.3 cm hutch diverticulum is seen on the right. There is evidence of previous right inguinal herniorrhaphy. Skeletal structures: The skeletal structures are osteopenic. There is moderate to advanced lumbosacral spondylosis. Degenerative sclerosis is noted in the sacroiliac joints. No lytic or blastic Lesions are seen. IMPRESSION: 1. Unremarkable CT angiogram of the thoracic aorta. 2. There is no evidence of pulmonary embolus in the main, lobar, or segmental pulmonary arteries. 3. Cardiomegaly. 4. There is no airspace consolidation or pleural effusion. 5. There is high-grade focal stenosis at the origin of the celiac trunk with poststenotic dilatation. The configuration suggests median arcuate ligament syndrome. 6. Otherwise unremarkable CT angiogram of the abdominal aorta and its major br anches. 7. Advanced colonic diverticulosis without CT evidence of acute diverticulitis. 8. Additional findings as above. ACT 112: Negative or not required by law. Electronically signed by: Geovany Patel M.D. 12/05/2023 1:[address] 12/05/23 11:39 CT SCAN OF THE BRAIN WITHOUT IV CONTRAST CLINICAL HISTORY: Syncope COMPARISON STUDY: CT of the brain dated 10/27/2017. TECHNIQUE: Unenhanced axial CT scan of the brain is performed from the vertex to the skull base. A dose lowering technique was utilized adhering to the principles of ALARA. FINDINGS: Brain parenchyma: There is age-related involutional change noting moderate subcortical and periventricular microangiopathic disease. There is no hemorrhage, mass effect, or evidence of acute territorial ischemia by CT criteria. Jordan-white matter differentiation is preserved. No extra-axial fluid collection is seen. Ventricles, sulci, cisterns: Prominent secondary to involutional change. Intracranial vasculature: There is atherosclerotic calcification of the cavernous carotid arteries. Calvarium: Unremarkable. Sinuses and mastoids: The visualized paranasal sinuses are clear. The mastoid air cells are well pneumatized. Orbits: The bony orbits are grossly intact. IMPRESSION: There is no hemorrhage, mass effect, or evidence of acute territorial ischemia by CT criteria. ACT 112: Negative or not required by law. Electronically signed by: Geovany Patel M.D. 12/05/2023 12:18 PM Hospital Course (1) Syncope: (2) DM2 (diabetes mellitus, type 2): (3) Mood disorder: (4) Dementia: Plan Syncope/V-tach/HLD - Patient underwent syncope after severe abdominal pain with v-tach episode at [facility] - Possibly cardiogenic; most of patients symptoms resolved after PCI and cath - Patient does endorse mild abdominal pain, however unlike pain from syncopal event - Continue Rosuvastatin, DAPT on discharge - Will hold B-dontrell therapy for now as HR's have been 50-60 and regularly run low - Echocardiogram 12/05 wnl DM2 - a1c: 6.3 on 12/05 - glucose fluctuating between 120-130 - Safe to discharge today, recommend adjusting diabetes medications with pcp within next week Mood Disorder/Dementia - Reume Zoloft, Donepezil Total Time Total Time Spent Total Time Spent (In Minutes): 30 Total Time Includes: Examination of the Patient, Medication Reconciliation and Other Discharge Plan Discharge Items Patient Disposition: Home - Self-Care Reason For Visit: SYNCOPE Discharge Diagnosis: Syncope Activity: As commented below Activity Comment: No vigorous use of the right wrist or hand for 7 days Lifting: No more than 5 pounds Lifting Comment: No lifting greater than 5 pounds with the right hand or arm for 7 days Non-emergency contact: Primary Care Provider and [employer] Call non-emergency contact if: your symptoms worsen and your pain is not contr olled Follow-up/Referrals: uJly Brown MD [Primary Care Provider] - Diet: Regular Addtl Attending Provider Instructions: You were admitted to the hospital for syncope, abdominal pain, and v-tach. You were treated with coronary catheterization and successful PCI of a 70% ruptured plaque in the mid LAD. You will be discharged as your symptoms have now resolved with only mild abdominal pain remaining different in quality from the admitting event. You will be discharged on aspirin 81mg, Brilinta 90mg twice daily, and rosuvastatin 20 mg daily. More information about these medications will be highlighted below. A discharge summary will be sent to your primary care physician to ensure continuity of care. Please bring this discharge summary with you to your next office appointment so that your provider can review it at that time. Follow-up appointments: Make a follow-up appointment with your PCP within the next week. It is very important that you follow up with them shortly after discharge from the hospital. Medications: Your medication list has been reviewed and reconciled upon discharge to ensure accuracy and continuity of care. An updated list of all your medications is included with your hospital discharge paperwork. Please review this list closely, and make note of any changes. We sent a new medication called Brilinta to your pharmacy. Take Brilinta 90 mg one tablet TWICE per day We sent a new medication called Rosuvastatin to your pharmacy. Take Rosuvastatin 20 mg one tablet daily You should also take Aspirin 81 mg 1 tablet per day If you have any issues filling these prescriptions, please call [phone] and ask to leave a message for Dr. Tab Li. Take your medications as instructed; do not skip a dose of your medicines. Make sure all of your doctors know every medicine you are taking (including [id number] medicines, vitamins, and supplements). Call your primary care provider before taking any new medicines (including fjub-ugv-[id number] medicines, vitamins, and supplements), because some of these may interact with your current medications, or may make your symptoms worse. Tell your primary care provider if you cannot afford your medications. CONTACT YOUR PRIMARY CARE PROVIDER if you experience any of the following: Difficulty following your treatment plan, or difficulty taking medications CALL 911 OR GO TO THE EMERGENCY DEPARTMENT if you experience any of the following: Sudden, severe abdominal pain or nausea/vomiting Severe chest pain, or chest pain that radiates (moves) to your jaw or arm Sudden, severe shortness of breath or difficulty breathing Thank you for allowing us to participate in your care. Pending Studies at Discharge: No Stand-Alone Forms: My [facility], Smoking Cessation Medications and DC Order Prescriptions: New Brilinta 90 mg tablet 90 mg PO BID Qty: 90 1RF Rx Instructions: Take Brilinta 90 mg 1 tablet twice daily for a total of 180mg per day. rosuvastatin 20 mg tablet 20 mg PO DAILY Qty: 90 1RF Rx Instructions: Please take Rosuvastatin 20 mg 1 tablet daily Continued donepezil 10 mg tablet 10 mg PO BID Qty: 180 3RF sertraline 25 mg tablet 25 mg PO PM multivitamin Tablet 1 tab PO DAILY aspirin 81 mg Tablet,Delayed Release (Dr/Ec) 81 mg PO DAILY acetaminophen [Tylenol Extra Strength] 500 mg Tablet 1,000 mg PO Q8H PRN (Reason: Pain) lisinopril 5 mg Tablet 5 mg PO DAILY cholecalciferol (vitamin D3) [Vitamin D3] 1,000 unit Tablet 1,000 units PO DAILY omeprazole 40 mg capsule,delayed release(DR/EC) 40 mg PO BID glipizide 2.5 mg tablet extended release 24hr 2.5 mg PO HS Discontinued simvastatin 20 mg Tablet 20 mg PO HS Discharge Orders: Discharge Order (Routine); Ordered 12/06/23 Ordered By: Tab Fitzpatrick/Other Patient Handouts: Managing Type 2 Diabetes Admission Data Admit Date/Time: 12/05/23 16:23 Attending Provider: Corinne George Admit Provider: Pradip Donohue Primary Care Provider: July Brown Other Providers: Christos Foreman; Pradip Donohue Other Interventions: Discharge Summary Assessment (RN) Last Done: 12/06/23 18:19 Supervising Physician Co-Signing Physician Notes I personally examined the patient and verified vale points of history and exam, discussed case, and agree with decision making and plan documented by Dr. Li. Evaluated patient with daughter at bedside. He is status post catheterization with WANDY placement. Patient denies any chest pain or respiratory symptoms. He denies any pain or concerns. Patient has been evaluated by cardiology and recommended to be discharged on ASA 81 mg daily, ticagrelor 90 mg twice daily, and rosuvastatin 20 mg daily. He will follow-up outpatient with cardiology and PCP. Resident Activity Tracking Resident Involvement: Resident Care Provided Care Provided: Adult Hospital Medicine
[2023-12-06 18:06] VITALS: PULSE 67
[2023-12-06] MEDS: INFLUENZA VACC TS2024-25(65y+)/PF (IIV3) 0.5mL Syr IM ONE (18:45)
--- NOTE | 2023-12-07 11:32 | Electrocardiogram Report ---
Test Reason : Blood Pressure : */* mmHG Vent. Rate : 59 BPM Atrial Rate : 59 BPM P-R Int : 206 ms QRS Dur : 78 ms QT Int : 452 ms P-R-T Axes : 7 -37 98 degrees QTcB Int : 447 ms Sinus bradycardia Left axis deviation Nonspecific ST and T wave abnormality Abnormal ECG When compared with ECG of 05-Dec-2023 13:34, (unconfirmed) No significant change was found Confirmed by Kristopher Lutz ([id number]) on 12/07/2023 11:31:34 AM Referred By: REFERRED SELF Confirmed By: Kristopher Lutz
--- NOTE | 2023-12-07 11:32 | Electrocardiogram Report ---
Test Reason : Blood Pressure : */* mmHG Vent. Rate : 54 BPM Atrial Rate : 54 BPM P-R Int : 212 ms QRS Dur : 80 ms QT Int : 452 ms P-R-T Axes : 24 -38 103 degrees QTcB Int : 428 ms Sinus bradycardia with 1st degree A-V block Left axis deviation ST elevation consider inferior injury or acute infarct ACUTE CO / STEMI Consider right ventricular involvement in acute inferior infarct Abnormal ECG When compared with ECG of 05-Dec-2023 11:32, No significant change was found Confirmed by Kristopher Lutz ([id number]) on 12/07/2023 11:32:05 AM Referred By: REFERRED SELF Confirmed By: Kristopher Lutz
== END 2023-12-06 19:00 | disposition home or self-care (01) | DRG 322 ==
LOC: ED 11:25 → 4W 15:56 → SUATTDRO 16:23 → 4W 16:23

== ENCOUNTER 2024-04-13 23:30 | Observation (INO) ==
[2024-04-14 00:49] LABS: Basophils # (auto) 0.04 K/uL (0.00-0.20); Basophils % (auto) 0.2 %; Eosinophils # (auto) 0.06 K/uL (0.00-0.50); Eosinophils % (auto) 0.3 %; Hematocrit (blood only) 43.7 % (42.0-52.0); Hemoglobin 14.7 g/dl (14.0-18.0); Immature Granulocytes # (auto) 0.08 K/uL (0.01-0.20); Immature Granulocytes % (auto) 0.4 %; Lymphocytes # (auto) 0.94 K/uL (1.20-3.40); Lymphocytes % (auto) 5.2 %; Mean Corpuscular Hemoglobin 32.1 pg (25.0-34.0); Mean Corpuscular Hgb Conc 33.6 g/dL (32.0-36.0); Mean Corpuscular Volume 95.4 fL (80.0-100.0); Mean Platelet Volume 10.3 fL (9.4-12.4); Monocytes # (auto) 0.88 K/uL (0.11-0.59); Monocytes % (auto) 4.9 %; Neutrophils # (auto) 16.04 K/uL (1.40-6.50); Platelet Count 227 K/uL (130-400); RDW Coefficient of Variation 13.1 % (11.5-14.5); RDW Standard Deviation 45.8 fL (36.4-46.3); Red Blood Count 4.58 M/uL (4.70-6.10); White Blood Count 18.04 K/ul (4.8-10.8)
[2024-04-14 01:06] LABS: Albumin Globulin Ratio 1.2 (0.9-2); Albumin Level 4.1 gm/dl (3.4-5.0); BUN Creatinine Ratio 16.2 (10-20); Bilirubin,Total 0.5 mg/dl (0.2-1.0); Calcium 9.9 mg/dl (8.6-10.3); Creatinine Clr Calc Pharmacy 61.7 ml/min; Globulin 3.3 gm/dl (2.5-4.0); Magnesium 1.8 mg/dl (1.7-2.4); Potassium 4.2 mmol/L (3.5-5.1); Total Protein 7.4 gm/dl (6.0-8.3)
[2024-04-14 01:12] LABS: Troponin I High Sensitivity 5.7 pg/ml (0-20)
--- NOTE | 2024-04-14 02:05 | CT Scan Report ---
EXAM: CT head/brain wo con CLINICAL HISTORY: syncope; anticoag TECHNIQUE: Multiple axial images are obtained from the skull base to the vertex without contrast. CT scan was performed according to ALARA (as low as reasonable achievable). COMPARISON: dec 01 FINDINGS: There is cerebral atrophy. No evidence of space occupying lesion, hemorrhage, edema, mass effect, midline shift, extra axial collection, or hydrocephalus is noted. Basal cisterns are symmetric and normal in size and configuration. There are scattered periventricular hypodensities as can be seen with chronic microvascular ischemic changes. The hughes-white matter differentiation is preserved. Visualized paranasal sinuses and mastoid air cells are well aerated. Orbital contents are within normal limits. Bony structures are intact. IMPRESSION: 1. No evidence of acute intracranial abnormality is demonstrated. 2. Chronic microvascular ischemic changes. 3. Cerebral atrophy. No other new interval abnormality since prior study. Electronically signed by Aidan Lomeli 04-14-2024 02:05 AM
--- NOTE | 2024-04-14 02:12 | CT Scan Report ---
EXAM: CT cervical spine wo con CLINICAL HISTORY: fall TECHNIQUE: Computed tomography of the cervical spine performed without intravenous contrast. Contiguous axial images were obtained from the skull base to T2, with sagittal and coronal reformatted images reconstructed from the axial data. CT scan was performed according to ALARA (as low as reasonable achievable). COMPARISON: None. FINDINGS: Loss of cervical lordosis - suggest possibility of muscle spasm/positional. Degenerative changes involving cervical spine in the form of multilevel marginal osteophytes, disc space reduction and facetal arthrosis. Cervical vertebral bodies are normal in height and alignment, with no evidence of fracture or subluxation. Lateral masses of C1 are symmetrical, and the dens is intact. Prevertebral soft tissues are not widened. The remaining suprahyoid and infrahyoid soft tissues in the neck are unremarkable. Posterior uncovertebral arthrosis is noted at C3-C4 to C6-C7 levels, which indenting ventral thecal sac and causes bilateral neuroforaminal narrowing. Thyroid gland appears unremarkable. IMPRESSION: 1.No acute fracture or subluxation in the cervical spine. 2.Cervical spondylosis. Electronically signed by Aidan Lomeli 04-14-2024 02:12 AM
[2024-04-14 03:20] LABS: Troponin I High Sensitivity 5.7 pg/ml (0-20)
--- NOTE | 2024-04-14 04:40 | History & Physical Report ---
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 ED evaluation reveals leukocytosis 18.04, stable H&H, and WNL CMP; troponin found to be 5.7 x 2; cervical spine CT without acute findings, but does reveal cervical spondylosis; head CT without acute findings but does reveal chronic microvascular ischemic changes and cerebral atrophy. No interventions provided in ED. #Syncope H/o of syncopal event as reported by patient's ; was walking to bathroom wh en she suddenly heard a thud and patient was found with positive LOC, laying on ground with head propped on shower step, did have 1 episode of vomiting following episode. Patient with history of hypertension which is managed with lisinopril 5 mg, no change to dose and unlikely cause of episode. Patient is being followed with cardiology for same complaints of syncope. Episodes of syncope ongoing since 2018 while standing and with subsequent LOC. Prior episode requiring cardiac stenting in November of 2023. Loop recorder was implanted which seem to have been managing symptoms well per cardiology note 02/23/2024. Loop recorder interrogation during last cardiology visit revealed 2 cardiac pauses lasting 3 seconds each. - CBC with leukocytosis of 18.04, but otherwise all labs WNL with exception of glucose being 153; unclear source leukocytosis, pending UA, pending biofire, no URI/resp symptoms - CBC am - EKG sinus rhythm with PVC at a rate of 76 bpm; troponin WNL x 2; echo (11/2023) with normal findings and EF of 60 to 65%; pending repeat echo - Obtain recorder interrogation - CXR pending official read; cervical spine CT and head CT are without acute findings; pending carotid dopplers - Orthostatic vitals pending - PT/OT consulted placed - Cardiology consulted - appreciate input + recs #T2DM H/o DMT2; home regimen glipizide - Most recent A1C 11/2023 @ 6.8% - Deferred SSI at admission; continue home medications; adjust regimen as needed - BSG ACHS #HLD- Rosuvastatin #GERD- Omeprazole #Alzheimer's/Vascular dementia- Sertraline, donepezil Dispo: Admit, med/tele VTE prophylaxis: SCD This document was dictated utilizing [employer]. Please excuse any grammatical errors that may be secondary to use of this software. 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 Reportedly had agonal respirations and bradycardic as per EMS. Patient is a poor historian, daughter helps to provide history. had reported that the patient could walk to the bathroom when she suddenly heard a thud, and then found him laying on the ground with his head resting on a shower step. Reports that there was loss of consciousness. Reportedly had 1 episode of vomiting upon waking and complaining of pain in the middle of his back. Patient is on ticagrelor and aspirin. Most recent admission was November 2023 for STEMI requiring stent placement. Pt complains of mid-back pain but no additional symptoms; some nausea and does vomit during visit. No chest pain, SOB, palpitations, abdominal pain, D/C, fever/chills, or weakness as stated per patient however, cognitive state may impact responses. Patient continues to ask when he is going "over there" pointing to the wall, and asks about leaving denominational. He is redirected and told he is in the hospital. ED evaluation reveals leukocytosis 18.04, stable H&H, and WNL CMP; troponin found to be 5.7 x 2; cervical spine CT without acute findings, but does reveal cervical spondylosis; head CT without acute findings but does reveal chronic microvascular ischemic changes and cerebral atrophy. No interventions provided in ED. Please see Dr. Ordoñez's attestation for adjustments/additions to treatment plan. Allergies Allergy/AdvReac Type Severity Reaction Status Date / Time No Known Allergies Allergy Verified 02/23/24 14:36 Home Medications Medication Instructions Recorded Confirmed Type acetaminophen 500 mg tablet 1,000 mg PO Q8H PRN Pain 10/17/17 02/23/24 History (Tylenol Extra Strength) aspirin 81 mg tablet,delayed 81 mg PO DAILY 09/09/18 01/15/25 History release cholecalciferol (vitamin D3) 25 1,000 units PO DAILY 10/17/17 02/23/24 History mcg (1,000 unit) tablet (Vitamin D3) lisinopril 5 mg tablet 5 mg PO DAILY 10/17/17 02/23/24 History multivitamin 1 tab PO DAILY 10/17/17 02/23/24 History omeprazole 40 mg capsule,delayed 40 mg PO BID 04/30/21 02/23/24 History release sertraline 25 mg tablet 25 mg PO PM 04/30/21 02/23/24 History donepezil 10 mg tablet 10 mg PO BID #180 tabs 07/06/23 02/23/24 Rx glipizide 2.5 mg tablet, extended 2.5 mg PO HS 12/05/23 02/23/24 History release 24 hr rosuvastatin 20 mg tablet 20 mg PO DAILY LAD ruptured plaque 12/06/23 02/23/24 Rx #90 tabs ticagrelor 90 mg tablet (Brilinta) 90 mg PO BID ruptured plaque in 12/16/23 Rx LAD #90 tabs Past Med/Surg History Problem List (Updated 04/14/24 @ 04:49 by Pebbles Jo DO) Syncope (Acute) Syncope and collapse Presence of drug-eluting stent in anterior descending branch of left coronary artery Encounter for interrogation of cardiac recorder CAD (coronary artery disease) Cardiac syncope Ischemic heart disease due to coronary artery obstruction Syncope V-tach (Acute) 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) Idiopathic peripheral neuropathy (Acute) Small vessel disease, cerebrovascular (Acute) History of knee replacement procedure of left knee History of knee replacement procedure of right knee High blood pressure (Chronic) Abdominal pain (Acute) Left knee DJD Right knee DJD Medical History Mood disorder DM2 (diabetes mellitus, type 2) Syncope Hyperlipidemia Mixed Alzheimer's and vascular dementia Diabetes Dementia Hypertension Inguinal hernia Diabetes Actinic keratosis Surgical History H/O right inguinal hernia repair Hx of cholecystectomy Family History Brother Diabetes Hypertension Sister Diabetes Hypertension Other No pertinent family history Social History Smoking Status: Never smoker Hx Alcohol Use: No Hx Substance Use: No Preferred Language: Montserratian Communication Ability: Impaired Film Inspector Required: No Beliefs That Will Affect Care: None Current Living Situation: Spouse and Family Feels Safe at Home: Yes Assistive Devices: None Review of Systems Review of Systems: All systems reviewed & are unremarkable except as noted in Subjective Physical Exam Physical Exam: General: No acute distress Skin: Warm and dry Head: Normocephalic, atraumatic Eyes: PERRL, conjunctivae clear, sclera non-icteric ENT: External ear and ear canal without swelling; nose atraumatic; good dentition, tongue normal appearance, pharynx normal Neck: Supple, no LAD; no JVD Cardio: RRR, no M/G/R, S1 and S2 normal Resp: No respiratory distress, Lungs CTA in all lobes bilaterally, no wheezes, rales, or rhonchi Abdomen: Soft, symmetric, nontender; No masses or hepatosplenomegaly; Bowel sounds normoactive; 1 episode of emesis during visit. MSK: No deformities, full ROM throughout; pulses palpable and equal; no edema. Neuro: Awake, alert; CN grossly intact Psych: Appropriate mood and affect Daughter is present in room at time of visit. Results & Data Results & Data Vital Signs (Past 12 Hours) Vital Signs Temp Pulse Pulse Resp BP BP Pulse Ox 04/14/24 04:00 90 17 119/66 95 04/14/24 03:39 89 04/14/24 02:00 84 17 131/69 97 04/14/24 00:32 74 17 96 04/14/24 00:04 71 17 114/58 L 98 04/13/24 23:42 75 16 117/78 98 04/13/24 23:41 73 04/13/24 23:40 36.7 C 73 18 117/78 98 O2 Del Method 04/14/24 04:00 Room Air 04/14/24 03:39 04/14/24 02:00 Room Air 04/14/24 00:32 Room Air 04/14/24 00:04 Room Air 04/13/24 23:42 Room Air 04/13/24 23:41 04/13/24 23:40 Room Air Laboratory Results 04/14/24 04/14/24 02:28 00:32 WBC 18.04 H RBC 4.58 L Hgb 14.7 Hct 43.7 MCV 95.4 MCH 32.1 MCHC 33.6 RDW Std Deviation 45.8 RDW Coeff of Aruna 13.1 Plt Count 227 MPV 10.3 Immature Gran % (Auto) 0.4 Neut % (Auto) 89.0 Lymph % (Auto) 5.2 Tripp % (Auto) 4.9 Eos % (Auto) 0.3 Baso % (Auto) 0.2 Neut # (Auto) 16.04 H Lymph # (Auto) 0.94 L Tripp # (Auto) 0.88 H Eos # (Auto) 0.06 Baso # (Auto) 0.04 Immature Gran # (Auto) 0.08 Sodium 141 Potassium 4.2 Chloride 106 Carbon Dioxide 28 Anion Gap 7 BUN 17 Creatinine 1.05 Est Cr Clr Drug Dosing 61.7 eGFR 71.31 BUN/Creatinine Ratio 16.2 Glucose 153 H Calcium 9.9 Magnesium 1.8 Total Bilirubin 0.5 AST 26 ALT 29 Alkaline Phosphatase 100 Troponin I High Sens 5.7 5.7 Total Protein 7.4 Albumin 4.1 Globulin 3.3 Albumin/Globulin Ratio 1.2 Diagnostic Findings Cervical Spine CT 04/14/24 00:32 EXAM: CT cervical spine wo con CLINICAL HISTORY: fall TECHNIQUE: Computed tomography of the cervical spine performed without intravenous contrast. Contiguous axial images were obtained from the skull base to T2, with sagittal and coronal reformatted images reconstructed from the axial data. CT scan was performed according to ALARA (as low as reasonable achievable). COMPARISON: None. FINDINGS: Loss of cervical lordosis - suggest possibility of muscle spasm/positional. Degenerative changes involving cervical spine in the form of multilevel marginal osteophytes, disc space reduction and facetal arthrosis. Cervical vertebral bodies are normal in height and alignment, with no evidence of fracture or subluxation. Lateral masses of C1 are symmetrical, and the dens is intact. Prevertebral soft tissues are not widened. The remaining suprahyoid and infrahyoid soft tissues in the neck are unremarkable. Posterior uncovertebral arthrosis is noted at C3-C4 to C6-C7 levels, which indenting ventral thecal sac and causes bilateral neuroforaminal narrowing. Thyroid gland appears unremarkable. IMPRESSION: 1.No acute fracture or subluxation in the cervical spine. 2.Cervical spondylosis. Electronically signed by Aidan Lomeli 04-14-2024 02:[address] 04/14/24 00:32 EXAM: CT head/brain wo con CLINICAL HISTORY: syncope; anticoag TECHNIQUE: Multiple axial images are obtained from the skull base to the vertex without contrast. CT scan was performed according to ALARA (as low as reasonable achievable). COMPARISON: dec 01 FINDINGS: There is cerebral atrophy. No evidence of space occupying lesion, hemorrhage, edema, mass effect, midline shift, extra axial collection, or hydrocephalus is noted. Basal cisterns are symmetric and normal in size and configuration. There are scattered periventricular hypodensities as can be seen with chronic microvascular ischemic changes. The hughes-white matter differentiation is preserved. Visualized paranasal sinuses and mastoid air cells are well aerated. Orbital contents are within normal limits. Bony structures are intact. IMPRESSION: 1. No evidence of acute intracranial abnormality is demonstrated. 2. Chronic microvascular ischemic changes. 3. Cerebral atrophy. No other new interval abnormality since prior study. Electronically signed by Aidan Lomeli 04-14-2024 02:05 AM ECG Additional Comments: Sinus rhythm with PVCs 76 bpm, NM 202, QRS 80, QT/QTc 392/441, PRT 54/-28/83 Code Status & VTE Plan Code Status DNR/DNI As per daughter (states she confirmed with her mother, the patient's ) PG Care Time/CCT Total # of Minutes Spent Total Time Spent with Patient: Total time spent is greater than 50% in coordination of care (as documented) at patient's floor/unit and/or counseling patient: Coding Level of Care Code 65665 INT INP/OBS CARE 3/75MIN Diagnoses Syncope and collapse R55
--- NOTE | 2024-04-14 04:49 | Emergency Department Note ---
Impression & Plan Syncope admit to the [facility] ED Provider Note NAME: ROBERTO LOMELI AGE: 79 SEX: Male INFORMANT: Patient's daughter ED PROVIDER(S): Pebbles Jo DO CHIEF COMPLAINT: syncope PLAN: Disposition: admit to the [facility] MEDICAL DECISION MAKING: this is an 79-year-old male patient who presents to the emergency department from home after syncopal event. Much of the history is obtained from the patient's daughter who is a nurse and is at the bedside. The patient's heard a thud in the bathroom and found the patient passed out in the shower. There were no outward signs of trauma but the patient had an altered mental status and then began to vomit. Once the patient regained consciousness, he was insistent upon getting up to the toilet to have a bowel movement. He had another episode of unresponsiveness and then vomiting. The patient does have a loop recorder in place since the fall 2023 when he had a previous episode of syncope. The patient currently takes Brilinta and aspirin and his only complaint is of back pain after this episode. CT scan of the brain and cervical spine were negative for acute trauma. Laboratory studies revealed moderate leukocytosis with a white count of 1818.0. H&H were stable. Glucose was 153. troponin was 5.7 and a repeat was exactly the same. Urinalysis was positive for 1+ ketones but no signs of infection. I examined the patient's back and he had no focal reproducible pain on exam. He did describe some discomfort in his back with movement in the bed. I remain concerned about this patient's 2 significant episodes of syncope and vomiting at home. I believe his loop recorder will require interrogation and evaluation by cardiology. Care/management discussed with: global sourcing manager and [facility] Triage Nursing notes: reviewed and agree with them. Vital Signs: reviewed and unremarkable Additional History obtained from: patient's and daughter who are at the bedside Chronic Medical/Social Conditions affecting care: dementia Differential Diagnosis: cardiac dysrhythmia, seizure, syncope, CVA, TIA, head injury, C-spine injury, T-spine injury Diagnostics, independently interpreted by me: ECG: Normal sinus rhythm at a rate of 76 with PVCs. There is no ST segment elevation or signs of ischemia. Cardiac Monitoring: normal sinus rhythm at a rate of 90 Imaging studies: CT scan of the brain: As per [facility] CT scan of the cervical spine: As per [facility] HPI: 79 year old Male arrives for evaluation of syncope. The patient's heard a thud in the bathroom and found the patient passed out in the shower. There were no outward signs of trauma but the patient had an altered mental status and then began to vomit. Once the patient regained consciousness, he was insistent upon getting up to the toilet to have a bowel movement. He had another episode of unresponsiveness and then vomiting. PAST MEDICAL HISTORY: See Below, PAST SURGICAL HISTORY: See Below, SOCIAL HISTORY: See Below, HOME MEDICATIONS: See list ALLERGIES: none VITALS: see below PHYSICAL EXAMINATION: HEENT: Head - normocephalic and atraumatic. Pupils are equal, round, and reactive to light. Extraocular eye muscles are intact, and sclera are anicteric. Nose - moist nasal mucosa without discharge. Mouth - moist buccal mucosa. Oropharynx is nonerythematous and there is no tonsillar exudate or edema noted. Neck: Supple; no Pain to palpation over the posterior cervical spine Heart: Regular rate and rhythm. There is a normal S1 and S2 with no murmurs, clicks, or gallops appreciated. Lungs: Clear to auscultation bilaterally with no wheezes, rales, or rhonchi. Abdomen: Soft, completely nontender, nondistended, with good bowel sounds. There are no palpable pulsatile masses or hepatosplenomegaly. There is no guarding, rigidity, or rebound noted. Extremities: No evidence of cyanosis, clubbing, or edema. There are easily palpable peripheral pulses. Skin: warm and dry with good turgor and no rashes. Emergency Department course: The patient was evaluated in room B-6. A complete history and physical was performed. An order was placed for continuous cardiac monitoring. The patient was in a normal sinus rhythm at a rate of 90. Twelve- lead EKG was obtained as described above. Patient had a CT scan of the brain and cervical spine. A repeat troponin was performed. I discussed the case with the [facility] Hospitalist and they will evaluate for further inpatient care. 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) Idiopathic peripheral neuropathy (Acute) Small vessel disease, cerebrovascular (Acute) History of knee replacement procedure of left knee History of knee replacement procedure of right knee High blood pressure (Chronic) Abdominal pain (Acute) Left knee DJD Right knee DJD Medical History Mood disorder DM2 (diabetes mellitus, type 2) Syncope Hyperlipidemia Mixed Alzheimer's and vascular dementia Diabetes Dementia Hypertension Inguinal hernia Diabetes Actinic keratosis Surgical History H/O right inguinal hernia repair Hx of cholecystectomy Family History Brother Diabetes Hypertension Sister Diabetes Hypertension Other No pertinent family history Social History Smoking Status: Never smoker Hx Alcohol Use: No Hx Substance Use: No Preferred Language: Malagasy Communication Ability: Impaired Eligibility Analyst Required: No Beliefs That Will Affect Care: None Current Living Situation: Spouse and Family Feels Safe at Home: Yes Assistive Devices: None Allergies Allergies Allergy/AdvReac Type Severity Reaction Status Date / Time No Known Allergies Allergy Verified 02/23/24 14:36 Home Meds Home Medications Medication Instructions Recorded Confirmed acetaminophen 500 mg tablet 1,000 mg PO Q8H PRN Pain 10/17/17 02/23/24 (Tylenol Extra Strength) aspirin 81 mg tablet,delayed 81 mg PO DAILY 10/17/17 02/23/24 release cholecalciferol (vitamin D3) 25 1,000 units PO DAILY 10/17/17 02/23/24 mcg (1,000 unit) tablet (Vitamin D3) lisinopril 5 mg tablet 5 mg PO DAILY 10/17/17 02/23/24 multivitamin 1 tab PO DAILY 10/17/17 02/23/24 omeprazole 40 mg capsule,delayed 40 mg PO BID 04/30/21 02/23/24 release sertraline 25 mg tablet 25 mg PO PM 04/30/21 02/23/24 glipizide 2.5 mg tablet, extended 2.5 mg PO HS 12/05/23 02/23/24 release 24 hr Previous Rx's Medication Instructions Recorded donepezil 10 mg tablet 10 mg PO BID #180 tabs 07/06/23 rosuvastatin 20 mg tablet 20 mg PO DAILY LAD ruptured plaque 12/06/23 #90 tabs ticagrelor 90 mg tablet (Brilinta) 90 mg PO BID ruptured plaque in 12/16/23 LAD #90 tabs Results & Data (ED) Vital Signs Vital Signs - 24 hr 04/13/24 23:40 04/13/24 23:41 04/13/24 23:42 Temperature 36.7 C Temperature Source Axillary Pulse Rate 73 73 75 Pulse Rate [Apical] Pulse Rate from SpO2 Sensor 79 Pulse Rhythm Pulse Rhythm [Apical] Respiratory Rate 18 16 Respiratory Effort / Characteristics Respiratory Depth Normal Respiratory Pattern Blood Pressure 117/78 117/78 Blood Pressure [Right Arm] Blood Pressure Mean 91 91 Blood Pressure Mean [Right Arm] Pulse Oximetry 98 98 Oxygen Delivery Method Room Air Room Air Sepsis Recent Fever Within 48 Hours No Sepsis New/Unexplained Change in Mental Status No Sepsis Action Taken by Nursing No Action Required 04/14/24 00:00 04/14/24 00:04 04/14/24 00:24 Temperature Temperature Source Pulse Rate 86 Pulse Rate [Apical] 71 Pulse Rate from SpO2 Sensor 87 Pulse Rhythm Pulse Rhythm [Apical] Regular Respiratory Rate 17 17 Respiratory Effort / Characteristics Non-Labored Spontaneous Respiratory Depth Normal Respiratory Pattern Regular Blood Pressure 114/58 L 131/61 Blood Pressure [Right Arm] 114/58 L Blood Pressure Mean 76 76 Blood Pressure Mean [Right Arm] 76 Pulse Oximetry 98 98 Oxygen Delivery Method Room Air Room Air Sepsis Recent Fever Within 48 Hours Sepsis New/Unexplained Change in Mental Status Sepsis Action Taken by Nursing 04/14/24 00:30 04/14/24 00:32 04/14/24 01:00 Temperature Temperature Source Pulse Rate 66 74 74 Pulse Rate [Apical] Pulse Rate from SpO2 Sensor 69 74 Pulse Rhythm Regular Pulse Rhythm [Apical] Respiratory Rate 15 17 14 Respiratory Effort / Characteristics Respiratory Depth Respiratory Pattern Blood Pressure 126/71 136/73 Blood Pressure [Right Arm] Blood Pressure Mean 89 94 Blood Pressure Mean [Right Arm] Pulse Oximetry 99 96 95 Oxygen Delivery Method Room Air Sepsis Recent Fever Within 48 Hours Sepsis New/Unexplained Change in Mental Status Sepsis Action Taken by Nursing 04/14/24 01:30 04/14/24 02:00 04/14/24 02:00 Temperature Temperature Source Pulse Rate 74 78 Pulse Rate [Apical] 84 Pulse Rate from SpO2 Sensor 73 Pulse Rhythm Pulse Rhythm [Apical] Regular Respiratory Rate 14 17 16 Respiratory Effort / Characteristics Non-Labored Spontaneous Respiratory Depth Normal Respiratory Pattern Regular Blood Pressure 135/63 131/69 Blood Pressure [Right Arm] 131/69 Blood Pressure Mean 108 89 Blood Pressure Mean [Right Arm] 89 Pulse Oximetry 95 97 97 Oxygen Delivery Method Room Air Room Air Room Air Sepsis Recent Fever Within 48 Hours Sepsis New/Unexplained Change in Mental Status Sepsis Action Taken by Nursing 04/14/24 02:31 04/14/24 03:00 04/14/24 03:30 Temperature Temperature Source Pulse Rate 79 91 H 86 Pulse Rate [Apical] Pulse Rate from SpO2 Sensor 80 89 86 Pulse Rhythm Pulse Rhythm [Apical] Respiratory Rate 13 20 14 Respiratory Effort / Characteristics Respiratory Depth Respiratory Pattern Blood Pressure 140/67 124/59 L 123/74 Blood Pressure [Right Arm] Blood Pressure Mean 79 80 90 Blood Pressure Mean [Right Arm] Pulse Oximetry 95 95 95 Oxygen Delivery Method Room Air Room Air Room Air Sepsis Recent Fever Within 48 Hours Sepsis New/Unexplained Change in Mental Status Sepsis Action Taken by Nursing 04/14/24 03:39 04/14/24 04:00 04/14/24 04:00 Temperature Temperature Source Pulse Rate 89 97 H Pulse Rate [Apical] 90 Pulse Rate from SpO2 Sensor 94 H Pulse Rhythm Pulse Rhythm [Apical] Regular Respiratory Rate 17 15 Respiratory Effort / Characteristics Non-Labored Spontaneous Respiratory Depth Normal Respiratory Pattern Regular Blood Pressure 119/66 Blood Pressure [Right Arm] 119/66 Blood Pressure Mean 89 Blood Pressure Mean [Right Arm] 83 Pulse Oximetry 95 94 Oxygen Delivery Method Room Air Room Air Sepsis Recent Fever Within 48 Hours Sepsis New/Unexplained Change in Mental Status Sepsis Action Taken by Nursing Laboratory Data 04/14/24 00:32 04/14/24 00:32 Lab Results 04/14/24 04/14/24 Range/Units 00:32 02:28 WBC 18.04 H (4.8-10.8) K/ul RBC 4.58 L (4.70-6.10) M/uL Hgb 14.7 (14.0-18.0) g/dl Hct 43.7 (42.0-52.0) % MCV 95.4 (80.0-100.0) fL MCH 32.1 (25.0-34.0) pg MCHC 33.6 (32.0-36.0) g/dL RDW Std Deviation 45.8 (36.4-46.3) fL RDW Coeff of Aruna 13.1 (11.5-14.5) % Plt Count 227 (130-400) K/uL MPV 10.3 (9.4-12.4) fL Immature Gran % (Auto) 0.4 % Neut % (Auto) 89.0 % Lymph % (Auto) 5.2 % Carolina % (Auto) 4.9 % Eos % (Auto) 0.3 % Baso % (Auto) 0.2 % Neut # (Auto) 16.04 H (1.40-6.50) K/uL Lymph # (Auto) 0.94 L (1.20-3.40) K/uL Carolina # (Auto) 0.88 H (0.11-0.59) K/uL Eos # (Auto) 0.06 (0.00-0.50) K/uL Baso # (Auto) 0.04 (0.00-0.20) K/uL Immature Gran # (Auto) 0.08 (0.01-0.20) K/uL Sodium 141 (136-145) mmol/L Potassium 4.2 (3.5-5.1) mmol/L Chloride 106 (98-107) mmol/L Carbon Dioxide 28 (21-32) mmol/L Anion Gap 7 (3-11) BUN 17 (6-23) mg/dl Creatinine 1.05 (0.6-1.4) mg/dl Est Cr Clr Drug Dosing 61.7 ml/min eGFR 71.31 BUN/Creatinine Ratio 16.2 (10-20) Glucose 153 H (70-99(Fasting)) mg/dl Calcium 9.9 (8.6-10.3) mg/dl Magnesium 1.8 (1.7-2.4) mg/dl Total Bilirubin 0.5 (0.2-1.0) mg/dl AST 26 (13-39) U/L ALT 29 (7-52) U/L Alkaline Phosphatase 100 (34-104) U/L Troponin I High Sens 5.7 5.7 (0-20) pg/ml Total Protein 7.4 (6.0-8.3) gm/dl Albumin 4.1 (3.4-5.0) gm/dl Globulin 3.3 (2.5-4.0) gm/dl Albumin/Globulin Ratio 1.2 (0.9-2) Administered Medications Discontinued Medications Acetaminophen (Acetaminophen 500 Mg Tab) 1,000 mg PO NOW STA Stop: 04/14/24 05:26 Last Admin: 04/14/24 06:21 Dose: 1,000 mg Documented By: COLE Ondansetron HCl (Ondansetron Inj 2 Mg/Ml 2 Ml Vial) 4 mg IV NOW STA Stop: 04/14/24 05:26 Last Admin: 04/14/24 06:21 Dose: 4 mg Documented By: COLE Imaging Data Radiologist's Impression: Cervical Spine CT 04/14/24 00:32 EXAM: CT cervical spine wo con CLINICAL HISTORY: fall TECHNIQUE: Computed tomography of the cervical spine performed without intravenous contrast. Contiguous axial images were obtained from the skull base to T2, with sagittal and coronal reformatted images reconstructed from the axial data. CT scan was performed according to ALARA (as low as reasonable achievable). COMPARISON: None. FINDINGS: Loss of cervical lordosis - suggest possibility of muscle spasm/positional. Degenerative changes involving cervical spine in the form of multilevel marginal osteophytes, disc space reduction and facetal arthrosis. Cervical vertebral bodies are normal in height and alignment, with no evidence of fracture or subluxation. Lateral masses of C1 are symmetrical, and the dens is intact. Prevertebral soft tissues are not widened. The remaining suprahyoid and infrahyoid soft tissues in the neck are unremarkable. Posterior uncovertebral arthrosis is noted at C3-C4 to C6-C7 levels, which indenting ventral thecal sac and causes bilateral neuroforaminal narrowing. Thyroid gland appears unremarkable. IMPRESSION: 1.No acute fracture or subluxation in the cervical spine. 2.Cervical spondylosis. Electronically signed by Aidan Lomeli 04-14-2024 02:[address] 04/14/24 00:32 EXAM: CT head/brain wo con CLINICAL HISTORY: syncope; anticoag TECHNIQUE: Multiple axial images are obtained from the skull base to the vertex without contrast. CT scan was performed according to ALARA (as low as reasonable achievable). COMPARISON: dec 01 FINDINGS: There is cerebral atrophy. No evidence of space occupying lesion, hemorrhage, edema, mass effect, midline shift, extra axial collection, or hydrocephalus is noted. Basal cisterns are symmetric and normal in size and configuration. There are scattered periventricular hypodensities as can be seen with chronic microvascular ischemic changes. The hughes-white matter differentiation is preserved. Visualized paranasal sinuses and mastoid air cells are well aerated. Orbital contents are within normal limits. Bony structures are intact. IMPRESSION: 1. No evidence of acute intracranial abnormality is demonstrated. 2. Chronic microvascular ischemic changes. 3. Cerebral atrophy. No other new interval abnormality since prior study. Electronically signed by Aidan Lomeli 04-14-2024 02:05 AM Discharge Plan Visit Data Chief Complaint: Syncope Stated Complaint: Syncope x2, Chest Pain ED Provider: Pebbles Jo Discharge Problem: Syncope Patient Disposition: Admitted As Inpatient Discharge Instructions Interventions: ED Discharge Assessment Last Done: 04/14/24 05:30
[2024-04-14] MEDS ORDERED: POLYETHYLENE (MIRALAX) 17 GM PACK PO PRN (05:30)
[2024-04-14] MEDS ORDERED: ONDANSETRON INJ 2 MG/ML 2 ML VIAL IV PRN (05:30)
[2024-04-14] MEDS: ACETAMINOPHEN 500 MG TAB PO STA (06:21)
[2024-04-14] MEDS: ONDANSETRON INJ 2 MG/ML 2 ML VIAL IV STA (06:21)
[2024-04-14 06:42] LABS: Appearance Urine Clear (Clear); Bacteria Urine Automated None Seen (None Seen); Bilirubin Urine Negative (Negative); Blood Urine Negative (Negative); Color Urine Yellow; Epithelial Cell Urine Auto 0-2 /hpf (0-2); Glucose Urine UA Negative (Negative); Ketones Urine 1+ (Negative); Leukocyte Esterase Urine Negative (Negative); Nitrite Urine Negative (Negative); Protein Urine Trace (Negative); RBC Urine Automated 0-2 /hpf (0-2); Specific Gravity Urine 1.026 (1.000-1.030); Urobilinogen Urine Negative (Negative); WBC Urine Automated 0-5 /hpf (0-5)
--- NOTE | 2024-04-14 07:21 | XRay Report ---
EXAM: XR chest 1V portable CLINICAL HISTORY: Syncope. TECHNIQUE: An X-ray image of the chest is obtained in AP projection. COMPARISON: 02/08/2024, 12/05/2023 FINDINGS: Pulmonary Parenchyma: Hyperinflated bilateral lung harrison Questionable haziness in the bilateral lower zone, especially in the region of the costophrenic angle on the left side, likely due to the overlying soft tissues Lungs are clear bilaterally. No evidence of consolidation, collapse, or focal opacities. No pulmonary nodules are identified. No evidence of pleural effusion or pleural thickening. Heart and Mediastinum: Cardiac loop recorder noted Heart size and shape are normal. No mediastinal widening or masses. No hilar or mediastinal lymphadenopathy. Bony Thorax: The bony thorax appears intact without fractures or deformities. Degenerative changes involving the bones Metal anchors were noted over the left humerus. Soft Tissues: Soft tissues overlying the chest wall are unremarkable. IMPRESSION: 1. Questionable haziness in the bilateral lower zone, especially in the region of the costophrenic angle on the left side, likely due to the overlying soft tissues. 2. Otherwise no definite consolidation, cavitation and pleural effusion. 3. Advise clinical and lab correlation. Electronically signed by Stanford Carlos 04-14-2024 07:21 AM
--- NOTE | 2024-04-14 07:26 | Electrocardiogram Report ---
Test Reason : Blood Pressure : */* mmHG Vent. Rate : 76 BPM Atrial Rate : 76 BPM P-R Int : 202 ms QRS Dur : 80 ms QT Int : 392 ms P-R-T Axes : 54 -28 83 degrees QTcB Int : 441 ms Sinus rhythm with occasional Premature ventricular complexes Otherwise normal ECG When compared with ECG of 05-Dec-2023 15:31, Premature ventricular complexes are now Present Confirmed by Eamon Lee ([id number]) on 04/14/2024 7:25:42 AM Referred By: REFERRED SELF Confirmed By: Eamon Lee
--- NOTE | 2024-04-14 08:34 | XCELERA ---
[id number]
--- NOTE | 2024-04-14 09:16 | CT Scan Report ---
CT OF THE CHEST WITHOUT IV CONTRAST CLINICAL HISTORY: Fall. COMPARISON STUDY: Chest CT February 08, 2024. Chest radiograph performed earlier today. CT DOSE: 663.83 mGy.cm TECHNIQUE: Axial images of the chest were obtained without IV contrast. Images were reviewed in the axial, sagittal, and coronal planes. IV contrast was not administered for this examination. Automat ed exposure control was utilized for the study. A dose lowering technique was utilized adhering to t he principles of ALARA. FINDINGS: Thoracic aorta is suboptimally assessed on unenhanced exam but there is no mediastinal hem atoma. Mild cardiomegaly and moderate coronary artery calcification are again noted. Prominent medias tinal lymph nodes are unchanged. These are likely benign. There is no pneumothorax or pleural effusio n. No pulmonary contusion is present. Several small calcified and noncalcified pulmonary nodules are unchanged. These are likely benign. Subpleural ground glass opacities favor atelectasis. No acute rib or thoracic spine fractures are present. IMPRESSION: 1. No acute traumatic findings within the chest. 2. No change in appearance of the chest since prior CT. ACT 112: Negative or not required by law. Electronically signed by: Magdiel Saucedo M.D. 04/14/2024 9:13 AM
[2024-04-14 09:31] LABS: T4 Free Thyroxine 0.79 ng/dl (0.61-1.60)
--- NOTE | 2024-04-14 10:25 | Ultrasound Report ---
CAROTID ARTERY ULTRASOUND CLINICAL HISTORY: Syncope COMPARISON STUDY: None TECHNIQUE: Real-time, grayscale, and color Doppler sonography of the carotid and vertebral arteries w as performed. Images were viewed in the transverse and longitudinal planes. FINDINGS: There is atherosclerotic plaque at the carotid bulbs bilaterally, right greater than left. Velocity at the right carotid bulb is 357 cm/s consistent with at least 70% narrowing. No significant narrowing seen on the left. Vertebral arteries are patent bilaterally. IMPRESSION: At least 70% narrowing right carotid bulb. ACT 112: Positive. There are findings on this exam that require communication between the performing entity and the patient following Patient Test Result Information Act ([place] Act 112) guidelines. Electronically signed by: Mason Butler M.D. 04/14/2024 10:23 AM
[2024-04-14] MEDS: HEPARIN SOD 5,000 UNIT/0.5 ML VIAL SQ SCH (10:33)
[2024-04-14] MEDS: traMADol HCL 50 MG TABLET PO STA (10:34)
--- NOTE | 2024-04-14 11:35 | Cardiology Consultation ---
Date of Consultation April 14, 2024 Assessment & Plan (1) Syncope: (2) CAD (coronary artery disease): (3) Presence of drug-eluting stent in anterior descending branch of left coronary artery: (4) Mixed Alzheimer's and vascular dementia: Plan 79-year-old man with dementia and CAD (drug-eluting stent LAD November 2023) who has been experiencing recurrent syncope with prolonged unresponsiveness. Although loop recorder showed no dysrhythmia, abrupt drop in heart rate which temporally correlates with the timing of his syncope strongly suggestive of high vagal tone, likely vasovagal syncope with significant vasodepressive component. As such, benefits of pacemaker would likely be limited, but could be future consideration if further episodes occur. Would recommend discontinue lisinopril to allow more hemodynamic reserve, even to the point of permissive hypertension if necessary. Would also recommend discontinue donepezil, since this can contribute to relative bradycardia and also blunt the hemodynamic response to vasovagal syncope. His carotid disease is unlikely etiology for syncope, but could contribute to prolonged unresponsiveness after an episode of hypoperfusion from vasovagal syncope. Could consider head/neck CT angiogram to further evaluate, but would first determine whether aggressive therapy with intervention is desired in patient with advanced age and dementia. Continue on telemetry overnight, if no further symptoms and no dysrhythmia or pauses, could likely be discharged home tomorrow off both lisinopril and donepezil. History of Present Illness Reason for Consultation: Syncope/collapse/LOC, loop rec Requesting Physician: Griffin Lam MD Attending Physician: Griffin Lam MD History of Present Illness 79-year-old man with history of ventricular tachycardia (in context of ruptured LAD plaque for which he underwent successful PCI), unexplained syncope 2017 and November 2023, and mixed Alzheimer's and vascular dementia, who was admitted this morning after another syncopal episode. Cardiac history notable for admission November 2023 with syncope and a brief run of ventricular tachycardia, cardiac catheterization showed 70% mid LAD lesion that appeared to have a ruptured plaque, drug-eluting stent placed. Echocardiogram showed normal LV function and no wall motion abnormalities. He had had a prior episode of syncope in 2018 while standing, subsequent prolonged loss of consciousness. Due to recurrent syncope which was not clearly due to ventricular dysrhythmia, he had a loop recorder placed December 2023. Subsequent interrogations have shown only 2 brief pauses (3 seconds) which were asymptomatic. Last evening, patient's heard a thud and found him lying on the ground in the bathroom. He had several minutes of unresponsiveness, his activated the loop recorder about 4 minutes after onset of syncope. Patient's daughter (nurse) arrived, patient insisted on sitting in a chair, but he subsequently developed vomiting and then urgency to defecate. When EMS arrived, he had another syncopal episode with unresponsiveness, rhythm uncertain. Interrogation of loop recorder for the 15 minutes prior to the patient's activating it showed sinus rhythm with no significant ectopy or dysrhythmias. However, 4 minutes prior to activation of the loop recorder (around the time of his syncope) his heart rate abruptly dropped from 100 bpm to 60 bpm and remained in this range. There were apparently no subsequent dysrhythmias, as the loop recorder did not demonstrate any other findings. Cardiac findings: ECG showed sinus rhythm with occasional PVCs, otherwise unremarkable. Echocardiogram showed normal LV systolic function and wall motion, mild LVH with grade 1 diastolic dysfunction, no significant valvular disease. Troponin values 5.7 and 5.7. Telemetry showed sinus rhythm with occasional PVCs. Patient is followed from a neurologic standpoint by Dr. Richmond, he has a diagnosis of mixed Alzheimer's/vascular dementia and been on donepezil for some time and briefly tried memantine but did not tolerate this. At the time of my evaluation this morning, he complained of some mild back pain but had no other somatic complaints. He specifically denied lightheadedness, palpitations, dyspnea, or chest pain. Allergies Allergy/AdvReac Type Severity Reaction Status Date / Time No Known Allergies Allergy Verified 04/14/24 08:15 Home Medications Medication Instructions Recorded Confirmed Type aspirin 81 mg tablet,delayed 81 mg PO DAILY 10/17/17 04/14/24 History release cholecalciferol (vitamin D3) 25 1,000 units PO DAILY 10/17/17 04/14/24 History mcg (1,000 unit) tablet (Vitamin D3) lisinopril 5 mg tablet 5 mg PO DAILY 10/17/17 04/14/24 History multivitamin 1 tab PO DAILY 10/17/17 04/14/24 History omeprazole 40 mg capsule,delayed 40 mg PO BID 04/30/21 04/14/24 History release sertraline 25 mg tablet 25 mg PO PM 04/30/21 04/14/24 History donepezil 10 mg tablet 10 mg PO BID #180 tabs 07/06/23 04/14/24 Rx glipizide 2.5 mg tablet, extended 2.5 mg PO HS 12/05/23 04/14/24 History release 24 hr rosuvastatin 20 mg tablet 20 mg PO DAILY LAD ruptured plaque 12/06/23 04/14/24 Rx #90 tabs ticagrelor 90 mg tablet (Brilinta) 90 mg PO BID ruptured plaque in 12/16/23 04/14/24 Rx LAD #90 tabs Lactobacillus acidophilus 10 10,000 mmu cells PO DAILY 04/14/24 04/14/24 History billion cell capsule (Probiotic) acetaminophen 650 mg 1,300 mg PO AMPM 04/14/24 04/14/24 History tablet,extended release ascorbic acid (vitamin C) 1,000 mg 1 g PO DAILY 04/14/24 04/14/24 History tablet (Vitamin C) levocetirizine 5 mg tablet (Xyzal) 5 mg PO DAILY 04/14/24 04/14/24 History Patient History Medical History Impotence, organic Former smoker Allergic contact dermatitis Mood disorder DM2 (diabetes mellitus, type 2) Syncope Hyperlipidemia Mixed Alzheimer's and vascular dementia Diabetes Dementia Hypertension Inguinal hernia Diabetes Actinic keratosis Surgical History H/O right inguinal hernia repair Hx of cholecystectomy Family History Brother Diabetes Hypertension Sister Diabetes Hypertension Other No pertinent family history Social History Smoking Status: Never smoker Hx Alcohol Use: No Hx Substance Use: No Preferred Language: Uzbek Communication Ability: Impaired Dental Chairside Assistant Required: No Beliefs That Will Affect Care: None Current Living Situation: Spouse and Family Feels Safe at Home: Yes Assistive Devices: None Physical Exam Physical Exam: Elderly white male in no distress. Afebrile. BP normotensive. Pulse 78 bpm and regular. Respirations 12 and unlabored. Skin: no ecchymoses or generalized lesions. HEENT: unremarkable. Neck: JVP at the clavicle at 90 degrees, no carotid bruits. Lungs: clear. Cardiac: regular rhythm, normal S1-2, no murmur. Abdomen: benign. Extremities: no edema, pulses intact. Neurologic: Simple affect, limited insight, grossly nonfocal. Results & Data Laboratory Results WBC 18.04, normal hemoglobin and platelet count. Normal electrolytes, BUN 17, creatinine 1.05. Troponin as per HPI Diagnostic Findings Chest x-ray generally unremarkable. Carotid ultrasound showed at least 70% narrowing of right carotid bulb. Chest CT (no contrast) was unremarkable. Echo/ECG as per HPI. PG Care Time/CCT Total # of Minutes Spent Total Time Spent with Patient: Total time spent is greater than 50% in coordination of care (as documented) at patient's floor/unit and/or counseling patient: Coding Level of Care Code 33122 IN/OBS CONSULT LVL 4,60M Diagnoses Syncope R55 Coronary artery disease involving [place] coronary artery of [place] heart without angina pectoris I25.10 Coronary Disease-Associated Artery/Lesion type: [place] artery [place] vs. transplanted heart: [place] heart Associated angina: without angina Presence of drug-eluting stent in anterior descending branch of left coronary artery Z95.5 Mixed Alzheimer's and vascular dementia G30.9; F01.50; F02.80 (2) CAD (coronary artery disease) Coronary Disease-Associated Artery/Lesion type: [place] artery [place] vs. transplanted heart: [place] heart Associated angina: without angina Qualified Code(s): I25.10 - Atherosclerotic heart disease of [place] coronary artery without angina pectoris
--- NOTE | 2024-04-14 13:30 | Hospitalist Progress Note ---
Date of Service April 14, 2024 Assessment & Plan (1) Syncope and collapse: Plan: Probably from underlying sick sinus syndrome and cardiac standstill. Cardiology consultation and recommendations noted. Lisinopril and donepezil have been discontinued. Telemetry. Supportive care (2) CAD (coronary artery disease): Plan: History of PCI. Currently stable. Continue current medical management. (3) Type 2 diabetes mellitus: Plan: ADA diet. Sliding scale coverage as needed. Glipizide should be discontinued in this age group (4) Essential hypertension: Plan: Stable. Continue current medical management (5) Dementia: Plan: Supportive care. Donepezil has been discontinued per cardiology request Plan Hopeful discharge to home tomorrow, April 14 Admission and Anticipated Discharge Date Admission Date: April 14, 2024 Subjective The patient is awake and alert. He has chronic back pain and tramadol has been administered. Cardiology consultation noted. Lisinopril and donepezil have been discontinued. Thyroid profile is normal. I suspect his syncopal episodes have been caused by underlying sick sinus syndrome and occasional cardiac standstill. He may need a permanent cardiac pacemaker in the near future. Cardiac echo reveals normal left ventricular ejection fraction with mild LVH and diastolic dysfunction. Chest CT scan reveals no new findings. Carotid ultrasound reveals 70% stenosis of the right carotid bulb which does not need intervention at this time. His loop recorder apparently has revealed several pauses of at least 3 seconds duration. Review of Systems 2 Review of Systems: The patient has baseline dementia and cannot reliably answer any questions regarding review of systems at this time Physical Exam 2 Physical Exam: General-alert but disoriented. No fever HEENT-head atraumatic and normocephalic, pupils equal and reactive to light, extraocular muscles intact Neck-no lymphadenopathy or thyromegaly, trachea midline Chest-clear to auscultation. No rales, wheezing or rhonchi Cardiac-regular rate and rhythm, normal S1 and S2 Abdomen-normal bowel sounds, no hepatosplenomegaly Extremities-no cyanosis, clubbing, or edema Neuro-cranial nerves II through XII intact, motor and sensory function within normal limits, strength symmetrical, no focal deficits Psych-baseline dementia and confusion Results & Data Results & Data Vital Signs (Past 12 Hours) Vital Signs Pulse Pulse Resp BP BP Pulse Ox O2 Del Method 04/14/24 07:19 93 Room Air 04/14/24 07:17 78 12 139/76 93 Room Air 04/14/24 07:09 80 04/14/24 05:40 38 L 04/14/24 05:30 85 17 140/77 97 Room Air 04/14/24 05:30 85 17 97 Room Air 04/14/24 04:00 97 H 15 119/66 94 Room Air 04/14/24 04:00 90 17 119/66 95 Room Air 04/14/24 03:39 89 04/14/24 03:30 86 14 123/74 95 Room Air 04/14/24 03:00 91 H 20 124/59 L 95 Room Air 04/14/24 02:31 79 13 140/67 95 Room Air 04/14/24 02:00 78 16 131/69 97 Room Air 04/14/24 02:00 84 17 131/69 97 Room Air 04/14/24 01:30 74 14 135/63 95 Room Air Laboratory Results 04/14/24 00:32 04/14/24 00:32 PG Care Time/CCT Total # of Minutes Spent Total Time Spent with Patient: Total time spent is greater than 50% in coordination of care (as documented) at patient's floor/unit and/or counseling patient: Coding Level of Care Code 21969 SUB INP/OBS CARE 3/50MIN Diagnoses Syncope and collapse R55 Coronary artery disease involving [place] coronary artery of [place] heart without angina pectoris I25.10 Coronary Disease-Associated Artery/Lesion type: [place] artery [place] vs. transplanted heart: [place] heart Associated angina: without angina Type 2 diabetes mellitus E11.9 Essential hypertension I10 Dementia F03.90 (2) CAD (coronary artery disease) Coronary Disease-Associated Artery/Lesion type: [place] artery [place] vs. transplanted heart: [place] heart Associated angina: without angina Qualified Code(s): I25.10 - Atherosclerotic heart disease of [place] coronary artery without angina pectoris
[2024-04-14] MEDS: ONDANSETRON INJ 2 MG/ML 2 ML VIAL IV SCH (15:17)
[2024-04-14] MEDS: traMADol HCL 50 MG TABLET PO PRN (20:46)
[2024-04-15 06:28] LABS: Hemoglobin 12.3 g/dl (14.0-18.0); Mean Corpuscular Hgb Conc 34.2 g/dL (32.0-36.0); Mean Corpuscular Volume 93.8 fL (80.0-100.0); Platelet Count 181 K/uL (130-400); RDW Standard Deviation 44.7 fL (36.4-46.3); Red Blood Count 3.84 M/uL (4.70-6.10); White Blood Count 6.11 K/ul (4.8-10.8)
[2024-04-15 06:47] LABS: BUN Creatinine Ratio 23.4 (10-20); Calcium 8.4 mg/dl (8.6-10.3); Creatinine Clr Calc Pharmacy 84.1 ml/min; Potassium 3.8 mmol/L (3.5-5.1)
[2024-04-15] MEDS: ACETAMINOPHEN 325 MG TAB PO PRN (08:53)
[2024-04-15] MEDS: PSYLLIUM or GUAR GUM FIBER 4GM PACKET PO SCH (11:18)
--- NOTE | 2024-04-15 11:31 | Hospitalist Progress Note ---
Date of Service April 15, 2024 Assessment & Plan (1) Syncope and collapse: Plan: Probably from underlying sick sinus syndrome and cardiac standstill. Cardiology consultation and recommendations noted. Lisinopril and donepezil have been discontinued. Telemetry. Supportive care (2) Diarrhea: Plan: Acute on chronic. Usual home medications have been restarted. No overt melena or hematochezia. Stool BioFire ordered and pending. Metamucil twice daily has been added to add bulk and slow frequency and volume of stools (3) CAD (coronary artery disease): Plan: History of PCI. Currently stable. Continue current medical management. (4) Type 2 diabetes mellitus: Plan: ADA diet. Sliding scale coverage as needed. Glipizide should be discontinued in this age group (5) Essential hypertension: Plan: Stable. Continue current medical management (6) Dementia: Plan: Supportive care. Donepezil has been discontinued per cardiology request Plan Anticipate discharge to home once stable Admission and Anticipated Discharge Date Admission Date: April 14, 2024 Subjective Alert but chronically confused with dementia. Daughters at the bedside. He currently has watery diarrhea which she has had in the [facility]. Multiple home medications have been reordered. Stool BioFire ordered and pending. Metamucil added twice daily to help add bulk. Cardiology will see the patient again today and review telemetry strips. Lisinopril and donepezil have been discontinued. His loop recorder did record a 3-second pause. He may end up needing a permanent pacemaker placed. Review of Systems 2 Review of Systems: The patient has baseline dementia and cannot reliably answer any questions regarding review of systems at this time Physical Exam 2 Physical Exam: General-alert but disoriented. No fever HEENT-head atraumatic and normocephalic, pupils equal and reactive to light, extraocular muscles intact Neck-no lymphadenopathy or thyromegaly, trachea midline Chest-clear to auscultation. No rales, wheezing or rhonchi Cardiac-regular rate and rhythm, normal S1 and S2 Abdomen-normal bowel sounds, no hepatosplenomegaly. He is having multiple loose stools. No overt melena or hematochezia Extremities-no cyanosis, clubbing, or edema Neuro-cranial nerves II through XII intact, motor and sensory function within normal limits, strength symmetrical, no focal deficits Psych-baseline dementia and confusion Results & Data Results & Data Vital Signs (Past 12 Hours) Vital Signs Temp Pulse Pulse Resp BP Pulse Ox O2 Del Method 04/15/24 08:00 36.5 C 77 22 131/75 94 Room Air 04/15/24 07:32 63 04/15/24 00:20 36.5 C 80 20 120/68 93 Room Air Laboratory Results 04/15/24 06:02 04/15/24 06:02 PG Care Time/CCT Total # of Minutes Spent Total Time Spent with Patient: Total time spent is greater than 50% in coordination of care (as documented) at patient's floor/unit and/or counseling patient: Coding Level of Care Code 00110 SUB INP/OBS CARE 3/50MIN Diagnoses Syncope and collapse R55 Diarrhea R19.7 Coronary artery disease involving [place] coronary artery of [place] heart without angina pectoris I25.10 Coronary Disease-Associated Artery/Lesion type: [place] artery [place] vs. transplanted heart: [place] heart Associated angina: without angina Type 2 diabetes mellitus E11.9 Essential hypertension I10 Dementia F03.90 (3) CAD (coronary artery disease) Coronary Disease-Associated Artery/Lesion type: [place] artery [place] vs. transplanted heart: [place] heart Associated angina: without angina Qualified Code(s): I25.10 - Atherosclerotic heart disease of [place] coronary artery without angina pectoris
[2024-04-15] MEDS: ASPIRIN 81 MG ECTAB PO SCH (12:18)
[2024-04-15] MEDS: ADVANCED PROBIOTIC 625 MG CAPSULE PO SCH (12:18)
[2024-04-15] MEDS: COLESTIPOL HCL 1 GM TAB PO SCH (12:19)
[2024-04-15] MEDS: PANTOprazole 40 MG TAB PO SCH (12:19)
--- NOTE | 2024-04-15 13:02 | Cardiology Progress Note ---
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 Syncope: Initially felt to be vasovagal. Difficult to obtain history due to patient's poor memory/dementia. Has not had any significant pause on telemetry while hospitalized. Had brief 2-1 AV block during typical sleeping hours on 04/14/2024 but it was very short-lived, less than 30 seconds, and without significant pause. He had no further AV block noted since then. Donezepil has been discontinued. Lisinopril has been discontinued to allow for poor reserve from a blood pressure standpoint. No obvious indication for pacemaker at this time. Can continue to monitor with a loop recorder and follow-up closely with his outpatient edge runner. 2. CAD s/p LAD PCI: No angina. Continue aspirin 81 mg daily and Brilinta from his PCI on 12/05/2023. Continue high intensity statin therapy. 3. 2-1 AV block: Brief on the electrician apprentice powerhouse hours of 04/14/2024 without recurrence since upon telemetry review. There has not been any significant pause. Has loop recorder in place to monitor for more significant pause or persistent advanced AV block.Donepezil has since been discontinued. 4. Disposition: Follow-up in the outpatient cardiology office with his edge runner, Dr. Perez. Patient care communicated with primary hospitalist, Dr. Lam. Please call with any further questions or concerns. Cardiology will otherwise sign off for now. Admission and Anticipated Discharge Date Admission Date: April 14, 2024 Subjective Patient seen earlier this afternoon. He denies chest pain, shortness of breath, syncope, edema, or bleeding. He is a poor historian however. His only complaint is back pain which was noted by the nursing staff to be present throughout the hospital stay. His ocean clam boat captain was seated at the bedside. Physical Exam Physical Exam: Gen.: No acute distress. Alert. HEENT: Anicteric sclera. Neck: No JVD. Cardiac: Regular. Normal S1-S2. No murmurs, rubs, or gallops. Pulmonary: Clear to auscultation bilaterally without wheezes, rales, or rhonchi. Abdomen: Soft, nontender, nondistended, with normoactive bowel sounds. No bruits noted. Extremities: 2+ radial pulses bilaterally. 1+ dorsales pedis pulses bilaterally. Trace right pedal edema. No cyanosis. Results & Data Vital Signs (Past 12 Hours) Vital Signs Temp Pulse Pulse Resp BP Pulse Ox O2 Del Method 04/15/24 12:00 36.5 C 66 20 128/68 97 Room Air 04/15/24 08:00 36.5 C 77 22 131/75 94 Room Air 04/15/24 07:32 63 Laboratory Results Laboratory Results - last 24 hr 04/15/24 06:02 WBC 6.11 RBC 3.84 L Hgb 12.3 L Hct 36.0 L MCV 93.8 MCH 32.0 MCHC 34.2 RDW Std Deviation 44.7 RDW Coeff of Aruna 13.0 Plt Count 181 MPV 10.0 Sodium 141 Potassium 3.8 Chloride 109 H Carbon Dioxide 26 Anion Gap 6 BUN 18 Creatinine 0.77 Est Cr Clr Drug Dosing 84.1 eGFR 89.94 BUN/Creatinine Ratio 23.4 H Glucose 119 H Calcium 8.4 L Diagnostic Findings Telemetry personally reviewed: He had very brief 2-1 AV block in the electrician apprentice powerhouse hours of 04/14/[address] Lee and yesterday's consultation. He has not had any further block and has not had any significant pause. The 2-1 AV block that was noted, was less than 30 seconds in duration. In the past 24 hours, sinus rhythm with normal heart rates. No arrhythmia. ECG personally reviewed 04/13/2024: Sinus rhythm with PVCs 76 bpm. Echo report reviewed 04/14/2024: Normal LV size, wall motion, systolic function. EF 55-60%. No significant valvular abnormalities. Chart reviewed. Labs reviewed from 04/15/2024: Mild anemia, stable renal function, normal potassium. Medications Administered Current Inpatient Medications Acetaminophen (Acetaminophen 325 Mg Tab) 650 mg PO Q4H PRN PRN Reason: Pain or Fever Stop: 05/14/24 05:29 Last Admin: 04/15/24 08:53 Dose: 650 mg Aspirin (Aspirin 81 Mg Ectab) 81 mg PO [place] Stop: 05/15/24 10:49 Last Admin: 04/15/24 12:18 Dose: 81 mg Colestipol HCl (Colestipol Hcl 1 Gm Tab) 1 gm PO DAILY [facility] Stop: 05/15/24 12:29 Last Admin: 04/15/24 12:19 Dose: 1 gm Heparin Sodium (Porcine) (Heparin Sod 5,000 Unit/0.5 Ml Vial) 5,000 units SQ Q12 [facility] Stop: 05/14/24 08:59 Last Admin: 04/15/24 08:53 Dose: 5,000 units Lactobacillus Acidophilus (Advanced Probiotic 625 Mg Capsule) 1,250 mg PO DAILY [facility] Stop: 05/15/24 10:54 Last Admin: 04/15/24 12:18 Dose: 1,250 mg Melatonin (Melatonin 3 Mg Tab) 3 mg PO HS PRN PRN Reason: Sleep Stop: 05/14/24 05:29 Multivitamins (Multivitamin Tab) 1 tab PO QAM [facility] Stop: 05/16/24 08:59 Ondansetron HCl (Ondansetron Inj 2 Mg/Ml 2 Ml Vial) 4 mg IV Q6H [facility] Stop: 05/14/24 11:59 Last Admin: 04/15/24 12:21 Dose: 4 mg Ondansetron HCl (Ondansetron Inj 2 Mg/Ml 2 Ml Vial) 4 mg IV Q6H PRN PRN Reason: Nausea Stop: 05/14/24 05:29 Pantoprazole Sodium (Pantoprazole 40 Mg Tab) 40 mg PO BID [facility] Stop: 05/15/24 10:49 Last Admin: 04/15/24 12:19 Dose: 40 mg Polyethylene Glycol (Polyethylene (Miralax) 17 Gm Pack) 17 gm PO DAILY PRN PRN Reason: Constipation Stop: 05/14/24 05:29 Psyllium Hydrophilic Mucilloid (Psyllium Or Guar Gum Fiber 4gm Packet) 4 gm PO BID [facility] Stop: 05/15/24 09:29 Last Admin: 04/15/24 11:18 Dose: 4 gm Sertraline HCl (Sertraline Hcl 50 Mg Tablet) 25 mg PO HS [facility] Stop: 05/15/24 20:59 Ticagrelor (Ticagrelor 90 Mg Tab) 90 mg PO BID [facility] Stop: 05/15/24 20:59 Tramadol HCl (Tramadol Hcl 50 Mg Tablet) 50 mg PO Q6H PRN PRN Reason: Pain Stop: 05/14/24 10:11 Last Admin: 04/15/24 12:18 Dose: 50 mg Vitamin D (Cholecalciferol 25 Mcg (1000 Units) Tab) 25 mcg PO QAM [facility] Stop: 05/16/24 08:59 PG Care Time/CCT Total # of Minutes Spent Total Time Spent with Patient: Total time spent is greater than 50% in coordination of care (as documented) at patient's floor/unit and/or counseling patient: Coding Level of Care Code 10873 SUB INP/OBS CARE 3/50MIN Diagnoses Syncope and collapse R55 Coronary artery disease involving [place] coronary artery of [place] heart without angina pectoris I25.10 Coronary Disease-Associated Artery/Lesion type: [place] artery [place] vs. transplanted heart: [place] heart Associated angina: without angina Presence of drug-eluting stent in anterior descending branch of left coronary artery Z95.5 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 block I44.1 (2) CAD (coronary artery disease) Coronary Disease-Associated Artery/Lesion type: [place] artery [place] vs. tr ansplanted heart: [place] heart Associated angina: without angina Qualified Code(s): I25.10 - Atherosclerotic heart disease of [place] coronary artery without angina pectoris
[2024-04-15] MEDS ORDERED: MoRPHine SULFATE 2 MG/ML CARP IV PRN (17:26)
[2024-04-15] MEDS: MoRPHine SULFATE 2 MG/ML CARP IV STA (17:36)
--- NOTE | 2024-04-15 18:36 | XRay Report ---
HISTORY: Fall with upper back pain. TECHNIQUE: Thoracic spine, 4 views. COMPARISON: None FINDINGS: Evaluation of the upper thoracic spine is limited on the lateral and swimmers projections due to overlapping structures. Thoracic spine alignment is maintained. The vertebral body heights are maintained. Mild multilevel degenerative disc disease. Flowing anterior bridging osteophytosis spanning more than 4 consecutive levels suggesting diffuse idiopathic skeletal hyperostosis (DISH). The included lungs/ribs appear unremarkable. Right upper quadrant surgical clips. IMPRESSION: 1. No acute osseous abnormality. 2. Mild multilevel degenerative disc disease. 3. Findings suggesting DISH. Electronically signed by Curt Ni 04-15-2024 6:35 PM
[2024-04-15] MEDS: SERTRALINE HCL 50 MG TABLET PO SCH (20:36)
[2024-04-15] MEDS: MELATONIN 3 MG TAB PO PRN (20:37)
[2024-04-15] MEDS: TICAGRELOR 90 MG TAB PO SCH (20:46)
[2024-04-16 05:35] VITALS: O2SAT 94
[2024-04-16 06:23] LABS: Hematocrit (blood only) 35.9 % (42.0-52.0); Hemoglobin 12.3 g/dl (14.0-18.0); Mean Corpuscular Hemoglobin 31.9 pg (25.0-34.0); Mean Corpuscular Hgb Conc 34.3 g/dL (32.0-36.0); Mean Corpuscular Volume 93.2 fL (80.0-100.0); Mean Platelet Volume 10.2 fL (9.4-12.4); Platelet Count 155 K/uL (130-400); RDW Coefficient of Variation 13.1 % (11.5-14.5); RDW Standard Deviation 44.5 fL (36.4-46.3); Red Blood Count 3.85 M/uL (4.70-6.10); White Blood Count 5.43 K/ul (4.8-10.8)
[2024-04-16 06:59] LABS: BUN Creatinine Ratio 22.1 (10-20); Calcium 8.4 mg/dl (8.6-10.3); Creatinine Clr Calc Pharmacy 95.2 ml/min; Potassium 3.7 mmol/L (3.5-5.1)
[2024-04-16 08:06] VITALS: BP 118/72; RESP 20; TEMP 98.2
[2024-04-16] MEDS: CHOLECALCIFEROL 25 MCG (1000 UNITS) TAB PO SCH (08:35)
[2024-04-16] MEDS: MULTIVITAMIN TAB PO SCH (08:35)
--- NOTE | 2024-04-16 10:34 | Discharge Summary ---
Discharge Summary Date of Service April 16, 2024 Principal Dx & Hospital Course #1 = Principal Diagnosis (1) Syncope and collapse: Probably from underlying sick sinus syndrome and cardiac standstill. Cardiology consultation and recommendations noted. Lisinopril and donepezil have been discontinued. Telemetry. Supportive care (2) Diarrhea: Acute on chronic. Usual home medications have been restarted. No overt melena or hematochezia. Stool BioFire ordered and pending. Metamucil twice daily has been added to add bulk and slow frequency and volume of stools (3) CAD (coronary artery disease): History of PCI. Currently stable. Continue current medical management. (4) Type 2 diabetes mellitus: ADA diet. Sliding scale coverage as needed. Glipizide should be discontinued in this age group (5) Essential hypertension: Stable. Continue current medical management (6) Dementia: Supportive care. 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 Reportedly had agonal respirations and bradycardic as per EMS. Patient is a poor historian, daughter helps to provide history. had reported that the patient could walk to the bathroom when she suddenly heard a thud, and then found him laying on the ground with his head resting on a shower step. Reports that there was loss of consciousness. Reportedly had 1 episode of vomiting upon waking and complaining of pain in the middle of his back. Patient is on ticagrelor and aspirin. Most recent admission was November 2023 for STEMI requiring stent placement. Pt complains of mid-back pain but no additional symptoms; some nausea and does vomit during visit. No chest pain, SOB, palpitations, abdominal pain, D/C, fever/chills, or weakness as stated per patient however, cognitive state may impact responses. Patient continues to ask when he is going "over there" pointing to the wall, and asks about leaving confucianist. He is redirected and told he is in the hospital. ED evaluation reveals leukocytosis 18.04, stable H&H, and WNL CMP; troponin found to be 5.7 x 2; cervical spine CT without acute findings, but does reveal cervical spondylosis; head CT without acute findings but does reveal chronic microvascular ischemic changes and cerebral atrophy. No interventions provided in ED. Please see Dr. Ordoñez's attestation for adjustments/additions to treatment plan. Discharge Exam GENERAL APPEARANCE NAD, activity normal for age, well developed/ well nourished, no cyanosis, pallor, or diaphoresis. EYES lids/conjunctiva normal. EARS/NOSE/THROAT Mucous membranes moist, nares normal, lips/teeth normal uvula midline without oral pharyngeal erythema, exudate or swelling TMs normal bilaterally. No lymphangitis/lymphedema. HEAD/NECK normocephalic atraumatic, no facial trauma, neck is supple. RESPIRATORY respiratory effort normal, speaks in full sentences, no tripod position, no accessory muscle use. Lungs clear to auscultation without rhonchi, wheezes, rales CARDIAC Regular rate and rhythm, no edema. ABDOMINAL Soft, ND/NT. No evidence of fluid wave. No pulsatile masses on exam, rebound tenderness, Leon sign or pain over Mcburney's point. MUSCLES/EXTREMITIES No abnormal range of motion, no swelling. SKIN Warm, pink and dry. No rashes, dermatoses, petechiae or lesions. NEUROLOGICAL Speech is clear and appropriate. Normal level of consciousness. Gait and coordination are normal. 5/5 strength in all extremities. PSYCH Normal mood and affect. Judgement/competence is appropriate Discharge Plan Discharge Items Patient Disposition: Home - Self-Care Reason For Visit: SYNCOPE / COLLAPSE Discharge Diagnosis: Syncope Activity: Resume your previous activity Non-emergency contact: Primary Care Provider Call non-emergency contact if: you have any medication questions Follow-up/Referrals: July Brown MD [Primary Care Provider] - Diet: Regular Addtl Attending Provider Instructions: Follow up with PMD in 1 week Pending Studies at Discharge: No Stand-Alone Forms: My [employer], Smoking Cessation Medications and DC Order Prescriptions: Continued donepezil 10 mg tablet 10 mg PO BID Qty: 180 3RF sertraline 25 mg tablet 25 mg PO PM Brilinta 90 mg tablet 90 mg PO BID Qty: 90 1RF Rx Instructions: Take Brilinta 90 mg 1 tablet twice daily for a total of 180mg per day. multivitamin Tablet 1 tab PO DAILY aspirin 81 mg Tablet,Delayed Release (Dr/Ec) 81 mg PO DAILY cholecalciferol (vitamin D3) [Vitamin D3] 1,000 unit Tablet 1,000 units PO DAILY omeprazole 40 mg capsule,delayed release(DR/EC) 40 mg PO BID ascorbic acid (vitamin C) [Vitamin C] 1,000 mg Tablet 1 g PO DAILY acetaminophen 650 mg Tablet Extended Release 1,300 mg PO AMPM levocetirizine [Xyzal] 5 mg Tablet 5 mg PO DAILY Probiotic 10 billion cell Capsule 10,000 mmu cells PO DAILY glipizide 2.5 mg tablet extended release 24hr 2.5 mg PO HS Rx Instructions: Per daughter/caregiver, the patient takes an additional 2.5mg tablet by mouth IF he eats a sugary snack. rosuvastatin 20 mg tablet 20 mg PO DAILY Qty: 90 1RF Rx Instructions: Please take Rosuvastatin 20 mg 1 tablet daily Discontinued lisinopril 5 mg Tablet 5 mg PO DAILY Discharge Orders: Discharge Order (Routine); Ordered 04/16/24 Ordered By: Mir Limon Admission Data Admit Date/Time: 04/14/24 04:48 Attending Provider: Mir Limon Admit Provider: Sushma Ordoñez Primary Care Provider: July Brown Other Providers: Sushma Ordoñez; Eamon Lee Hospital Stay Data Consultations 04/14/24 04:22 ED Decision to Admit Stat 04/14/24 05:30 Consult Cardiology Routine Diagnostic Imagining Performed 04/14/24 00:32 CT cervical spine wo con Stat CT head/brain wo con Stat 04/14/24 05:30 Carotid duplex [US carotid doppler BI] Routine 04/14/24 05:37 CT chest without contrast [CT chest diagnostic wo con] Stat Pending Results Patient Have Any Pending Studies at Discharge: No Discharge Instructions Given to Patient (Per Discharging Provider) Follow up with PMD in 1 week Total Time Total Time Spent Total Time Spent (In Minutes): 50 Coding Level of Care Code 68198 INP/OBS DISCH >30 MIN Diagnoses Syncope and collapse R55 Diarrhea R19.7 Coronary artery disease involving [place] coronary artery of [place] heart without angina pectoris I25.10 Coronary Disease-Associated Artery/Lesion type: [place] artery [place] vs. transplanted heart: [place] heart Associated angina: without angina Type 2 diabetes mellitus E11.9 Essential hypertension I10 Dementia F03.90
[2024-04-16 10:45] VITALS: PULSE 59
== END 2024-04-16 11:36 | disposition home health service (06) | DRG 312 ==
LOC: ED 23:30 → EDINP 04-14 04:48 → SUATTDRO 04-14 04:48 → INTOOBSV 04-14 04:48 → 2W 04-14 14:51

== ENCOUNTER 2024-06-23 16:09 | Inpatient (IN) ==
[2024-06-23 16:41] LABS: Basophils # (auto) 0.05 K/uL (0.00-0.20); Basophils % (auto) 0.7 %; Eosinophils % (auto) 1.3 %; Hematocrit (blood only) 39.2 % (42.0-52.0); Hemoglobin 13.2 g/dl (14.0-18.0); Immature Granulocytes # (auto) 0.02 K/uL (0.01-0.20); Immature Granulocytes % (auto) 0.3 %; Lymphocytes # (auto) 1.43 K/uL (1.20-3.40); Lymphocytes % (auto) 19.1 %; Mean Corpuscular Hemoglobin 31.4 pg (25.0-34.0); Mean Corpuscular Hgb Conc 33.7 g/dL (32.0-36.0); Mean Corpuscular Volume 93.3 fL (80.0-100.0); Mean Platelet Volume 9.5 fL (9.4-12.4); Monocytes % (auto) 6.7 %; Neutrophils % (auto) 71.9 %; Platelet Count 225 K/uL (130-400); RDW Coefficient of Variation 13.3 % (11.5-14.5); RDW Standard Deviation 45.3 fL (36.4-46.3)
--- NOTE | 2024-06-23 16:49 | XRay Report ---
EXAM: Portable AP chest radiograph TECHNIQUE: AP portable radiograph of the chest was obtained. INDICATION: Chest pain Comparison: CT thorax and chest radiograph April 14, 2024. FINDINGS: LINES and TUBES: Loop recorder is present CARDIOVASCULAR: Cardiac silhouette is mildly enlarged in size. Moderate coronary calcifications. LUNGS/PLEURA: No focal consolidation identified. No significant pleural fluid. No discernible pneumothorax. OSSEOUS/OTHER: No displaced acute osseous process identified. IMPRESSION: Unchanged mild enlargement of the cardiac silhouette Electronically signed by Pranav Zapien 06-23-2024 4:49 PM
[2024-06-23 17:00] LABS: Albumin Globulin Ratio 1.2 (0.9-2); Albumin Level 3.7 gm/dl (3.4-5.0); BUN Creatinine Ratio 20.2 (10-20); Bilirubin,Total 0.3 mg/dl (0.2-1.0); Calcium 9.7 mg/dl (8.6-10.3); Creatinine Clr Calc Pharmacy 59.6 ml/min; Globulin 3.2 gm/dl (2.5-4.0); Potassium 3.8 mmol/L (3.5-5.1); Total Protein 6.9 gm/dl (6.0-8.3)
[2024-06-23 17:06] LABS: Troponin I High Sensitivity 5.1 pg/ml (0-20)
[2024-06-23 17:08] LABS: Partial Thromboplastin Ratio 0.9; Partial Thromboplastin Time 24 Seconds (21-31); Prothrombin Time 11.2 Seconds (9.0-12.0)
--- NOTE | 2024-06-23 18:22 | History & Physical Report ---
Date of Service June 23, 2024 Assessment & Plan (1) CHB (complete heart block): (2) Ischemic heart disease due to coronary artery obstruction: (3) Dementia: (4) DM2 (diabetes mellitus, type 2): Plan #Complete heart blockcurrently sinus rhythm and asymptomatic. Family feels his quality of life would definitely warrant proceeding with a pacemaker. Admit to telemetry, pacemaker pads at bedside. Cardiology informed in case complete heart block were to ensue so that they are aware for the potential for transvenous placement. Obviously no intervention is required at this time as he is sinus rhythm and asymptomatic. #Type 2 diabeteshis A1c is 6.2. Hold his sulfonylurea, check fingersticks, add supplemental insulin only if needed #dementiarisk for delirium. Melatonin at bedtime (daughter asked for something to help him sleep and I discussed the deliriogenic risk of most other medications), asked for him to be in a solo room or at least a window if at all possible. Daughter should be allowed to stay with him . #Coronary artery diseaseseems to be stable. Continue home medications. Hold aspirin and Brilinta once necessary for pacemaker. #DVT prophylaxisLovenox History of Present Illness Chief Complaint: Seen by cardiology Primary Care Provider: July Brown MD patient is a very pleasant but very demented 79-year-old male. Daughter notes that they were called by the cardiology office because his loop recorder was showing intermittent complete heart block. He has had rather random fainting a nd unresponsive spells leading to the loop recorder, and it apparently then was showing complete heart block so he was sent in. Fortunately he is currently in sinus rhythm and totally asymptomatic. He offers extremely limited HPI or review of systems due to his dementia, but his daughter is present at the bedside and notes that he generally has very good quality of life he lives next- door to his daughter and lives with his , and seems to enjoy his life. With that in mind she would much prefer that he proceed with getting a pacemaker. No current symptoms. Allergies Allergy/AdvReac Type Severity Reaction Status Date / Time No Known Allergies Allergy Verified 05/09/24 09:57 Home Medications Medication Instructions Recorded Confirmed Type aspirin 81 mg tablet,delayed 81 mg PO QAM 10/17/17 06/23/24 History release cholecalciferol (vitamin D3) 25 1,000 units PO QAM 10/17/17 06/23/24 History mcg (1,000 unit) tablet (Vitamin D3) multivitamin 1 tab PO QAM 10/17/17 06/23/24 History omeprazole 40 mg capsule,delayed 40 mg PO BIDM 04/30/21 06/23/24 History release sertraline 25 mg tablet 25 mg PO PM 04/30/21 06/23/24 History donepezil 10 mg tablet 10 mg PO BID #180 tabs 07/06/23 06/23/24 Rx glipizide 2.5 mg tablet, extended 2.5 mg PO QDD 12/05/23 06/23/24 History release 24 hr ticagrelor 90 mg tablet (Brilinta) 90 mg PO BID ruptured plaque in 12/16/23 06/23/24 Rx LAD #90 tabs Lactobacillus acidophilus 10 10,000 mmu cells PO DAILY 04/14/24 05/09/24 History billion cell capsule (Probiotic) acetaminophen 650 mg 1,300 mg PO AMPM 04/14/24 06/23/24 History tablet,extended release ascorbic acid (vitamin C) 1,000 mg 1 g PO QAM 04/14/24 06/23/24 History tablet (Vitamin C) levocetirizine 5 mg tablet (Xyzal) 5 mg PO QAM 04/14/24 06/23/24 History colestipol 1 gram tablet (Colestid) 1 g PO BID 05/09/24 06/23/24 History rosuvastatin 20 mg tablet 20 mg PO QDD LAD ruptured plaque 06/23/24 06/23/24 History Past Med/Surg History Problem List CHB (complete heart block) 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% Syncope (Acute) Encounter for interrogation of cardiac recorder Cardiac syncope Ischemic heart disease due to coronary artery obstruction Syncope V-tach (Acute) 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) Idiopathic peripheral neuropathy (Acute) Small vessel disease, cerebrovascular (Acute) History of knee replacement procedure of left knee History of knee replacement procedure of right knee High blood pressure (Chronic) Abdominal pain (Acute) Left knee DJD Right knee DJD Medical History 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 block Diarrhea Dementia Essential hypertension Type 2 diabetes mellitus Syncope and collapse Presence of drug-eluting stent in anterior descending branch of left coronary artery (11/2023) CAD (coronary artery disease) Impotence, organic Former smoker Allergic contact dermatitis Mood disorder DM2 (diabetes mellitus, type 2) Syncope Hyperlipidemia Mixed Alzheimer's and vascular dementia Diabetes Dementia Hypertension Inguinal hernia Diabetes Actinic keratosis Surgical History H/O right inguinal hernia repair Hx of cholecystectomy Family History Brother Diabetes Hypertension Sister Diabetes Hypertension Other No pertinent family history Social History Smoking Status: Former smoker Hx Alcohol Use: No Hx Substance Use: No Preferred Language: Spanish Communication Ability: Effective Stock Or Delivery Clerk Required: No Beliefs That Will Affect Care: None Current Living Situation: Spouse Feels Safe at Home: Yes Assistive Devices: Bedside Commode, Lift Chair, Walker and Wheelchair Review of Systems Review of Systems: All systems reviewed & are unremarkable except as noted in HPI & below Physical Exam Physical Exam: General he is awake and alert seems pleasantly confused but no distress. He is smiling. Cardio is regular no rubs murmurs or gallops. Lungs are clear to auscultation bilaterally no rales rhonchi or wheezes good effort. Abdomen is soft nondistended nontender no masses organomegaly. Extremities without sinus clubbing or edema. Neuro shows no focal deficits. Labs and diagnostics noted. Currently sinus on EKG and on monitor. Results & Data Results & Data Vital Signs (Past 12 Hours) Vital Signs Temp Pulse Pulse Resp BP BP Pulse Ox 06/23/24 18:00 63 15 134/71 97 06/23/24 16:54 61 06/23/24 16:48 57 L 16 164/7 H 99 06/23/24 16:48 57 L 17 100 06/23/24 16:12 98.1 F 90 20 158/79 H 96 O2 Del Method 06/23/24 18:00 Room Air 06/23/24 16:54 06/23/24 16:48 Room Air 06/23/24 16:48 Room Air 06/23/24 16:12 Room Air Code Status & VTE Plan VTE Prophylaxis Plan VTE Prophylaxis will be ordered: Yes PG Care Time/CCT Total # of Minutes Spent Total Time Spent with Patient: Total time spent is greater than 50% in coordination of care (as documented) at patient's floor/unit and/or counseling patient: Coding Level of Care Code 07806 INT INP/OBS CARE 3/75MIN Diagnoses CHB (complete heart block) I44.2 Ischemic heart disease due to coronary artery obstruction I24.0; I25.9 Dementia F03.90 DM2 (diabetes mellitus, type 2) E11.9
--- NOTE | 2024-06-23 20:27 | Emergency Department Note ---
History of Present Illness General Chief complaint: Cardiac Assessment Stated complaint: HEART BLOCK? DR FRIED Time Seen by Provider: 06/23/24 16:24 Source: family (Daughter at bedside who reports she is the patient advocate) History of Present Illness Provider complaint: Heart block 79-year-old male presents the emergency department. Patient has dementia. He is accompanied by his family including his daughter who reports she is his patient advocate. Daughter reports that the patient's bio medical technician at [facility] told her to come to the emergency department because he is in heart block. She states he has a loop recorder which measured heart block. Patient states he needs a pacemaker right now. She states she wants it done immediately. No reported falls or traumas. Home Medications Medication Instructions Recorded Confirmed Type aspirin 81 mg tablet,delayed 81 mg PO QAM 10/17/17 06/23/24 History release cholecalciferol (vitamin D3) 25 1,000 units PO QAM 10/17/17 06/23/24 History mcg (1,000 unit) tablet (Vitamin D3) multivitamin 1 tab PO QAM 10/17/17 06/23/24 History omeprazole 40 mg capsule,delayed 40 mg PO BIDM 04/30/21 06/23/24 History release sertraline 25 mg tablet 25 mg PO HS 04/30/21 06/23/24 History donepezil 10 mg tablet 10 mg PO BID #180 tabs 07/06/23 06/23/24 Rx glipizide 2.5 mg tablet, extended 2.5 mg PO QDD 12/05/23 06/23/24 History release 24 hr ticagrelor 90 mg tablet (Brilinta) 90 mg PO BID ruptured plaque in 12/16/23 06/23/24 Rx LAD #90 tabs Lactobacillus acidophilus 10 10,000 mmu cells PO QAM 04/14/24 06/23/24 History billion cell capsule (Probiotic) acetaminophen 650 mg 1,300 mg PO AMPM 04/14/24 06/23/24 History tablet,extended release ascorbic acid (vitamin C) 1,000 mg 1 g PO QAM 04/14/24 06/23/24 History tablet (Vitamin C) levocetirizine 5 mg tablet (Xyzal) 5 mg PO QAM 04/14/24 06/23/24 History colestipol 1 gram tablet (Colestid) 1 g PO BID 05/09/24 06/23/24 History rosuvastatin 20 mg tablet 20 mg PO QDD LAD ruptured plaque 06/23/24 06/23/24 History Allergies Allergy/AdvReac Type Severity Reaction Status Date / Time No Known Allergies Allergy Verified 05/09/24 09:57 Past Med/Surg History Problem List (Updated 06/23/24 @ 20:34 by Gerald Parmar MD) Arrhythmia (Acute) CHB (complete heart block) 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% Syncope (Acute) Encounter for interrogation of cardiac recorder Cardiac syncope Ischemic heart disease due to coronary artery obstruction Syncope V-tach (Acute) 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) Idiopathic peripheral neuropathy (Acute) Small vessel disease, cerebrovascular (Acute) History of knee replacement procedure of left knee History of knee replacement procedure of right knee High blood pressure (Chronic) Abdominal pain (Acute) Left knee DJD Right knee DJD Medical History 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 block Diarrhea Dementia Essential hypertension Type 2 diabetes mellitus Syncope and collapse Presence of drug-eluting stent in anterior descending branch of left coronary artery (11/2023) CAD (coronary artery disease) Impotence, organic Former smoker Allergic contact dermatitis Mood disorder DM2 (diabetes mellitus, type 2) Syncope Hyperlipidemia Mixed Alzheimer's and vascular dementia Diabetes Dementia Hypertension Inguinal hernia Diabetes Actinic keratosis Surgical History H/O right inguinal hernia repair Hx of cholecystectomy Family History Brother Diabetes Hypertension Sister Diabetes Hypertension Other No pertinent family history Social History Smoking Status: Former smoker Hx Alcohol Use: No Hx Substance Use: No Preferred Language: Maori Communication Ability: Effective Kit Assembler Required: No Beliefs That Will Affect Care: None Current Living Situation: Spouse Feels Safe at Home: Yes Assistive Devices: Bedside Commode, Lift Chair, Walker and Wheelchair Physical Exam Vital Signs Vital Signs - 24 hr 06/23/24 16:12 06/23/24 16:48 06/23/24 16:48 Temperature 36.7 C Temperature Source Skin Pulse Rate 90 57 L Pulse Rate [Apical] 57 L Pulse Rhythm Regular Pulse Rhythm [Apical] Regular Pulse Strength Normal Pulse Strength [Apical] Normal Respiratory Rate 20 17 16 Respiratory Effort / Characteristics Non-Labored Spontaneous Non-Labored Respiratory Depth Normal Normal Respiratory Pattern Regular Blood Pressure 158/79 H Blood Pressure [Left Arm] 164/7 H Blood Pressure Mean 105 Blood Pressure Mean [Left Arm] 59 Blood Pressure Position [Left Arm] Lying Pulse Oximetry 96 100 99 Oxygen Delivery Method Room Air Room Air Room Air Sepsis Recent Fever Within 48 Hours No Sepsis New/Unexplained Change in Mental Status N/A Sepsis Action Taken by Nursing No Action Required 06/23/24 16:54 06/23/24 18:00 06/23/24 19:00 Temperature Temperature Source Pulse Rate 61 Pulse Rate [Apical] 63 67 Pulse Rhythm Pulse Rhythm [Apical] Regular Pulse Strength Pulse Strength [Apical] Normal Respiratory Rate 15 19 Respiratory Effort / Characteristics Non-Labored Respiratory Depth Normal Normal Respiratory Pattern Regular Blood Pressure Blood Pressure [Left Arm] 134/71 144/77 H Blood Pressure Mean Blood Pressure Mean [Left Arm] 92 99 Blood Pressure Position [Left Arm] Lying Pulse Oximetry 97 96 Oxygen Delivery Method Room Air Room Air Sepsis Recent Fever Within 48 Hours Sepsis New/Unexplained Change in Mental Status Sepsis Action Taken by Nursing 06/23/24 20:00 Temperature Temperature Source Pulse Rate Pulse Rate [Apical] 68 Pulse Rhythm Pulse Rhythm [Apical] Pulse Strength Pulse Strength [Apical] Respiratory Rate 19 Respiratory Effort / Characteristics Respiratory Depth Respiratory Pattern Blood Pressure Blood Pressure [Left Arm] 159/91 H Blood Pressure Mean Blood Pressure Mean [Left Arm] 113 Blood Pressure Position [Left Arm] Pulse Oximetry 97 Oxygen Delivery Method Room Air Sepsis Recent Fever Within 48 Hours Sepsis New/Unexplained Change in Mental Status Sepsis Action Taken by Nursing Physical Exam HENT: Exam performed. - Head: Normocephalic and atraumatic. EYES: Conjunctivae and EOM are normal. Right eye exhibits no discharge. Left eye exhibits no discharge. No scleral icterus. NECK: Normal range of motion. Neck supple. No JVD present. CV: Normal rate, regular rhythm, normal heart sounds and intact distal pulses. There is no peripheral edema. Palpable radial pulses bue. PULM/CHEST: Effort normal and breath sounds normal. No respiratory distress. No stridor. no wheezes. no rales. ABD: The abdomen is soft. There is no tenderness. NEURO: Motor and sensation grossly intact. Course Course 1624: The patient was evaluated in room C5. A complete history and physical exam was performed Medical Decision Making Laboratory Data Attestation: I reviewed the patient's lab results. 06/23/24 16:27 06/23/24 16:27 Lab Results 06/23/24 Range/Units 16:27 WBC 7.50 (4.8-10.8) K/ul RBC 4.20 L (4.70-6.10) M/uL Hgb 13.2 L (14.0-18.0) g/dl Hct 39.2 L (42.0-52.0) % MCV 93.3 (80.0-100.0) fL MCH 31.4 (25.0-34.0) pg MCHC 33.7 (32.0-36.0) g/dL RDW Std Deviation 45.3 (36.4-46.3) fL RDW Coeff of Aruna 13.3 (11.5-14.5) % Plt Count 225 (130-400) K/uL MPV 9.5 (9.4-12.4) fL Immature Gran % (Auto) 0.3 % Neut % (Auto) 71.9 % Lymph % (Auto) 19.1 % Ford % (Auto) 6.7 % Eos % (Auto) 1.3 % Baso % (Auto) 0.7 % Neut # (Auto) 5.40 (1.40-6.50) K/uL Lymph # (Auto) 1.43 (1.20-3.40) K/uL Ford # (Auto) 0.50 (0.11-0.59) K/uL Eos # (Auto) 0.10 (0.00-0.50) K/uL Baso # (Auto) 0.05 (0.00-0.20) K/uL Immature Gran # (Auto) 0.02 (0.01-0.20) K/uL PT 11.2 (9.0-12.0) Seconds INR 1.0 (0.9-1.1) APTT 24 (21-31) Seconds PTT Ratio 0.9 Sodium 142 (136-145) mmol/L Potassium 3.8 (3.5-5.1) mmol/L Chloride 111 H (98-107) mmol/L Carbon Dioxide 26 (21-32) mmol/L Anion Gap 5 (3-11) BUN 19 (6-23) mg/dl Creatinine 0.94 (0.6-1.4) mg/dl Est Cr Clr Drug Dosing 59.6 ml/min eGFR 81.44 BUN/Creatinine Ratio 20.2 H (10-20) Glucose 163 H (70-99(Fasting)) mg/dl Calcium 9.7 (8.6-10.3) mg/dl Total Bilirubin 0.3 (0.2-1.0) mg/dl AST 21 (13-39) U/L ALT 24 (7-52) U/L Alkaline Phosphatase 106 H (34-104) U/L Troponin I High Sens 5.1 (0-20) pg/ml Total Protein 6.9 (6.0-8.3) gm/dl Albumin 3.7 (3.4-5.0) gm/dl Globulin 3.2 (2.5-4.0) gm/dl Albumin/Globulin Ratio 1.2 (0.9-2) Imaging Data Attestation: I personally reviewed and interpreted this imaging study as follows: My Impression: No significant change from the chest x-ray in April 2024 Radiologist's Impression: Chest X-Ray 06/23/24 16:16 EXAM: Portable AP chest radiograph TECHNIQUE: AP portable radiograph of the chest was obtained. INDICATION: Chest pain Comparison: CT thorax and chest radiograph April 14, 2024. FINDINGS: LINES and TUBES: Loop recorder is present CARDIOVASCULAR: Cardiac silhouette is mildly enlarged in size. Moderate coronary calcifications. LUNGS/PLEURA: No focal consolidation identified. No significant pleural fluid. No discernible pneumothorax. OSSEOUS/OTHER: No displaced acute osseous process identified. IMPRESSION: Unchanged mild enlargement of the cardiac silhouette Electronically signed by Pranav Zapien 06-23-2024 4:49 PM ECG Data Attestation: I personally reviewed and interpreted this ECG as follows: Rate (beats per minute): 63 Rhythm: + normal sinus ECG Intervals/blocks: + First degree AV block, + Normal QRS and + Normal QT-c ECG ST segments: + Normal ST segments MDM Narrative Cardiac monitoring: An order was placed for continuous cardiac monitoring. The monitor shows a rate of 60 with sinus rhythm interpreted by me Labs and imaging are unremarkable. [facility] by [facility]. Explained to the patient's daughter that there is no need for emergent pacemaker placement and cardiology will evaluate him for placement during this admission. Patient mated to Dr. Moyer's team. Impression & Plan Arrhythmia Discharge Plan Visit Data Chief Complaint: Cardiac Assessment Stated Complaint: HEART BLOCK? DR FRIED ED Provider: Gerald Parmar Discharge Problem: Arrhythmia Patient Disposition: Admitted As Inpatient Condition: Fair Forms Stand Alone Forms: My [facility] Prescriptions Prescriptions: No Action donepezil 10 mg tablet 10 mg PO BID Qty: 180 3RF sertraline 25 mg tablet 25 mg PO HS Brilinta 90 mg tablet 90 mg PO BID Qty: 90 1RF Rx Instructions: Take Brilinta 90 mg 1 tablet twice daily for a total of 180mg per day. colestipol [Colestid] 1 gram tablet 1 g PO BID Rx Instructions: MUST GIVE 2 GRAM AT 1230 & 2230 DO NOT GIVE WITH OTHER MEDS. MUST BE 1 HOUR FROM ALREADY ADMINISTERED MEDS AND 4 HOURS APART FROM TAKING NEXT SCHEDULED MEDS multivitamin Tablet 1 tab PO QAM aspirin 81 mg Tablet,Delayed Release (Dr/Ec) 81 mg PO QAM cholecalciferol (vitamin D3) [Vitamin D3] 1,000 unit Tablet 1,000 units PO QAM omeprazole 40 mg capsule,delayed release(DR/EC) 40 mg PO BIDM ascorbic acid (vitamin C) [Vitamin C] 1,000 mg Tablet 1 g PO QAM acetaminophen 650 mg Tablet Extended Release 1,300 mg PO AMPM levocetirizine [Xyzal] 5 mg Tablet 5 mg PO QAM Probiotic 10 billion cell Capsule 10,000 mmu cells PO QAM glipizide 2.5 mg tablet extended release 24hr 2.5 mg PO QDD Rx Instructions: Per daughter/caregiver, the patient takes an additional 2.5mg tablet by mouth IF he eats a sugary snack. rosuvastatin 20 mg tablet 20 mg PO QDD Rx Instructions: Please take Rosuvastatin 20 mg 1 tablet daily Referrals Referrals: July Brown MD [Primary Care Provider] -
[2024-06-23 20:49] LABS: Appearance Urine Clear (Clear); Bacteria Urine Automated None Seen (None Seen); Bilirubin Urine Negative (Negative); Blood Urine 3+ (Negative); Calcium Oxalate Crystals Urine Present (None Prsent); Color Urine Yellow; Glucose Urine UA Negative (Negative); Granular Casts Urine Present /lpf (None Prsent); Ketones Urine Trace (Negative); Leukocyte Esterase Urine Negative (Negative); Nitrite Urine Negative (Negative); Protein Urine 2+ (Negative); RBC Urine Automated >20 /hpf (0-2); Specific Gravity Urine 1.036 (1.000-1.030); Urobilinogen Urine Negative (Negative); WBC Urine Automated 0-5 /hpf (0-5); pH Urine 5.5 (4.5-7.5)
[2024-06-23] MEDS ORDERED: ALUMINUM/MAGNESIUM SUSP 30 ML UDC PO PRN (21:14)
[2024-06-23] MEDS ORDERED: ONDANSETRON INJ 2 MG/ML 2 ML VIAL IV PRN (21:14)
[2024-06-23] MEDS ORDERED: MAGNESIUM HYDROXIDE SUSP 30 ML UDC PO PRN (21:14)
[2024-06-23] MEDS ORDERED: POLYETHYLENE (MIRALAX) 17 GM PACK PO PRN (21:14)
[2024-06-23] MEDS: ACETAMINOPHEN 325 MG TAB PO SCH (22:20)
[2024-06-23] MEDS: COLESTIPOL HCL 1 GM TAB PO SCH (22:21)
[2024-06-23] MEDS: ENOXAPARIN INJ 40 MG/0.4 ML SYR SQ SCH (22:21)
[2024-06-23] MEDS: DONEPEZIL HCL 10 MG TAB PO SCH (22:21)
[2024-06-23] MEDS: SERTRALINE HCL 50 MG TABLET PO SCH (22:22)
[2024-06-23] MEDS: PANTOprazole 40 MG TAB PO SCH (22:22)
[2024-06-23] MEDS: TICAGRELOR 90 MG TAB PO SCH (22:22)
[2024-06-24] MEDS: ASCORBIC ACID 500 MG TAB PO SCH (07:36)
[2024-06-24] MEDS: CETIRIZINE HCL 10 MG TABLET PO SCH (07:36)
[2024-06-24] MEDS: CHOLECALCIFEROL 25 MCG (1000 UNITS) TAB PO SCH (07:36)
[2024-06-24] MEDS: ROSUVASTATIN CALCIUM 20 MG TAB PO SCH (07:36)
[2024-06-24] MEDS: ASPIRIN 81 MG ECTAB PO SCH (07:37)
[2024-06-24] MEDS: MULTIVITAMIN TAB PO SCH (07:37)
[2024-06-24] MEDS ORDERED: Nursing to Pharmacy Communication SCH (09:00)
[2024-06-24] MEDS: COLESTIPOL HCL 1 GM TAB PO SCH (11:55)
--- NOTE | 2024-06-24 12:40 | Cardiology Consultation ---
Date of Consultation June 24, 2024 Assessment & Plan (1) CHB (complete heart block): -Noted on his implantable loop recorder. -On the schedule for a permanent pacemaker. (2) CAD (coronary artery disease): -s/p LAD WANDY, November 2023. -Continue medical management. (3) Essential hypertension: -Adequate control on current regimen. (4) Hyperlipidemia: -Continue rosuvastatin. History of Present Illness Attending Physician: Juventino Crum History of Present Illness Mr. Clay is an 79-year-old male admitted yesterday after an episode complete heart block. This consultation was ordered to assist in his cardiac management. The patient is typically follow-up with Dr. Perez in the outpatient setting. The patient's recent history began in November 2023 when he presented to our institution after an episode of syncope. He was found to have ventricular tachy cardia and therefore, a cardiac catheterization was performed. This revealed a 70 to 80% hazy stenosis in the mid LAD. A drug-eluting stent was placed at that location. Other coronary arteries had no significant disease. He did have a loop recorder implanted in January 2024 for recurrent syncope. On an interrogation performed on June 09, the patient was found a 4-second episode of intermittent complete heart block. Arrangements were being made for a permanent pacemaker. On June 23, the patient demonstrated a 6-second pause and evidence of complete heart block. He was sent to the emergency room for further care. Currently, patient is resting comfortably in the bedside chair and without complaints. Past medical and surgical history 1. Coronary artery diseasesee above 2. LAD DESOctober 2023 3. Hypertension 4. Hypercholesterolemia 5. Implantable loop recorderDecember 2023 6. Intermittent complete heart blockMay 2024 7. Dementia 8. Cerebrovascular disease 9. Intestinal carcinoid 10. Generalized peripheral neuropathy 11. Bilateral TKR 12. Right inguinal hernia repair 13. Cholecystectomy Social history and lives with his No tobacco or alcohol. Family history Noncontributory Review of systems Negative according to his Allergies Allergy/AdvReac Type Severity Reaction Status Date / Time No Known Allergies Allergy Verified 05/09/24 09:57 Home Medications Medication Instructions Recorded Confirmed Type aspirin 81 mg tablet,delayed 81 mg PO QAM 10/17/17 06/23/24 History release cholecalciferol (vitamin D3) 25 1,000 units PO QAM 10/17/17 06/23/24 History mcg (1,000 unit) tablet (Vitamin D3) multivitamin 1 tab PO QAM 10/17/17 06/23/24 History omeprazole 40 mg capsule,delayed 40 mg PO BIDM 04/30/21 06/23/24 History release sertraline 25 mg tablet 25 mg PO HS 04/30/21 06/23/24 History donepezil 10 mg tablet 10 mg PO BID #180 tabs 07/06/23 06/23/24 Rx glipizide 2.5 mg tablet, extended 2.5 mg PO QDD 12/05/23 06/23/24 History release 24 hr ticagrelor 90 mg tablet (Brilinta) 90 mg PO BID ruptured plaque in 12/16/23 06/23/24 Rx LAD #90 tabs Lactobacillus acidophilus 10 10,000 mmu cells PO QAM 04/14/24 06/23/24 History billion cell capsule (Probiotic) acetaminophen 650 mg 1,300 mg PO AMPM 04/14/24 06/23/24 History tablet,extended release ascorbic acid (vitamin C) 1,000 mg 1 g PO QAM 04/14/24 06/23/24 History tablet (Vitamin C) levocetirizine 5 mg tablet (Xyzal) 5 mg PO QAM 04/14/24 06/23/24 History colestipol 1 gram tablet (Colestid) 1 g PO BID 05/09/24 06/23/24 History rosuvastatin 20 mg tablet 20 mg PO QDD LAD ruptured plaque 06/23/24 06/23/24 History Patient History Medical History 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 block Diarrhea Dementia Essential hypertension Type 2 diabetes mellitus Syncope and collapse Presence of drug-eluting stent in anterior descending branch of left coronary artery (11/2023) CAD (coronary artery disease) Impotence, organic Former smoker Allergic contact dermatitis Mood disorder DM2 (diabetes mellitus, type 2) Syncope Hyperlipidemia Mixed Alzheimer's and vascular dementia Diabetes Dementia Hypertension Inguinal hernia Diabetes Actinic keratosis Surgical History H/O right inguinal hernia repair Hx of cholecystectomy Family History Brother Diabetes Hypertension Sister Diabetes Hypertension Other No pertinent family history Social History Smoking Status: Never smoker Second Hand Exposure: No; Do You Dip or Chew Tobacco: No; Hx Alcohol Use: No Hx Substance Use: No Preferred Language: Sudanese Communication Ability: Effective Honeycomb Decapper Required: No Beliefs That Will Affect Care: None Current Living Situation: Spouse Feels Safe at Home: Yes Assistive Devices: None Physical Exam Physical Exam: In general this is a well-developed well-nourished white male in no acute distress. HEENT exam is negative. Neck reveals normal carotid upstrokes without bruits. Jugular venous pressure is flat at 90. There is no thyromegaly. Cardiovascular exam reveals a regular rhythm with distant heart sounds. No obvious murmurs. Lungs are clear without rales, rhonchi, or wheezes. Abdomen is soft without bruits. Extremities reveal intact radial artery and posterior tibial pulses bilaterally. There is no peripheral edema. Results & Data Vital Signs (Past 12 Hours) Vital Signs Temp Pulse Pulse Resp BP Pulse Ox O2 Del Method 06/24/24 10:55 36.5 C 53 L 19 98/57 L 97 Room Air 06/24/24 09:00 55 L 06/24/24 07:14 36.7 C 57 L 19 146/74 H 96 Room Air 06/24/24 03:09 36.3 C L 16 115/69 96 Room Air Laboratory Results CBC and PRP are unremarkable. High-sensitivity troponin is normal at 5.1. Diagnostic Findings templer head notes sinus rhythm without evidence of heart block. PG Care Time/CCT Total # of Minutes Spent Total Time Spent with Patient: Total time spent is greater than 50% in coordination of care (as documented) at patient's floor/unit and/or counseling patient: Coding Level of Care Code 14449 INT INP/OBS CARE 3/75MIN Diagnoses CHB (complete heart block) I44.2 Coronary artery disease involving [place] coronary artery of [place] heart without angina pectoris I25.10 Coronary Disease-Associated Artery/Lesion type: [place] artery [place] vs. transplanted heart: [place] heart Associated angina: without angina Essential hypertension I10 Hyperlipidemia E78.5 (2) CAD (coronary artery disease) Coronary Disease-Associated Artery/Lesion type: [place] artery [place] vs. transplanted heart: [place] heart Associated angina: without angina Qualified Code(s): I25.10 - Atherosclerotic heart disease of [place] coronary artery without angina pectoris
--- NOTE | 2024-06-24 23:51 | Hospitalist Progress Note ---
Date of Service June 24, 2024 Assessment & Plan (1) CHB (complete heart block): (2) Ischemic heart disease due to coronary artery obstruction: (3) Dementia: (4) DM2 (diabetes mellitus, type 2): Plan #Complete heart blockcurrently sinus rhythm and asymptomatic. Family feels his quality of life would definitely warrant proceeding with a pacemaker. Admit to telemetry, pacemaker pads at bedside. Cardiology informed in case complete heart block were to ensue so that they are aware for the potential for transvenous placement. Obviously no intervention is required at this time as he is sinus rhythm and asymptomatic. Plan for pacemaker on Wednesday. #Type 2 diabeteshis A1c is 6.2. Hold his sulfonylurea, check fingersticks, add supplemental insulin only if needed #dementiarisk for delirium. Melatonin at bedtime (daughter asked for something to help him sleep and I discussed the deliriogenic risk of most other medications), asked for him to be in a solo room or at least a window if at all possible. Daughter should be allowed to stay with him . #Coronary artery diseaseseems to be stable. Continue home medications. Hold aspirin and Brilinta once necessary for pacemaker. #DVT prophylaxisLovenox Admission and Anticipated Discharge Date Admission Date: June 23, 2024 Subjective Patient with baseline dementia. Family is at bedside. Physical Exam Physical Exam: General he is awake and alert Cardio: RRR Lungs: clear to auscultation bilaterally no rales rhonchi or wheezes good effort. Abdomen: soft nondistended nontender no masses organomegaly. Neuro: no focal deficits Ext: no edema Results & Data Results & Data Vital Signs (Past 12 Hours) Vital Signs Temp Pulse Pulse Resp BP BP Pulse Ox 06/24/24 23:04 36.7 C 60 16 122/65 96 06/24/24 19:54 36.4 C L 62 16 167/84 H 96 06/24/24 15:15 36.4 C L 75 19 136/71 96 O2 Del Method 06/24/24 23:04 Room Air 06/24/24 19:54 Room Air 06/24/24 15:15 Room Air PG Care Time/CCT Total # of Minutes Spent Total Time Spent with Patient: Total time spent is greater than 50% in coordination of care (as documented) at patient's floor/unit and/or counseling patient: Coding Level of Care Code 71376 SUB INP/OBS CARE MIN Diagnoses CHB (complete heart block) I44.2 Ischemic heart disease due to coronary artery obstruction I24.0; I25.9 Dementia F03.90 DM2 (diabetes mellitus, type 2) E11.9
[2024-06-25 07:55] LABS: Hematocrit (blood only) 33.9 % (42.0-52.0); Hemoglobin 11.6 g/dl (14.0-18.0); Mean Corpuscular Hemoglobin 31.4 pg (25.0-34.0); Mean Corpuscular Hgb Conc 34.2 g/dL (32.0-36.0); Mean Corpuscular Volume 91.6 fL (80.0-100.0); Mean Platelet Volume 9.9 fL (9.4-12.4); Platelet Count 190 K/uL (130-400); RDW Coefficient of Variation 12.5 % (11.5-14.5); RDW Standard Deviation 42.2 fL (36.4-46.3); White Blood Count 6.61 K/ul (4.8-10.8)
[2024-06-25 08:40] LABS: Anion Gap 5 (3-11); BUN Creatinine Ratio 24.3 (10-20); Blood Urea Nitrogen 17 mg/dl (6-23); C Reactive Protein < 0.50 mg/dl (0-0.5); Calcium 9.5 mg/dl (8.6-10.3); Carbon Dioxide 26 mmol/L (21-32); Chloride 109 mmol/L (98-107); Glucose 106 mg/dl (70-99(Fasting)); Potassium 3.8 mmol/L (3.5-5.1); Sodium 140 mmol/L (136-145)
--- NOTE | 2024-06-25 22:49 | Hospitalist Progress Note ---
Date of Service June 25, 2024 Assessment & Plan (1) CHB (complete heart block): (2) Ischemic heart disease due to coronary artery obstruction: (3) Dementia: (4) DM2 (diabetes mellitus, type 2): Plan #Complete heart blockcurrently sinus rhythm and asymptomatic. Family feels his quality of life would definitely warrant proceeding with a pacemaker. Admit to telemetry, pacemaker pads at bedside. Cardiology informed in case complete heart block were to ensue so that they are aware for the potential for transvenous placement. Obviously no intervention is required at this time as he is sinus rhythm and asymptomatic. Plan for pacemaker on Wednesday. No current issues #Type 2 diabeteshis A1c is 6.2. Hold his sulfonylurea, check fingersticks, add supplemental insulin only if needed #dementiarisk for delirium. Melatonin at bedtime (daughter asked for something to help him sleep and I discussed the deliriogenic risk of most other medications), asked for him to be in a solo room or at least a window if at all possible. Daughter should be allowed to stay with him . #Coronary artery diseaseseems to be stable. Continue home medications. Hold aspirin and Brilinta once necessary for pacemaker. #DVT prophylaxisLovenox Admission and Anticipated Discharge Date Admission Date: June 23, 2024 Subjective Patient with no new complaints. Physical Exam Physical Exam: General he is awake and alert Cardio: RRR Lungs: clear to auscultation bilaterally no rales rhonchi or wheezes good effort. Abdomen: soft nondistended nontender no masses organomegaly. Neuro: no focal deficits Ext: no edema Results & Data Results & Data Vital Signs (Past 12 Hours) Vital Signs Temp Pulse Pulse Resp BP Pulse Ox O2 Del Method 06/25/24 20:46 36.5 C 57 L 16 108/72 95 Room Air 06/25/24 15:20 36.4 C L 51 L 18 107/65 96 Room Air 06/25/24 14:18 68 06/25/24 10:53 36.8 C 56 L 19 144/74 H 97 Room Air PG Care Time/CCT Total # of Minutes Spent Total Time Spent with Patient: Total time spent is greater than 50% in coordination of care (as documented) at patient's floor/unit and/or counseling patient: Coding Level of Care Code 01336 SUB INP/OBS CARE 2/35MIN Diagnoses CHB (complete heart block) I44.2 Ischemic heart disease due to coronary artery obstruction I24.0; I25.9 Dementia F03.90 DM2 (diabetes mellitus, type 2) E11.9
[2024-06-26 06:51] LABS: Hematocrit (blood only) 33.9 % (42.0-52.0); Hemoglobin 11.7 g/dl (14.0-18.0); Mean Corpuscular Hemoglobin 31.6 pg (25.0-34.0); Mean Corpuscular Hgb Conc 34.5 g/dL (32.0-36.0); Mean Corpuscular Volume 91.6 fL (80.0-100.0); Mean Platelet Volume 9.6 fL (9.4-12.4); Platelet Count 179 K/uL (130-400); RDW Coefficient of Variation 12.8 % (11.5-14.5); RDW Standard Deviation 42.7 fL (36.4-46.3); White Blood Count 7.47 K/ul (4.8-10.8)
[2024-06-26 07:17] LABS: BUN Creatinine Ratio 23.9 (10-20); Calcium 9.8 mg/dl (8.6-10.3); Creatinine Clr Calc Pharmacy 69.1 ml/min
--- NOTE | 2024-06-26 15:46 | Electrocardiogram Report ---
Test Reason : Blood Pressure : */* mmHG Vent. Rate : 63 BPM Atrial Rate : 63 BPM P-R Int : 210 ms QRS Dur : 88 ms QT Int : 428 ms P-R-T Axes : 6 -27 87 degrees QTcB Int : 437 ms Sinus rhythm with 1st degree A-V block Nonspecific ST and T wave abnormality Abnormal ECG When compared with ECG of 13-Apr-2024 23:35, Premature ventricular complexes are no longer Present Confirmed by Sanjay Fitzgerald ([id number]) on 06/26/2024 3:46:20 PM Referred By: REFERRED SELF Confirmed By: Sanjay Fitzgerald
--- NOTE | 2024-06-26 18:38 | Hospitalist Progress Note ---
Date of Service June 26, 2024 Assessment & Plan (1) CHB (complete heart block): (2) Ischemic heart disease due to coronary artery obstruction: (3) Dementia: (4) DM2 (diabetes mellitus, type 2): Plan #Complete heart blockcurrently sinus rhythm and asymptomatic. Family feels his quality of life would definitely warrant proceeding with a pacemaker. Admit to telemetry, pacemaker pads at bedside. Cardiology informed in case complete heart block were to ensue so that they are aware for the potential for transvenous placement. Obviously no intervention is required at this time as he is sinus rhythm and asymptomatic. Plan for pacemaker on Wednesday No current issues #Type 2 diabeteshis A1c is 6.2. Hold his sulfonylurea, check fingersticks, add supplemental insulin only if needed #dementiarisk for delirium. Melatonin at bedtime (daughter asked for something to help him sleep and I discussed the deliriogenic risk of most other medications), asked for him to be in a solo room or at least a window if at all possible. Daughter should be allowed to stay with him . #Coronary artery diseaseseems to be stable. Continue home medications. Hold aspirin and Brilinta once necessary for pacemaker. #DVT prophylaxisLovenox Admission and Anticipated Discharge Date Admission Date: June 23, 2024 Subjective 79 yo male reports no new symptoms. Physical Exam Physical Exam: General he is awake and alert Cardio: RRR Lungs: clear to auscultation bilaterally no rales rhonchi or wheezes good effort. Abdomen: soft nondistended nontender no masses organomegaly. Neuro: no focal deficits Ext: no edema Results & Data Results & Data Vital Signs (Past 12 Hours) Vital Signs Temp Pulse Pulse Resp BP BP Pulse Ox 06/26/24 16:01 59 L 06/26/24 15:44 36.4 C L 56 L 16 152/86 H 96 06/26/24 11:15 36.5 C 68 18 121/70 95 06/26/24 09:00 55 L 06/26/24 07:27 36.5 C 59 L 16 113/69 95 O2 Del Method 06/26/24 16:01 06/26/24 15:44 Room Air 06/26/24 11:15 Room Air 06/26/24 09:00 06/26/24 07:27 Room Air PG Care Time/CCT Total # of Minutes Spent Total Time Spent with Patient: Total time spent is greater than 50% in coordination of care (as documented) at patient's floor/unit and/or counseling patient: Coding Level of Care Code 38802 SUB INP/OBS CARE 2/35MIN Diagnoses CHB (complete heart block) I44.2 Ischemic heart disease due to coronary artery obstruction I24.0; I25.9 Dementia F03.90 DM2 (diabetes mellitus, type 2) E11.9
[2024-06-26] MEDS: MELATONIN 3 MG TAB PO PRN (21:25)
[2024-06-27] MEDS: LACTATED RINGER'S 1,000 ML IV SCH (06:17)
[2024-06-27 07:19] LABS: Hematocrit (blood only) 35.1 % (42.0-52.0); Hemoglobin 12.1 g/dl (14.0-18.0); Mean Corpuscular Hemoglobin 31.7 pg (25.0-34.0); Mean Corpuscular Hgb Conc 34.5 g/dL (32.0-36.0); Mean Corpuscular Volume 91.9 fL (80.0-100.0); Mean Platelet Volume 9.8 fL (9.4-12.4); Platelet Count 177 K/uL (130-400); RDW Coefficient of Variation 12.9 % (11.5-14.5); RDW Standard Deviation 42.9 fL (36.4-46.3); Red Blood Count 3.82 M/uL (4.70-6.10); White Blood Count 7.78 K/ul (4.8-10.8)
[2024-06-27 07:35] LABS: BUN Creatinine Ratio 25.8 (10-20); Calcium 9.5 mg/dl (8.6-10.3)
--- NOTE | 2024-06-27 08:22 | Pre Anesthesia Assessment ---
Date of Service June 27, 2024 Pre Sedation Assessment Vital Signs Temp Pulse Pulse Resp BP BP Pulse Ox 06/27/24 07:24 36.6 C 55 L 18 134/69 95 06/27/24 03:42 36.6 C 59 L 18 119/65 95 06/26/24 22:41 36.7 C 67 16 135/75 94 06/26/24 21:48 60 06/26/24 20:11 36.9 C 57 L 18 128/70 98 06/26/24 16:01 59 L 06/26/24 15:44 36.4 C L 56 L 16 152/86 H 96 06/26/24 11:15 36.5 C 68 18 121/70 95 06/26/24 09:00 55 L O2 Del Method 06/27/24 07:24 Room Air 06/27/24 03:42 Room Air 06/26/24 22:41 Room Air 06/26/24 21:48 06/26/24 20:11 Room Air 06/26/24 16:01 06/26/24 15:44 Room Air 06/26/24 11:15 Room Air 06/26/24 09:00 Cardiovascular RRR, no murmur, no edema Respiratory normal respiratory effort, lungs clear to auscultation Pre-Sedation Airway Assessment Smoking Status: Never smoker Mallampati Class: II ASA: ASA3 NPO Status Date of Last Intake of Fluids: 06/26/24 Date of Last Intake of Solid Food: 06/26/24 Procedure Planning Contraindications for Sedation: none Current Medications Reviewed: Yes Notes The planned sedation has been discussed with the patient. Informed Consent was obtained. I have identified the patient, determined the appropriateness of sedation and have assessed the patient immediately prior to the procedure. All medicine(s) and interventions are by my order.
[2024-06-27] MEDS: ceFAZolin 330 MG/ML 1 GM VIAL ONE (08:54)
[2024-06-27] MEDS: ceFAZolin 330 MG/ML 1 GM VIAL IV SCH (08:54)
[2024-06-27] MEDS: MIDAZOLAM HCL 5 MG/ML 1 ML VIAL ONE (10:04)
[2024-06-27] MEDS: fentaNYL citrate PF 100 MCG/2 ML VIAL ONE (10:04)
--- NOTE | 2024-06-27 10:11 | Electrophysiology Report ---
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 The left prepectoral region was anesthetized with 1% lidocaine local anesthetic and left axillary venipuncture was performed by percutaneous technique and a guidewire placed through the left subclavian vein into the superior vena cava. The area was further infiltrated with 1% lidocaine local anesthetic and a 5 cm incision was made parallel to the left clavicle and 2 cm below it and carried down to the anterior pectoralis fascia. A pacemaker pocket was formed by blunt dissection anterior to the pectoralis fascia and a vancomycin-soaked sponge was placed in the pocket. An 9 [employer] Med[employer] lead introducer was placed over the guidewire into the left subclavian vein, the dilator and guidewire were removed and a bipolar active fixation steroid tipped atrial lead was advanced through the introducer into the superior vena cava. A guidewire was placed through the introducer and the introducer was stripped from the lead and guidewire. A 7 [employer] Medtronic lead introducer was placed over the guidewire into the left subclavian vein, the dilator and guidewire were removed. A C315 His 02 septal sheath was advanced through the introducer over a guidewire and advanced into the right ventricular outflow tract. The guidewire and dilator were removed and the sheath was positioned in a mid septal location. A bipolar active fixation steroid tipped ventricular lead was advanced through the introducer and rotated to advance the screw into the septum. Septal penetration was confirmed by electrogram morphology. Pacing and sensing thresholds were evaluated in bipolar configuration and are noted on the data sheet. The septal sheath was stripped away from the lead. The introducer was removed over the the guidewire. Using a curved stylette the atrial lead was positioned in the region of the atrial appendage and the screw extended fixing the lead in position. Pacing and sensing thresholds were evaluated in bipolar configuration and are recorded on the implant data sheet. Once the leads were in position they were attached to the anterior pectoralis fascia using 2 sutures of 2-0 silk around each lead collar. The vancomycin soaked sponge was removed from the pocket, hemostasis was obtained, the pacemaker was attached to the leads and placed in the pocket with the leads coiled beneath it. The incision was closed with a running double subcutaneous closure of 3-0 Vicryl absorbable suture, followed by running subcuticular skin closure of 4-0 Vicryl absorbable suture. Bacitracin ointment was placed on the incision and a dressing applied. [facility] [place] Electrophysiology codes Indication for Procedure (1) CHB (complete heart block): Pacing Procedure 1: Pacin Insert/Replace Pacer A & V PG Moderate Sedation Codes Moderate Sedation Codes Procedure 1: Sedation/Anesthesia: 99145 Mod Sedation by the same physician;Init15 Min Child Age 5 & Up Procedure 2: Sedation/Anesthesia: 88318 Mod Sedation by the same physician; Ea [id number] Minutes
--- NOTE | 2024-06-27 10:12 | Post Anesthesia Assessment ---
Date of Service June 27, 2024 Post Sedation Assessment Vital Signs Temp Pulse Pulse Resp BP BP Pulse Ox 06/27/24 07:24 36.6 C 55 L 18 134/69 95 06/27/24 03:42 36.6 C 59 L 18 119/65 95 06/26/24 22:41 36.7 C 67 16 135/75 94 06/26/24 21:48 60 06/26/24 20:11 36.9 C 57 L 18 128/70 98 06/26/24 16:01 59 L 06/26/24 15:44 36.4 C L 56 L 16 152/86 H 96 06/26/24 11:15 36.5 C 68 18 121/70 95 O2 Del Method 06/27/24 07:24 Room Air 06/27/24 03:42 Room Air 06/26/24 22:41 Room Air 06/26/24 21:48 06/26/24 20:11 Room Air 06/26/24 16:01 06/26/24 15:44 Room Air 06/26/24 11:15 Room Air Recovery Score Activity: Moves 4 extremities Respiration: Deep Breath/Cough Circulation: +/-20% PreAnes Value Consciousness: Fully Awake Oxygen Saturation: > 92% On Room Air Discharge Sedation Level of Care: Fast Track Phase II Post Sedation Plan On clinical assessment, the patient appears to have tolerated the sedation without complications. Patient is recovering as anticipated. Patient will continue to be monitored by nursing and may be discharged when sedation discharge criteria are met per below protocol. Upon Completions of procedure up to 15 minutes continue every 5 minute vital signs and the P.A.R. score; then discharge to a Phase I or Fast Track to Phase II per the following guidelines: * Discharge Patient to appropriate Phase II area if PAR is 8 or greater or return to pre- procedure baseline. The post - procedure orders will be as directed. * If PAR score is less than 8 or not return to pre-procedure baseline then patient will follow Phase I monitoring till PAR is reached for Phase II. The Phase I may be done in procedure room or may call to secure a Phase I area. * If naloxone or flumazenil are used for reversal, hold in Phase I for continued monitoring from when last reversal dose was given for a minimum of 60 minutes or longer pending the nurse and/or physician discretion of patient condition before discharge to Phase II. Please call the Sedation Physician to re-evaluate and complete post-note for discharge to Phase II area. Do NOT discharge from procedure sedation or Phase 1 until post- sedation evaluation note is complete by procedure /sedation MD Sedation Discharge Instructions to be given to the patient at discharge to home.
[2024-06-27] MEDS: LIDOCAINE 1% LOCAL 20 ML VIAL ONE (11:02)
--- NOTE | 2024-06-27 11:41 | XRay Report ---
XR chest 2V PA/lateral CLINICAL HISTORY: EXACT TIME ORDERED Evaluate for pneumothorax and l COMPARISON STUDY: 06/23/2024 FINDINGS: There is an interval left-sided pacemaker. Stable cardiac loop recorder. Heart size and pul monary vasculature are normal. No effusion, consolidation, or pneumothorax. IMPRESSION: No pneumothorax. ACT 112: Negative or not required by law. Electronically signed by: Mason Butler M.D. 06/27/2024 11:39 AM
--- NOTE | 2024-06-27 13:22 | Electrocardiogram Report ---
Test Reason : Blood Pressure : */* mmHG Vent. Rate : 60 BPM Atrial Rate : 60 BPM P-R Int : 260 ms QRS Dur : 120 ms QT Int : 458 ms P-R-T Axes : * 212 72 degrees QTcB Int : 458 ms Atrial-paced rhythm with prolonged AV conduction Right bundle branch block Abnormal ECG When compared with ECG of 23-Jun-2024 16:22, Electronic atrial pacemaker has replaced Sinus rhythm Right bundle branch block is now Present Confirmed by Sanjay Fitzgerald ([id number]) on 06/27/2024 1:22:00 PM Referred By: REFERRED SELF Confirmed By: Sanjay Fitzgerald
--- NOTE | 2024-06-27 13:28 | Electrophysiology Report ---
Date of Service June 27, 2024 Electrophysiology Procedure Electrophysiology Procedure Report Preoperative diagnosis: Loop recorder no longer needed Postoperative diagnosis: Same Procedure: Loop recorder explant Surgeon: Robbin Perez MD Estimated blood loss: 2 cc Anesthesia: Local without sedation Specimens: Loop recorder, return to [employer] Complications: None Procedure details: After obtaining informed consent for the procedure from the patient's , the patient was brought to the laboratory having had nothing by mouth after midnight. The location of the loop recorder was identified by palpation. The patient was prepped and draped in the standard sterile manner for a loop recorder removal. The area was infiltrated with 1% lidocaine local anesthetic and a 1 cm incision was made through the old implant scar and carried down to the loop recorder. The loop recorder was dissected free of tissue and explanted. The incision was closed with a subcutaneous continuous closure of 4-0 Vicryl followed by running subcuticular skin closure of 4-0 Vicryl. Steri-Strips were applied and bacitracin ointment was placed on the incision. A dressing was applied. [facility] [place] Electrophysiology codes Indication for Procedure (1) Implantable loop recorder present: Implantable Monitors Procedure 1: Implantable Monitors: [id number] Loop Recorder Explant
--- NOTE | 2024-06-27 14:00 | Cardiology Progress Note ---
Date of Service June 27, 2024 Assessment & Plan (1) Status post placement of cardiac pacemaker: Plan Postop pacemaker implantation and loop recorder removal: Stable for discharge. I will arrange follow-up for 2 days. Admission and Anticipated Discharge Date Admission Date: June 23, 2024 Subjective Patient has no complaints Physical Exam Physical Exam: Cardiac rhythm is regular with no rub Lungs are clear Both the pacemaker site and the recorder site are clean and dry Results & Data Vital Signs (Past 12 Hours) Vital Signs Temp Pulse Pulse Resp BP Pulse Ox O2 Del Method 06/27/24 12:21 78 14 136/96 96 Room Air 06/27/24 11:00 36.3 C L 60 17 148/91 H 94 Room Air 06/27/24 10:49 36.4 C L 60 18 157/85 H 96 Room Air 06/27/24 10:30 60 64 14 158/77 H 98 Room Air 06/27/24 10:15 14 L 64 14 154/84 H 98 Room Air 06/27/24 10:15 14 L 64 14 154/84 H 98 Room Air 06/27/24 07:24 36.6 C 55 L 18 134/69 95 Room Air 06/27/24 03:42 36.6 C 59 L 18 119/65 95 Room Air Diagnostic Findings Chest x-ray: Good lead position, no pneumothorax Postop ECG: Atrial pacing with intact AV conduction, appropriate function Pacemaker evaluation: Excellent pacing and sensing characteristics in both leads PG Care Time/CCT Total # of Minutes Spent Total Time Spent with Patient: Total time spent is greater than 50% in coordination of care (as documented) at patient's floor/unit and/or counseling patient: Coding Level of Care Code 74480 Post Operative Follow-Up Diagnoses Status post placement of cardiac pacemaker Z95.0
[2024-06-27 15:06] VITALS: RESP 16; O2SAT 93
[2024-06-27 15:52] VITALS: BP 135/75; PULSE 78
[2024-06-27 16:57] VITALS: TEMP 97.7
--- NOTE | 2024-06-28 08:56 | Discharge Summary ---
Discharge Summary Date of Service June 27, 2024 Principal Dx & Hospital Course #1 = Principal Diagnosis (1) CHB (complete heart block): (2) Ischemic heart disease due to coronary artery obstruction: (3) Dementia: (4) DM2 (diabetes mellitus, type 2): Plan #Complete heart blockcurrently sinus rhythm and asymptomatic. Family feels his quality of life would definitely warrant proceeding with a pacemaker. Admit to telemetry, pacemaker pads at bedside. Cardiology informed in case complete heart block were to ensue so that they are aware for the potential for transvenous placement. Obviously no intervention is required at this time as he is sinus rhythm and asymptomatic. Plan for pacemaker on Wednesday No current issues #Type 2 diabeteshis A1c is 6.2. Hold his sulfonylurea, check fingersticks, add supplemental insulin only if needed #dementiarisk for delirium. Melatonin at bedtime (daughter asked for something to help him sleep and I discussed the deliriogenic risk of most other medications), asked for him to be in a solo room or at least a window if at all possible. Daughter should be allowed to stay with him . #Coronary artery diseaseseems to be stable. Continue home medications. Hold aspirin and Brilinta once necessary for pacemaker. #DVT prophylaxisLovenox Admission HPI Per Admitting Provider patient is a very pleasant but very demented 79-year-old male. Daughter notes that they were called by the cardiology office because his loop recorder was showing intermittent complete heart block. He has had rather random fainting and unresponsive spells leading to the loop recorder, and it apparently then was showing complete heart block so he was sent in. Fortunately he is currently in sinus rhythm and totally asymptomatic. He offers extremely limited HPI or review of systems due to his dementia, but his daughter is present at the bedside and notes that he generally has very good quality of life he lives next- door to his daughter and lives with his , and seems to enjoy his life. With that in mind she would much prefer that he proceed with getting a pacemaker. No current symptoms. Discharge Exam General he is awake and alert Cardio: RRR Lungs: clear to auscultation bilaterally no rales rhonchi or wheezes good effort. Abdomen: soft nondistended nontender no masses organomegaly. Neuro: no focal deficits Ext: no edema Discharge Plan Discharge Items Patient Disposition: Home - Self-Care Reason For Visit: COMPLETE HEART BLOCK Discharge Diagnosis: complete heart block Condition on Discharge: Fair Activity: Resume your previous activity Non-emergency contact: Primary Care Provider Call non-emergency contact if: you have any medication questions Follow-up/Referrals: Robbin Perez MD [Physician] - 06/29/24 11:00 am July Brown MD [Primary Care Provider] - 07/06/24 9:45 am (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 SPECIAL CARE INSTRUCTIONS: * If bleeding occurs, apply direct pressure to area for 5 minutes. * Call your doctor if you have severe pain, fever, drainage or bleeding at site. * Keep dressing on and dry for 48 hours then remove. * Keep any scheduled doctor's appointment. * Implant Card - hand held device with website information given. SKIN IRRITATION: * You may experience some redness and/or swelling in the area where radiation was administered. If any skin irritation occurs, please contact your family physician. FOLLOW UP VISIT: Keep any scheduled doctor appointments. Pending Studies at Discharge: No Stand-Alone Forms: My [employer]ee[employer], Smoking Cessation Medications and DC Order Prescriptions: Continued donepezil 10 mg tablet 10 mg PO BID Qty: 180 3RF sertraline 25 mg tablet 25 mg PO HS colestipol [Colestid] 1 gram tablet 1 g PO BID Rx Instructions: MUST GIVE 2 GRAM AT 1230 & 2230 DO NOT GIVE WITH OTHER MEDS. MUST BE 1 HOUR FROM ALREADY ADMINISTERED MEDS AND 4 HOURS APART FROM TAKING NEXT SCHEDULED MEDS multivitamin Tablet 1 tab PO QAM aspirin 81 mg Tablet,Delayed Release (Dr/Ec) 81 mg PO QAM cholecalciferol (vitamin D3) [Vitamin D3] 1,000 unit Tablet 1,000 units PO QAM omeprazole 40 mg capsule,delayed release(DR/EC) 40 mg PO BIDM ascorbic acid (vitamin C) [Vitamin C] 1,000 mg Tablet 1 g PO QAM acetaminophen 650 mg Tablet Extended Release 1,300 mg PO AMPM levocetirizine [Xyzal] 5 mg Tablet 5 mg PO QAM Probiotic 10 billion cell Capsule 10,000 mmu cells PO QAM glipizide 2.5 mg tablet extended release 24hr 2.5 mg PO QDD Rx Instructions: Per daughter/caregiver, the patient takes an additional 2.5mg tablet by mouth IF he eats a sugary snack. rosuvastatin 20 mg tablet 20 mg PO QDD Rx Instructions: Please take Rosuvastatin 20 mg 1 tablet daily Discontinued Brilinta 90 mg tablet 90 mg PO BID Qty: 90 1RF Rx Instructions: Take Brilinta 90 mg 1 tablet twice daily for a total of 180mg per day. Discharge Orders: Discharge Order (Routine); Ordered 06/27/24 Ordered By: Juventino Fitzpatrick/Other Patient Handouts: Pacemakers, Living with a Pacemaker, Managing Type 2 Diabetes Admission Data Admit Date/Time: 06/23/24 18:15 Attending Provider: Juventino Crum Admit Provider: Micky Morse Primary Care Provider: July Brown Other Providers: Juventino Crum; Sanjay Fitzgerald Other Interventions: Discharge Summary Assessment (RN) Last Done: 06/27/24 15:51 Hospital Stay Data Consultations 06/23/24 17:23 ED Decision to Admit Stat 06/23/24 21:14 Consult Cardiology Routine Procedures Performed Operation Date: 06/27/24 13:00 Actual Procedures p Remove Cardiac Event Recorder - Robbin Perez MD Diagnostic Imagining Performed 06/26/24 08:05 CL Cath Imgs for PACS use only Routine 06/27/24 07:00 EP Lab Images for PACS ONCE Pending Results Patient Have Any Pending Studies at Discharge: No Discharge Instructions Given to Patient (Per Discharging Provider) recommend followup with PCP in 1-2 weeks Coding Diagnoses CHB (complete heart block) I44.2 Ischemic heart disease due to coronary artery obstruction I24.0; I25.9 Dementia F03.90 DM2 (diabetes mellitus, type 2) E11.9
== END 2024-06-27 17:41 | disposition home or self-care (01) | DRG 244 ==
LOC: ED 16:09 → 2S 18:15 → SUATTDRO 18:15 → 2S 20:29